=== PATIENT | female | born 1935 | race Caucasian/White ===

== ENCOUNTER 2019-02-04 20:21 | Inpatient (IN) | payer MEDICARE, BC ==
[~2019-02-04] VITALS: Ht 152.4 cm; Wt 63.5 kg
--- OUTSIDE RECORDS SUMMARY | ~2019-02-04 | XMS | Encounter Summary ---
Demographics + + + | Address | [address] | | | [place] [address] | + + + | Home Phone | | + + + | Preferred Language | Unknown | + + + | Marital Status | | + + + | Baptist Affiliation | 1013 | + + + | Race | Unknown | + + + | Ethnic Group | Unknown | + + + Author + + + | Author | [facility] | | | and [place] | + + + | Organization | [facility] | | | and [place] | + + + | Address | Unknown | + + + | Phone | Unavailable | + + + Support + + +---------+ + | Name | Relationship | Address | Phone | + + +---------+ + | Guillermina Ashley | ECON | Unknown | | + + +---------+ + | Anthony Ashley | ECON | Unknown | | + + +---------+ + Care Team Providers + +------+ + | Care Senior Graphic Designer Name | Role | Phone | + +------+ + | Darion Cohn DO | PCP | | + +------+ + Encounter Details +--------+---------+ + + + | Date | Type | Department | Care Team | Description | +--------+---------+ + + + | 12/06/ | Office | [facility] | Angel Alcantara MD | CKD (chronic kidney | | 2019 | Visit | [facility]PHROLOG[facility] [place] | [address] [place] | disease) stage 3, | | | | [address] [place] | [address] [place], [place] | GFR 30-59 ml/min | | | | [address] [place], [place] | [address] | (HCC) (Primary Dx); | | | | [address] | | Persistent | | | | [phone] | | proteinuria; | | | | | | Hypomagnesemia; | | | | | | Electrolyte | | | | | | imbalance risk; | | | | | | Secondary | | | | | | hyperparathyroidism | | | | | | (HCC) | +--------+---------+ + + + Social History + + + +--------+ + | Tobacco Use | Types | Packs/Day | Years | Date | | | | | Used | | + + + +--------+ + | Former Smoker | Cigarettes | 0 | 25 | Quit: 02/17/2002 | + + + +--------+ + + +---+---+---+ | Smokeless Tobacco: | | | | | Never Used | | | | + +---+---+---+ + + | Comments: quit in 2000 | + + + + +---------+ + | Alcohol Use | Drinks/We | oz/Week | Comments | | | ek | | | + + +---------+ + | No | | | | + + +---------+ + + + + | Sex Assigned at | Date Recorded | | | | + + + | Not on file | | + + + + + + + | Job Start Date | Occupation | Industry | + + + + | Not on file | Not on file | Not on file | + + + + + + + + | Travel History | Travel Start | Travel End | + + + + + + | No recent travel history available. | + + documented as of this encounter Last Filed Vital Signs + + + + | Vital Sign | Reading | Time Taken | + + + + | Blood Pressure | 111/60 | 12/06/20181208 PDT | + + + + | Pulse | 61 | 12/06/20181208 PDT | + + + + | Temperature | - | - | + + + + | Respiratory Rate | - | - | + + + + | Oxygen Saturation | 93% | 12/06/20181208 PDT | + + + + | Inhaled Oxygen | - | - | | Concentration | | | + + + + | Weight | 64.8 kg (142 lb 14.4 | 12/06/2018 1209 PDT | | | oz) | | + + + + | Height | 152.4 cm (5') | 12/06/2018 1209 PDT | + + + + | Body Mass Index | 27.91 | 12/06/2018 1209 PDT | + + + + documented in this encounter Patient Instructions Patient Instructions Angel Alcantara MD - 12/06/2018 11:50 PDTDiscussions/Recommendations: I discussed today with Ms. Ashley the meaning of her CKD and the interaction of that w ith her hemodynamics. I stressed the importance of keeping her BP controlled and avoiding getting dehydrated if we are to have a chance at helping preserve her renal function. she showed good understa nding. I gave her instructions on how to chart her blood pressure in the appropriate manner at home, she showed good understanding. she is to call us if they fall outside of the optimal provided range. she will bring her sphygmomanometer for validation once a year. she will abide by a low salt diet. She will avoid all kinds of NSAIDs for analgesia. Also: I downtitrated slowly her Torsemide to 10 mg alternating with 5 mg every other day; if h er dyspnea or leg edema come back, she is to go right back to the Torsemide at 10 mg daily. BP Charting: she will bring me back her home weights & BP charts in 8 weeks. At that quan e, I will decide whether any changes to her vasoactive regimen are warranted. She will F/U closely with the Cardiology team. She will F/U with your office regularly. She will have RFP, Magnesium, CBC, Urine total oqqdqbc-ur-nfdvgawsic ratio done before s he comes back in 4 months. documented in this encounter Progress Notes Angel Alcantara MD - 12/06/2018 1150 PDT Patient Active Problem List Diagnosis Date Noted POA Persistent atrial fibrillation 11/22/2018 Unknown Orthostatic hypotension 11/22/2018 Unknown Hypoxia 11/22/2018 Unknown Falls frequently 09/13/2018 Unknown Pacemaker 07/12/2018 Unknown Generalized weakness 03/08/2018 Unknown Typical atrial flutter 10/05/2017 Unknown Bilateral carotid artery stenosis 08/01/2017 Unknown Tricuspid regurgitation 08/01/2017 Unknown Fusion of spine of cervical region 10/30/2015 Unknown Chronic combined systolic and diastolic congestive heart failure 12/23/2014 Unknown Pulmonary hypertension 12/23/2014 Unknown Sinus node dysfunction 12/22/2014 Unknown Persistent atrial fibrillation 12/22/2014 Unknown Lumbar facet arthropathy 10/17/2014 Unknown Lumbar stenosis 09/13/2014 Unknown RIGOBERTO (obstructive sleep apnea) Unknown Hearing loss Unknown Broken heart syndrome Unknown Seizures Unknown Depression Unknown Periodic limb movement disorder (PLMD) Unknown Stress-induced cardiomyopathy 11/11/2012 Unknown Hypokalemia 11/09/2012 Unknown NSTEMI (non-ST elevated myocardial infarction) 11/02/2012 Unknown Essential hypertension with goal blood pressure less than 130/80 01/14/2011 Unknown Hypomagnesemia 01/14/2011 Unknown Persistent proteinuria 01/14/2011 Unknown Stage 4 chronic kidney disease 01/14/2011 Unknown Subdural hematoma, post-traumatic 10/03/[address] Cohn: I saw your patient Ms. Ashley in F/U today. As you are familiar with her case, I will no t state her past history in detail. Briefly, she is a 82 y.o. female patient with past hist ory as delineated above; she is here to follow up on her CKD & its associated complications . 07/2018: stage 1 CASEY (acute kidney injury) that is hemodynamic in the setting of ADHF. ER visit April 2017 for shortness of breath. She had increasing sore shortness of breath after not taking her furosemide for 2 days. ER lab work showed creatinine of 0.99, GFR 54 an d potassium 3.9. BNP 965. She says that she feels 'good ' today, shortness of breath improved after resuming Torsemid e. she has chronic SOTO - wears O2 only at night. she denies any blurred vision, tinnitus, headache, fever, chills, or cough. No nausea, v omiting, abdominal pain, diarrhea, melena, or hematochezia. No chest pain, palpitation, diz ziness, loss of consciousness, orthopnea, paroxysmal nocturnal dyspnea, or leg edema. She us es O2 at night. No dysuria, hematuria, incontinence, or symptoms of UTI; she has 2 nightly nocturia. No history of passing kidney stones. The following portions of the patient's history were reviewed and updated as appropriate: a llergies, current medications, past medical history, past social history, past surgical hist ory, family history and problem list. *I also reviewed with her the records from her most recent hospitalization, including the d ischarge summary. She lives in [place], [place] with her in their own home, 60+ years, daughter lives in [place], [place]. She was a school of nursing director. As in History of Present Illness & in Assessment. All the pertinent systems were reviewed a nd were otherwise negative. Current Outpatient Prescriptions Medication Sig Dispense Refill acetaminophen (TYLENOL) 325 MG tablet Take 650 mg by mouth as needed. allopurinol (ZYLOPRIM) 100 MG tablet Take 100 mg by mouth daily. amiodarone (PACERONE) 200 MG tablet Take 1 tablet by mouth daily. 30 tablet 11 apixaban (ELIQUIS) 2.5 MG tablet Take 1 tablet by mouth 2 (two) times daily. 60 tablet 11 aspirin 81 MG tablet Take 1 tablet by mouth daily. 30 tablet 11 atorvastatin (LIPITOR) 80 MG tablet Take 80 mg by mouth daily. Cholecalciferol (VITAMIN D3) 1000 UNITS capsule Take 5,000 Units by mouth nightly. cyanocobalamin (VITAMIN B-12) 500 MCG tablet Take 500 mcg by mouth daily. digoxin (LANOXIN) 0.125 MG tablet Take 1 tablet by mouth every 3 (three) days. 10 table t 11 docusate sodium (COLACE) 100 MG capsule Take 100 mg by mouth 2 (two) times daily. ferrous sulfate, 65 FE, 324 (65 FE) MG EC tablet Take 65 mg of iron by mouth 3 (three) times daily with meals. folic acid (FOLVITE) 1 MG tablet Take 1 mg by mouth daily. gabapentin (NEURONTIN) 300 MG capsule Take 300 mg by mouth 2 (two) times daily. HYDROcodone-acetaminophen (NORCO) 10-325 MG per tablet Take 1 tablet by mouth every 4 ( four) hours as needed for Pain. 180 tablet 0 levothyroxine (SYNTHROID) 100 MCG tablet Take 112 mcg by mouth every morning before rosario akfast. MAGNESIUM PO Take 64 mg by mouth 3 (three) times daily. metoprolol (TOPROL-XL) 25 MG 24 hr tablet Take 1 tablet by mouth 2 (two) times daily. ( Patient taking differently: Take 12.5 mg by mouth nightly.) 60 tablet 11 potassium chloride SA (K-DUR) 10 MEQ tablet Take 1 tablet by mouth daily. 30 tablet 11 pramipexole (MIRAPEX) 0.5 MG tablet Take 0.5 mg by mouth nightly. Take two tablets nigh tly. sertraline (ZOLOFT) 100 MG tablet Take 100 mg by mouth daily. torsemide (DEMADEX) 20 MG tablet Take 0.5 tablets by mouth daily. 30 tablet 11 ranitidine (ZANTAC) 150 MG tablet Take 150 mg by mouth daily. No current facility-administered medications for this visit. Facility-Administered Medications Ordered in Other Visits Medication Dose Route Frequency Provider Last Rate Last Dose regadenoson (LEXISCAN) injection 0.4 mg 0.4 mg Intravenous Img Once PRN Juve Lopez MD Physical Exam: BP 111/60 | Pulse 61 | Ht 1.524 m (5') | Wt 64.8 kg (142 lb 14.4 oz) | SpO2 93% | BMI 27.91 kg/m General appearance: Pleasant, elderly female, not in acute distress. Uses 2ww. Neck: Supple without tracheal deviation or jugular venous distension. Head and ENT: Head is atraumatic. The oropharynx is without erythema or thrush. Eyes: Anicteric. The extraocular muscle movements are normal. Lungs: Clear to auscultation bilaterally. There are no wheezes. Heart: Regular rate and rhythm without any rub, gallop. No murmur. Abdominal exam: Obese. Soft and nontender with normal bowel sounds. Musculoskeletal: No costovertebral angle tenderness bilaterally. Extremities: Warm to touch with trace leg edema, support hose on. There is no cyanosis. Skin: There are no rashes, petechiae, or ecchymosis. Neurological: Awake, alert, and oriented to time, place, and person. Normal gross motor po wer. There is no asterixis. Lab Results Component Value Date BUN 35 (H) 08/24/2018 CREATININE 1.9 (H) 08/24/2018 EGFR 25 (L) 08/24/2018 NA 141 08/24/2018 K 4.0 08/24/2018 CL 110 (H) 08/24/2018 CO2 21 (L) 08/24/2018 CA 8.8 08/24/2018 PHOS 3.4 08/24/2018 MG 2.0 08/24/2018 ALB 3.7 08/24/2018 HGB 12.3 08/24/2018 URICACID 4.7 03/24/2017 WBC 6.94 08/24/2018 HCT 36.9 08/24/2018 FERRITIN 520 (H) 11/14/2012 LABIRON 40 04/09/2016 LABPROT 0.172 08/24/2018 [id number] 53 05/11/2017 Assessment: Ms. Ashley is a 82 y.o. female patient with stage IV CKD on a background of longstanding hypertension & recurrent CASEY's. 07/2018: stage 1 CASEY (acute kidney injury) that is hemodynamic in the setting of ADHF. She had a severe CASEY in the summer of 2012 (SDH; seizure; cardiomyopathy with EF 25%; PAD); needed HD x2 sessions, before her GFR improved. RENAL FUNCTION: Fairly stable BLOOD PRESSURE: Low at home, mostly in the 100's systolic. BLOOD SUGAR: Reportedly normal ELECTROLYTES: Normal ANEMIA: None now VITAMIN D: Deficiency is corrected with treatment PARATHYROID HORMONE: Mildly up URIC ACID: Improved now PROTEINURIA: Mild historically URINALYSIS: No UTI symptoms today, no hematuria, possible colonizer VOLUME STATUS: Euvolumic. Discussions/Recommendations: I discussed today with Ms. Ashley the meaning of her CKD and the interaction of that w ith her hemodynamics. I stressed the importance of keeping her BP controlled and avoiding getting dehydrated if we are to have a chance at helping preserve her renal function. she showed good understa nding. I gave her instructions on how to chart her blood pressure in the appropriate manner at home, she showed good understanding. she is to call us if they fall outside of the optimal provided range. she will bring her sphygmomanometer for validation once a year (ok in spring 2018). she will abide by a low salt diet. She will avoid all kinds of NSAIDs for analgesia. Also: I downtitrated slowly her Torsemide to 10 mg alternating with 5 mg every other day; if h er dyspnea or leg edema come back, she is to go right back to the Torsemide at 10 mg daily. BP Charting: she will bring me back her home weights & BP charts in 8 weeks. At that quan e, I will decide whether any changes to her vasoactive regimen are warranted. She will F/U closely with the Cardiology team. She will F/U with your office regularly. She will have RFP, Magnesium, CBC, Urine total wfrkhen-kw-ignvqmtosp ratio done before s he comes back in 4 months. I spent 15 minutes of this 25-minute visit in education, counseling and answering all of he r questions to her satisfaction. Thank you Dr. Cohn for the opportunity to see this patient in follow up on an urgent basis today. Please do not hesitate to call me at any time with questions or concerns. Truly yours, Angel Alcantara MD documented in this encount er Plan of Treatment +--------+ + + + + | Date | Type | Specialty | Care Team | Description | +--------+ + + + + | 02/21/ | Procedure | Cardiology | | | | 2018 | visit | | | | +--------+ + + + + | 02/23/ | Office | Cardiology | Myron Hernandez, | | | 2018 | Visit | | MD [address] | | | | | | [place] | | | | | | [address] | | | | | | | | +--------+ + + + + | 02/23/ | Procedure | Cardiology | | | | 2018 | visit | | | | +--------+ + + + + | 05/23/ | Procedure | Cardiology | | | | 2019 | visit | | | | +--------+ + + + + documented as of this encounter Visit Diagnoses + + | Diagnosis | + + | CKD (chronic kidney disease) stage 3, GFR 30-59 ml/min ([facility]) - Primary Chronic kidney | | disease, Stage III (moderate) | + + | Persistent proteinuria Proteinuria | + + | Hypomagnesemia Disorders of magnesium metabolism | + + | Electrolyte imbalance risk Other specified conditions influencing health status | + + | Secondary hyperparathyroidism (HCC) Secondary hyperparathyroidism (of renal origin) | + + documented in this encounter"
--- OUTSIDE RECORDS SUMMARY | ~2019-02-04 | XMS | Encounter Summary ---
Demographics + + + | Address | [address] | | | [place] [address] | + + + | Home Phone | | + + + | Preferred Language | Unknown | + + + | Marital Status | | + + + | Cheondoism Affiliation | 1013 | + + + | Race | Unknown | + + + | Ethnic Group | Unknown | + + + Author + + + | Author | [facility] | | | and [place] | + + + | Organization | [facility] | | | [...] Team Providers + +------+ + | Care Assembler Piano Name | Role | Phone | + +------+ + | Darion Cohn DO | PCP | | + +------+ + Reason for Visit + + + | Reason | Comments | + + + | Device Check | Routine | | (In-office) | | + + + Encounter Details +--------+ + + + + | Date | Type | Department | Care Team | Description | +--------+ + + + + | 11/22/ | Procedure | [facility] | | Persistent atrial | | 2019 | visit | CARDIOLOGY [place] | | fibrillation (HCC) | | | | [address] | | (Primary Dx); | | | | [place], [place] | | Typical atrial | | | | [address] | | flutter (HCC); | | | | [phone] | | Pacemaker | +--------+ + + + + Social History + + [...] + + documented as of this encounter Plan of Treatment +--------+ + + + [...] | | | | | [place] | | | | | | [address] | | | | | | | | +--------+ + + + + | 02/23/ | Procedure | Cardiology | | | | 2018 | visit | | | | +--------+ + + + + | 05/23/ | Procedure | Cardiology | | | | 2019 | visit | | | | +--------+ + + + + + +--------+ + + | Name | Priori | Associated Diagnoses | Order Schedule | | | ty | | | + +--------+ + + | Device Interrogation | Routin | Persistent atrial | Ordered: 11/22/2018 | | | e | fibrillation (HCC) | | | | | Typical atrial | | | | | flutter (HCC) | | | | | Pacemaker | | + +--------+ + + documented as of this encounter Visit Diagnoses + + | Diagnosis | + + | Persistent atrial fibrillation - Primary Atrial fibrillation | + + | Typical atrial flutter (HCC) Atrial flutter | + + | Pacemaker Cardiac pacemaker in situ | + + documented in this encounter"
--- OUTSIDE RECORDS SUMMARY | ~2019-02-04 | XMS | Encounter Summary ---
Demographics + + + | Address | [address] | | | [place] [address] | + + + | Home Phone | | + + + | Preferred Language | Unknown | + + + | Marital Status | | + + + | Jainism Affiliation | 1013 | + + + | Race | Unknown | + + + | Ethnic Group | Unknown | + + + Author + + + | Author | [facility] | | | and [place] | + + + | Organization | [facility] | | | and [...] Team Providers + +------+ + | Care Guidance Secretary Name | Role | Phone | + [...] + + | 11/22/ | Procedure | [facility] | | Persistent atrial | | 2019 | visit | CARDIOLOGY [place] | | fibrillation (HCC) | | | | [address] | | (Primary Dx); | | | | [place], [place] | | Typical atrial | | | | [address] | | flutter (HCC); | | | | [phone] | | Pacemaker | +--------+ + + [...] | | | | | [place] | | | | | | [address] | | | | | | | [...]
--- OUTSIDE RECORDS SUMMARY | ~2019-02-04 | XMS | Encounter Summary ---
Demographics + + + | Address | [address] | | | [place] [address] | + + + | Home Phone | | + + + | Preferred Language | Unknown | + + + | Marital Status | | + + + | Samaritan Affiliation | 1013 | + + + | Race | Unknown | + + + | Ethnic Group | Unknown | + + + Author + + + | Author | [email or web address] [employer] (Historical as of | | | 11-19-18) | + + + | Organization | [facility] [employer] (Historical as of | | | 11-19-18) | + + + | Address | [...] Team Providers + +------+ + | Care Wash Crew Person Name | Role | Phone | + +------+ + | Darion Cohn MD | PCP | | + +------+ + Reason for Visit + + + | Reason | Comments | + + + | Labs Only | 10/25/18 | + + + Encounter Details +--------+ + + + + | Date | Type | Department | Care Team | Description | +--------+ + + + + | 11/04/ | Documentati | [facility] | Richard | Labs Only (10/25/18) | | 2019 | on Only | [address] | | | | | [address] | | | | | | [place] [address] | | | | | | [phone] | | | +--------+ + + + + Social History + +-------+ +--------+ + | Tobacco Use | Types | Packs/Day | Years | Date | | | | | Used | | + +-------+ +--------+ + | Former Smoker | | 0 | 25 | Quit: 2001 | + +-------+ +--------+ + + +---+---+---+ | Smokeless Tobacco: [...] on file | | + + + as of this encounter Plan of Treatment +--------+ + + + + | Date | Type | Specialty | Care Team | Description | +--------+ + + + + | 02/21/ | Documentati | Cardiology | | | | 2019 | on Only | | | | +--------+ + + + + | 05/23/ | Documentati | Cardiology | | | | 2019 | on Only | | | | +--------+ + + + + as of this encounter Procedures + +--------+ + + + | Procedure Name | Priori | Date/Time | Associated Diagnosis | Comments | | | ty | | | | + +--------+ + + + | DIGOXIN LEVEL | Routin | 10/25/2018 | | Results for this | | | e | 12:15 PM | | procedure are in the | | | | PDT | | results section. | + +--------+ + + + | BASIC METABOLIC | Routin | 10/25/2018 | | Results for this | | PANEL | e | 12:15 PM | | procedure are in the | | | | PDT | | results section. | + +--------+ + + + in this encounter Results Basic metabolic panel (10/25/2018 12:15 PM) + + + + + | Component | Value | Ref Range | Performed At | + + + + + | GLUCOSE | 139 (A) | 70 - 100 mg/dL | | + + + + + | BUN | 20 | 6 - 23 mg/dL | | + + + + + | CREATININE | 1.18 (A) | 0.70 - 1.11 mg/dL | | + + + + + | BUN/CREAT | 16.9 | 6.0 - 28.6 | | + + + + + | CALCIUM | 9.1 | 8.5 - 10.3 mg/dL | | + + + + + | SODIUM | 143 | 132 - 143 mmol/L | | + + + + + | POTASSIUM | 3.4 (A) | 3.6 - 5.1 mmol/L | | + + + + + | CHLORIDE | 106 | 95 - 112 mmol/L | | + + + + + | CO2 | 27 | 19 - 31 mmol/L | | + + + + + | ANION GAP AGAP | 13.4 | 7 - 21 mmol/L | | + + + + + | EGFR | 44 (A) | 60 - 140 mg/dL | | + + + + + + + | Specimen | + + | Blood | + + Digoxin (10/25/2018 12:15 PM) + + + + + | Component | Value | Ref Range | Performed At | + + + + + | DIGOXIN LEVEL | 0.62 (A) | 0.8 - 2.0 | | + + + + + + + | Specimen | + + | Blood | + + in this encounter Visit Diagnoses Not on filein this encounter"
--- OUTSIDE RECORDS SUMMARY | ~2019-02-04 | XMS | Encounter Summary ---
Demographics + + + | Address | [address] | | | [place] [address] | + + + | Home Phone | | + + + | Preferred Language | Unknown | + + + | Marital Status | | + + + | Mormonism Affiliation | [id number] | + + + | Race | Unknown | + + + | Ethnic Group | Unknown | + + + Author + + + | Author | [facility] | | | and [place] | + + + | Organization | [facility] | | | [...] Team Providers + +------+ + | Care Waxed Bag Machine Operator Name | Role | Phone | + +------+ + | Darion Cohn DO | PCP | | + +------+ + Encounter Details +--------+---------+ + + + | Date | Type | Department | Care Team | Description | +--------+---------+ + + + | 11/22/ | Office | [facility] | Myron Hernandez, | Persistent atrial | | 2018 | Visit | [facility] | [address] | fibrillation (HCC); | | | | [address] | [place], [place] | Orthostatic | | | | [place], [place] | [address] | hypotension; | | | | [address] | | Hypoxia; Essential | | | | [phone] | | hypertension with | | | | | | goal blood pressure | | | | | | less than 130/80; | | | | | | Sinus node | | | | | | dysfunction (HCC); | | | | | | Typical atrial | | | | | | flutter (HCC) | +--------+---------+ + + + Social [...] + + + | Blood Pressure | 134/64 | 11/22/2018 1015 PDT | + + + + | Pulse | 84 | 11/22/20185 PDT | + + + + | Temperature | - | - | + + + + | Respiratory Rate | - | - | + + + + | Oxygen Saturation | 98% | 11/22/20185 PDT | + + + + | Inhaled Oxygen | - | - | | Concentration | | | + + + + | Weight | 71.2 kg (157 lb) | 11/22/20185 PDT | + + + + | Height | 152.4 cm (5') | 11/22/2018 1015 PDT | + + + + | Body Mass Index | 30.66 | 11/22/2018 1015 PDT | + + + + documented in this encounter Patient Instructions Patient Instructions Myron Hernandez MD - 11/22/2018 10:00 PDTStart midodrine 5 mg at 6 A M, 10 AM, and 2 PM daily. If you get lightheaded may take another 5 mg immediately. If con sistently lightheaded, increase it to every 3 hours during the day starting at 6 AM 9 AM noo n and 3 PM Stop fludrocortisone (Florinef) Add metoprolol succinate starting with 6.25 mg daily for a week or 2 followed by 12.5 mg da duyen for a week or 2, and keep increasing it by 6.25 mg every week or 2 until you are at leas t 50 mg/day Start apixaban 5 mg twice per day Increase digoxin to 0.125 mg 3 days/week Stop amiodarone Decrease torsemide to 10 mg daily documented in this encounter Progress Notes Myron Hernandez MD - 11/22/2018 1000 PDTFormatting of this note might be different from t yenni original. ELECTROPHYSIOLOGY OUTPATIENT FOLLOW UP PATIENT NAME: Gene Ashley : 1935: AGE: 83 y.o. (home) [phone] (work): PRIMARY CARE: Darion Cohn DO Requesting Physician: Dr. Cohn Plan Problem Persistent Atrial Fibrillation (Hcc) Will now do a rate control strategy. Stop amiodarone. Resume metoprolol starting with 6. 25 mg/day and gradually increasing that to at least 25 or 50 mg/day. Resume apixaban 5 mg t wice daily since she is no longer falling. Increase digoxin to 0.125 mg 3 days/week Orthostatic Hypotension She has severe orthostatic hypotension that has improved with the addition of midodrine an d Florinef. Unfortunately, with her LV systolic dysfunction, the Florinef is leading to flu id retention and volume overload. She is now on torsemide twice per day because of edema an d shortness of breath. I recommended stopping Florinef and decreasing torsemide to 10 mg da duyen. Increase midodrine to 5 mg at 6 AM, 9 AM, noon, and 3 PM daily. She can take an extra 5 mg as needed for dizziness. Hypoxia Her saturations have dropped into the 80s sometimes with exertion. Oxygen has been recomm ended on my wholeheartedly agree with that. She uses CPAP when sleeping or if she becomes s hort of breath. Falls Frequently 3 falls today-evidence of orthostatic hypotension Pacemaker 07/12/2018 Appropriate pacer function was seen today. Atrial pacing 47%, RV pacing 28%, DDDR 60-110 b pm. Right ventricular threshold 0.75 V at 0.6 ms with an impedance of 440 ohms. Underlying atrial flutter with irregular ventricular response approximately 40 bpm. Mode switch 51% o f the time was 545 AMS episodes. AT/AF burden is 50% with the most recent episode starting on May 15, 2018 with a peak V rate of 173 bpm consistent with atrial flutter with rapid ventricular response. She has had 3 high ventricular rate episodes all consistent with atr ial flutter with rapid ventricular response 08/18/18: She was in complete heart block today, so the device was programmed back into a DDDR pacing mode. The base rate was left at 65 bpm and rest rate 60 bpm. The pacing threshold was 0.75 V at 0.6 ms in the atrium and 0.5 V at 0.6 ms and the right ventricle. R waves were 10.6 mV. RV pacing has occurred 48% of the time. Appropriate device function was seen. Generalized Weakness Typical Atrial Flutter (Hcc) This lady has had atrial flutter on 2 different occasions and she's had 2 cardioversions r ecently. Unfortunately she reverted back to atrial flutter. An atrial flutter ablation wa s performed in October 2017. She has had no recurrence of flutter since then. She has had parox ysmal atrial fibrillation in the past. Continue amiodarone. 07/12/2018 Clinical recurrence of persistent atrial flutter is noted on her device since May 15, 2018. Her rate has overall been reasonably well-controlled. She has noted increased fatigu e. She is also falling more frequently. She continues on amiodarone 300 mg daily and has b een compliant with her medications. Despite nebs protocol in the atrium, she could not be p aced out of atrial flutter today. The goals risks and benefits of an electrical cardioversi on were discussed with the patient and her daughter at length today. They desire to proceed . We will arrange a cardioversion for tomorrow. She has been therapeutic on her INR for e past month and in fact has been supratherapeutic at times. At no time in the last month h as her INR been less than 2.0. INR performed today in the office was 2.7. Bilateral Carotid Artery Stenosis Bilateral carotid stenosis of 50-69% noted on ultrasound July 2017. On aspirin. Asymptoma tic. Tricuspid Regurgitation Moderate mitral regurgitation and moderate to severe TR were seen on an echocardiogram. In crease hydralazine to 25 mg twice a day for afterload reduction Formatting of this note may be different from the original. Moderate to severe tricuspid regurgitation seen on an echocardiogram. An echo in May 2017 revealed the followin. Overall left ventricular systolic function is normal with, an EF of 40 %. 2. Restrictive LV diastolic filling pattern, consistent with elevated LA pressure and sever e dysfunction (grade III). 3. There is mild aortic stenosis present. 4. Moderate mitral regurgitation is present. 5. Moderate to severe tricuspid regurgitation present. 6. There is equivocal severe pulmonary hypertension. will add low-dose afterload reduction with hydralazine. Not an CARMEN or ARB candidate becau se of renal failure. Add intravenous diuresis. 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 Moderately severe TR. Moderate pulm onary hypertension and ejection fraction 40% Paroxysmal atrial fibrillation and flutter by h istory. In A. Fib with occasional rapid rates. An atrial flutter ablation was performed on 2017. 08/18/18 She returns today in a VVI mode, in complete heart block with sinus rhythm. Rate 60 bpm. T he return to sinus rhythm was unexpected. She was programmed back into a DDD pacing mode, an d will hopefully feel better with AV synchrony restored. The isosorbide dinitrate will be d iscontinued. Try to increase metoprolol back to 25 mg twice per day. Continue low-dose digox in. Resume amiodarone 200 mg per day. Continue torsemide 10 mg per day. Decrease potassium t o 10 mEq per day. Pulmonary Hypertension (Hcc) Formatting of this note may be different from the original. The last echo from March 2018 revealed an ejection fraction of 40%, mild to moderate pul monary hypertension, moderate to severe tricuspid regurgitation, mild to moderate mitral reg urgitation, severe left atrial enlargement and moderate right atrial enlargement. Sinus Node Dysfunction (Hcc) She has a permanent [employer] permanent pacemaker that was placed on August 02, 2017 because of sinus node dysfunction. 07/12/2018 Appropriate pacer function was seen today. Atrial pacing 47%, RV pacing 28%, DDDR 60-110 b pm. Right ventricular threshold 0.75 V at 0.6 ms with an impedance of 440 ohms. Underlying atrial flutter with irregular ventricular response approximately 40 bpm. Mode switch 51% o f the time was 545 AMS episodes. AT/AF burden is 50% with the most recent episode starting on May 15, 2018 with a peak V rate of 173 bpm consistent with atrial flutter with rapid ventricular response. She has had 3 high ventricular rate episodes all consistent with atr ial flutter with rapid ventricular response. 11/22/2018: The underlying rhythm is atrial fibrillation. Pacing has occurred in the ventricle 68% of the time and in the right atrium less than 1% of the time. The pacemaker was programmed int o a VVI pacing mode today, with a lower rate of 60 and hysteresis of 50 bpm to minimize vent ricular pacing. She has been pacing more in the ventricle than necessary, so that may be co ntributing to her LV systolic function deterioration. A rate control strategy will be follo wed for atrial fibrillation and flutter in the future. Amiodarone will be stopped. Persistent Atrial Fibrillation (Hcc) Atrial fibrillation was first diagnosed 2-1/2 years ago. Amiodarone was added on February 23, 2017 (200 mg per day). She is anticoagulated with warfarin . Target INR 2-3. Her chads 2 vascular score is 7.She takes CPAP and 2 L of oxygen nocturnally because of sleep apnea. She had a flutter ablation in October of this year. Continue amiodarone to prevent the A. Fib . 07/12/2018 No EGMS consistent with AFIB noted on her device interrogation. Consider changing to Eliqui s given frequent supratherapeutic INR results recently. 07/20/18: She reverted to atrial flutter/fibrillation the day after her recent cardioversion. A rate control strategy will therefore be followed. She has severe left atrial enlargement, moder ate pulmonary hypertension, moderately severe TR, moderate MR and at least moderate LV systo lic dysfunction, so the chance of restoring and maintaining sinus rhythm is very low. Amiod arone will be stopped. Digoxin will be added, taking care to dose very carefully, since she has amiodarone on board and has renal failure and is elderly. After 1 mg digoxin load, she will be given 0.125 mg 2 days per week. Increase metoprolol to 25 mg twice a day if she to lerates that, for rate control. Switch from warfarin to apixaban 2.5 mg twice a day once th e INR is less than 2.0. The INR was 6, four days ago, and the warfarin has been held. 08/18/18: Decrease apixaban to 2.5 mg twice a day. Resume amiodarone since she is in sinus rhythm tod ay. 200 mg per day. 11/22/2018: She is in atrial fibrillation with a controlled ventricular response today. Very unlikely to maintain sinus rhythm chronically so the amiodarone will be stopped and a rate control st rategy will be employed. Increase digoxin to 0.125 mill grams 3 days/week and try and get h er back on metoprolol very slowly. She did not tolerate Coreg from a blood pressure perspec tive and has not tolerated higher doses of metoprolol in the past. Is now on midodrine for blood pressure and feeling better. Lumbar Facet Arthropathy Last Assessment & Plan: Please see discussion under lumbar stenosis Lumbar Stenosis Last Assessment & Plan: This patient symptoms are consistent with neurogenic claudication. Her lumbar MRI that show ed severe lumbar stenosis at L4-5 and moderate-severe L2-3, moderate L3-4. She saw Dr. roca for her current complaints of low back pain with bilateral lower extremity weakness. She do es have symptoms consistent with neurogenic claudication. Dr. roca felt that she was at hig h risk for surgery due to her medical history. Encouraged her to try interventional treatmen t. We will plan on right and left L5 transforaminal epidural steroid injections under fluoro scopic guidance. Plan, alternatives, risks and potential benefits of the procedure were explained to the pat ient in great detail. The patient understands that there is no guarantee they will get pain relief with this procedure. They also understand that if they do get pain relief that ther e is no way to know how long it will last. They also understand there is a risk to the proc edure itself which includes but are not limited to infection, abscess, hematoma, nerve damag e, paraplegia or quadriplegia, increased pain, spinal headache, stroke, and side effects fro m the medications themselves. The patient wishes to proceed. Stress-Induced Cardiomyopathy takatsubo cardiomyopathy was diagnosed 5 years ago. Subsequent cardiac catheterization i n February 2015 revealed a 40% ostial LAD lesion but no other significant coronary disease. A nuclear stress test in 2018 was negative for ischemia. The ejection fraction in March 2018 was 40% in the context of moderately severe TR and moderate MR. Severe LAE. Hypokalemia . Potassium is 3.2 and was replaced earlier today. Magnesium was also supplemented. Nstemi (Non-St Elevated Myocardial Infarction) (Hcc) Essential Hypertension With Goal Blood Pressure Less Than 130/80 Her blood pressure has been low recently and she has been unable to function. She is now off of the beta-blockers and afterload reduction and is on Florinef and midodrine and feels much better. Hypomagnesemia Persistent Proteinuria Stage 4 Chronic Kidney Disease (Hcc) Subdural Hematoma, Post-Traumatic (Hcc) She had frequent falls and smacked her head. Acute Renal Failure (Hcc) (Resolved) Resolved SUMMARY OF EP RECOMMENDATIONS: See below, under patient instructions HISTORY OF PRESENT ILLNESS This patient presents 11/22/2018, feeling better. She has had multiple admissions since I s een her, because of falls including one with a subdural hematoma after hitting her head. Sh loc is now off of anticoagulation and carvedilol and is on Midodrine and Florinef because of h ypotension (orthostatic in nature). She has had more edema lately and is now on torsemide t wice per day if needed for edema and shortness of breath with exertion. On current therapy, she feels the best she has in quite some time. Has not had any recent significant dizzy sp ells. There have been no falls for several weeks. No symptoms of angina or PND reported. She is able to go outside and work in the yard a little bit. She has been taking midodrine 5 mg at 7 AM, noon, and towards bedtime. Allergies Allergen Reactions Metoclopramide Other (See Comments) Restless leg Aspirin Diarrhea Pt states she can tolerate the Low dose of Asprin, diarrhea if dose increases Pt states she can tolerate the Low dose of Asprin, diarrhea if dose increases. Current Medications Current Outpatient Medications: acetaminophen (TYLENOL) 500 mg tablet, Take 500 mg by mouth every 6 hours as needed., Disp: , Rfl: allopurinol (ZYLOPRIM) 100 mg tablet, Take 100 mg by mouth Daily., Disp: , Rfl: apixaban (ELIQUIS) 5 mg tablet, Take 1 tablet by mouth 2 times daily., Disp: 60 tablet , Rfl: 11 aspirin 81 mg EC tablet, Take 81 mg by mouth Daily., Disp: , Rfl: atorvaSTATin (LIPITOR) 80 MG tablet, Take 80 mg by mouth Daily., Disp: , Rfl: Cholecalciferol (VITAMIN D3) 5000 UNITS CAPS, Take by mouth., Disp: , Rfl: Cyanocobalamin (VITAMIN B 12 PO), Take 500 mcg by mouth Daily., Disp: , Rfl: digoxin (LANOXIN) 125 mcg tablet, Take 1 tablet by mouth Three times a week., Disp: 30 tablet, Rfl: 11 docusate sodium (COLACE) 100 mg capsule, Take 100 mg by mouth 2 times daily., Disp: , Rfl: ferrous sulfate 325 mg tablet, Take 325 mg by mouth daily (with breakfast)., Disp: , R fl: folic acid 1 mg tablet, Take 1 mg by mouth Daily., Disp: , Rfl: gabapentin (NEURONTIN) 300 mg capsule, Take 600 mg by mouth Daily., Disp: , Rfl: HYDROcodone-acetaminophen (NORCO) 10-325 mg per tablet, Take 1 tablet by mouth every 4 hours as needed for Pain., Disp: , Rfl: levothyroxine (SYNTHROID) 112 mcg tablet, Take 112 mcg by mouth every morning (before breakfast)., Disp: , Rfl: magnesium chloride (MAG64) 64 mg TBCR, Take 64 mg by mouth 4 times daily., Disp: , Rfl : metoprolol succinate (TOPROL-XL) 25 mg 24 hr tablet, Take 1 tablet by mouth Daily., Di sp: 30 tablet, Rfl: 11 midodrine (PROAMATINE) 5 mg tablet, Take 1 tablet by mouth 4 times daily. 1 tablet at 6 AM, 9 AM, noon, and 3 PM daily, Disp: 120 tablet, Rfl: 11 potassium chloride (K-DUR) 20 mEq tablet, Take 20 mEq by mouth 2 times daily., Disp: , Rfl: pramipexole (MIRAPEX) 0.5 MG tablet, Take 0.5 mg by mouth Daily., Disp: , Rfl: raNITIdine (ZANTAC) 150 mg tablet, Take 150 mg by mouth 2 times daily., Disp: , Rfl: sertraline (ZOLOFT) 100 mg tablet, Take 100 mg by mouth Daily., Disp: , Rfl: torsemide (DEMADEX) 10 mg tablet, Take 10 mg by mouth Daily., Disp: , Rfl: The past history, social history, family history and problem list were reviewed and update d with changes of any significance. DATA Laboratory values which I reviewed 11/22/2018 are as follows: Lab Results Component Value Date WBC 6.94 08/24/2018 RBC 3.54 (L) 08/24/2018 HGB 12.3 08/24/2018 Lab Results Component Value Date NA 143 10/25/2018 K 3.4 (A) 10/25/2018 CL 106 10/25/2018 CO2 27 10/25/2018 ANIONGAP 13.4 10/25/2018 GLUF 139 (A) 10/25/2018 BUN 20 10/25/2018 BCR 16.9 10/25/2018 EGFR 44 (A) 10/25/2018 Lab Results Component Value Date CHOL 100 06/11/2016 TRIG 118 06/11/2016 GLUF 139 (A) 10/25/2018 Lab Results Component Value Date BNP 965 (A) 04/29/2017 ROS I have personally reviewed and agree with ROS listed by MA attached. All other systems are reviewed and negative. PHYSICAL EXAM BP 134/64 | Pulse 84 | Ht 1.524 m (5') | Wt 71.2 kg (157 lb) | SpO2 98% | BMI 30.66 kg /m Physical Exam Constitutional: She is oriented to person, place, and time. She appears well-developed and well-nourished. No distress. Pleasant, elderly lady in no distress. She walks with a walker. HENT: Head: Normocephalic and atraumatic. Eyes: Pupils are equal, round, and reactive to light. Neck: No JVD present. No thyromegaly present. Cardiovascular: Normal rate, normal heart sounds and intact distal pulses. Exam reveals no gallop and no friction rub. No murmur heard. Irregular heart rhythm, with controlled heart rate. Pulmonary/Chest: Effort normal and breath sounds normal. No respiratory distress. She has n o wheezes. She has no rales. Abdominal: Soft. Bowel sounds are normal. There is no tenderness. There is no guarding. Musculoskeletal: She exhibits no edema or tenderness. Neurological: She is alert and oriented to person, place, and time. Skin: Skin is warm and dry. She is not diaphoretic. Psychiatric: She has a normal mood and affect. Her behavior is normal. Judgment and thought content normal. Vitals reviewed. Myron Hernandez MD 11/22/2018 11:20 *This report has been prepared using a voice recognition system. The report was reviewed f or accuracy, however, sound-alike word errors, addition and/or deletions may occur. If there is any question about this report please contact me. Patient Instructions Start midodrine 5 mg at 6 AM, 10 AM, and 2 PM daily. If you get lightheaded may take anoth er 5 mg immediately. If consistently lightheaded, increase it to every 3 hours during the d ay starting at 6 AM 9 AM noon and 3 PM Stop fludrocortisone (Florinef) Add metoprolol succinate starting with 6.25 mg daily for a week or 2 followed by 12.5 mg da duyen for a week or 2, and keep increasing it by 6.25 mg every week or 2 until you are at leas t 50 mg/day Start apixaban 5 mg twice per day Increase digoxin to 0.125 mg 3 days/week Stop amiodarone Decrease torsemide to 10 mg daily Jacklyn Goins Medic al Collar Tailor - 11/22/2018 1000 PDTAncillary MA Note- Electrophysiology Patient ID: Gene Ashley is a 83 y.o. female. Review of Systems Constitutional: Positive for weight loss. Negative for chills, fever and malaise/fatigue. HENT: Positive for congestion. Negative for sore throat. Respiratory: Positive for cough and shortness of breath. Cardiovascular: Positive for palpitations and leg swelling. Negative for chest pain. Gastrointestinal: Negative for abdominal pain and blood in stool. Genitourinary: Negative for hematuria. Musculoskeletal: Negative for myalgias. Neurological: Negative for dizziness, sensory change and loss of consciousness. Have you ever had a sleep study? YES Do you use oxygen? NO Do you use CPAP? YES Do you snore? YES Do you fall asleep for no reason during the day? YES Do you stop breathing at night? YES Do you feel excessively tired during the day? NO document ed in this encounter Plan of Treatment +--------+ + [...] | | 2018 | Visit | | [address] | | | | | | [place] | | | | | | [id number] | | | | | | | [...] | + + | Persistent atrial fibrillation Atrial fibrillation | + + | Orthostatic hypotension | + + | Hypoxia Hypoxemia | + + | Essential hypertension with goal blood pressure less than 130/80 | + + | Sinus node dysfunction (HCC) Sinoatrial node dysfunction | + + | Typical atrial flutter (HCC) Atrial flutter | + + documented in this encounter"
--- OUTSIDE RECORDS SUMMARY | ~2019-02-04 | XMS | Encounter Summary ---
Demographics + + + | Address | [address] | | | [place] [address] | + + + | Home Phone | | + + + | Preferred Language | Unknown | + + + | Marital Status | | + + + | Baptist Affiliation | 1013 | + + + | Race | Unknown | + + + | Ethnic Group | Unknown | + + + Author + + + | Author | [facility] | | | and [place] | + + + | Organization | [facility] | | | and [...] Team Providers + +------+ + | Care Library Circulation Clerk Name | Role | Phone | + +------+ + | Darion Cohn DO | PCP | | + +------+ + Encounter Details +--------+ + + + + | Date | Type | Department | Care Team | Description | +--------+ + + + + | 12/06/ | Orders Only | [facility] | Angel Alcantara MD | Essential | | 2019 | | NEPHROLOGY [place] | [address] [place] | hypertension with | | | | [address] [place] | [address] [place], [place] | goal blood pressure | | | | [address] [place], [place] | [address] | less than 130/80 | | | | [address] | | (Primary Dx); CKD | | | | [phone] | | (chronic kidney | | | | | | disease) stage 3, | | | | | | GFR 30-59 ml/min | | | | | | ([facility]); Persistent | | | | | | proteinuria | +--------+ + + + + Social [...] | | | | | | [facility] | | | | | | [phone] | | | | | | | [...] | | + +--------+ + + | Renal Function Panel | Routin | Essential | Expected: | | | e | hypertension with | 04/07/2019, Expires: | | | | goal blood pressure | 12/07/2019 | | | | less than 130/80 | | | | | CKD (chronic kidney | | | | | disease) stage 3, | | | | | GFR 30-59 ml/min | | | | | ([facility]) Persistent | | | | | proteinuria | | + +--------+ + + | Magnesium | Routin | Essential | Expected: | | | e | hypertension with | 04/07/2019, Expires: | | | | goal blood pressure | 12/07/2019 | | | | less than 130/80 | | | | | CKD (chronic kidney | | | | | disease) stage 3, | | | | | GFR 30-59 ml/min | | | | | ([facility]) Persistent | | | | | proteinuria | | + +--------+ + + | CBC with Differential | Routin | Essential | Expected: | | | e | hypertension with | 04/07/2019, Expires: | | | | goal blood pressure | 12/07/2019 | | | | less than 130/80 | | | | | CKD (chronic kidney | | | | | disease) stage 3, | | | | | GFR 30-59 ml/min | | | | | ([facility]) Persistent | | | | | proteinuria | | + +--------+ + + | Protein/Creatinine Ratio, Urine | Routin | Essential | Expected: | | | e | hypertension with | 04/07/2019, Expires: | | | | goal blood pressure | 12/07/2019 | | | | less than 130/80 | | | | | CKD (chronic kidney | | | | | disease) stage 3, | | | | | GFR 30-59 ml/min | | | | | ([facility]) Persistent | | | | | proteinuria | | + +--------+ + + documented as of this encounter Visit Diagnoses + + | Diagnosis | + + | Essential hypertension with goal blood pressure less than 130/80 - Primary | + + | CKD (chronic kidney disease) stage 3, GFR 30-59 ml/min (HCC) Chronic kidney disease, | | Stage III (moderate) | + + | Persistent proteinuria Proteinuria | + + documented in this encounter"
--- OUTSIDE RECORDS SUMMARY | ~2019-02-04 | XMS | Encounter Summary ---
Demographics + + + | Address | [address] | | | [place] [address] | + + + | Home Phone | | + + + | Preferred Language | Unknown | + + + | Marital Status | | + + + | Evangelical Affiliation | 1013 | + + + | Race | Unknown | + + + | Ethnic Group | Unknown | + + + Author + + + | Author | [facility] | | | and [place] | + + + | Organization | [facility] | | | [...] Team Providers + +------+ + | Care Mill Supervisor Name | Role | Phone | + +------+ + | Darion Cohn DO | PCP | | + +------+ + Encounter Details +--------+ + + + + | Date | Type | Department | Care Team | Description | +--------+ + + + + | 11/30/ | Orders Only | [facility] | Osmin Poole, | Persistent | | 2019 | | [address] | [employer] | proteinuria; Chronic | | | | [place] | | kidney disease, | | | | [address] | | stage IV (severe) | | | | [phone] | | (HCC); Other | | | | | | specified personal | | | | | | risk factors, not | | | | | | elsewhere | | | | | | classified; | | | | | | Hypokalemia | +--------+ + + + + Social [...] | 02/23/ | Office | Cardiology | David Myron Cote, | | | 2018 | Visit | | MD [address] | | | | | | [place] | | | | | | [address] | | | | | | | | +--------+ + + + + | 02/23/ | Procedure | Cardiology | | | | 2018 | visit | | | | +--------+ + + + + | 05/23/ | Procedure | Cardiology | | | | 2019 | visit | | | | +--------+ + + + + documented as of this encounter Procedures + +--------+ + + + | Procedure Name | Priori | Date/Time | Associated Diagnosis | Comments | | | ty | | | | + +--------+ + + + | PROTEIN/CREATININE | Routin | 11/30/2018 | Persistent | Results for this | | RATIO, URINE | e | 15:28 PDT | proteinuria Chronic | procedure are in the | | | | | kidney disease, | results section. | | | | | stage IV (severe) | | | | | | (HCC) Other | | | | | | specified personal | | | | | | risk factors, not | | | | | | elsewhere classified | | + +--------+ + + + | CBC WITH | Routin | 11/30/2018 | Persistent | Results for this | | DIFFERENTIAL | e | 11:10 PDT | proteinuria Chronic | procedure are in the | | | | | kidney disease, | results section. | | | | | stage IV (severe) | | | | | | (HCC) Other | | | | | | specified personal | | | | | | risk factors, not | | | | | | elsewhere classified | | + +--------+ + + + | URIC ACID | Routin | 11/30/2018 | Persistent | Results for this | | | e | 11:10 PDT | proteinuria Chronic | procedure are in the | | | | | kidney disease, | results section. | | | | | stage IV (severe) | | | | | | (HCC) Other | | | | | | specified personal | | | | | | risk factors, not | | | | | | elsewhere classified | | + +--------+ + + + | PARATHYROID HORMONE, | Routin | 11/30/2018 | Persistent | Results for this | | INTACT | e | 11:10 PDT | proteinuria Chronic | procedure are in the | | | | | kidney disease, | results section. | | | | | stage IV (severe) | | | | | | (HCC) Other | | | | | | specified personal | | | | | | risk factors, not | | | | | | elsewhere classified | | + +--------+ + + + | MAGNESIUM | Routin | 11/30/2018 | Persistent | Results for this | | | e | 11:10 PDT | proteinuria Chronic | procedure are in the | | | | | kidney disease, | results section. | | | | | stage IV (severe) | | | | | | (HCC) Other | | | | | | specified personal | | | | | | risk factors, not | | | | | | elsewhere classified | | + +--------+ + + + | RENAL FUNCTION PANEL | Routin | 11/30/2018 | Persistent | Results for this | | | e | 11:10 PDT | proteinuria Chronic | procedure are in the | | | | | kidney disease, | results section. | | | | | stage IV (severe) | | | | | | (HCC) Other | | | | | | specified personal | | | | | | risk factors, not | | | | | | elsewhere classified | | + +--------+ + + + | PROTEIN, URINE, | Routin | 11/30/2018 | | Results for this | | RANDOM | e | 11:03 PDT | | procedure are in the | | | | | | results section. | + +--------+ + + + | CREATININE, URINE, | Routin | 11/30/2018 | | Results for this | | RANDOM | e | 11:03 PDT | | procedure are in the | | | | | | results section. | + +--------+ + + + documented in this encounter Results Protein/Creatinine Ratio, Urine (11/30/2018 15:28 PDT) + + + + + + | Component | Value | Ref Range | Performed | Pathologist | | | | | At | Signature | + + + + + + | PRO/CREA | 0.588Comment: Testing | | REFERENCE | | | RATIO,URINE | performed at [facility];[address] | | LAB | | | | [place] | | [facility] | | | | [address];[place] [address] | | LABORATORY | | + + + + + + + + | Specimen | + + | Urine | + + + + + + + | Performing | Address | City/State/Zipcode | Phone Number | | Organization | | | | + + + + + | REFERENCE LAB | [address] [place] [address] | [place] [address] | [phone] | | [facility] | Bl[address] | | | | LABORATORY | | | | + + + + + | REFERENCE LAB | [address] [place] [address] | [place] [address] | | | [facility] | Blvd[address] | | | | LABORATORY | | | | + + + + + Renal Function Panel (11/30/2018 11:10 PDT) + + + + + + | Component | Value | Ref Range | Performed | Pathologist | | | | | At | Signature | + + + + + + | Na | 142 | 135 - 145 | REFERENCE | | | | | mmol/L | LAB | | | | | | [facility] | | | | | | LABORATORY | | + + + + + + | K | 3.9 | 3.5 - 4.9 | REFERENCE | | | | | mmol/L | LAB | | | | | | [facility] | | | | | | LABORATORY | | + + + + + + | Cl | 105 | 99 - 109 mmol/L | REFERENCE | | | | | | LAB | | | | | | [facility] | | | | | | LABORATORY | | + + + + + + | CO2 | 31 | 23 - 32 mmol/L | REFERENCE | | | | | | LAB | | | | | | [facility] | | | | | | LABORATORY | | + + + + + + | Anion Gap | 10 | 5 - 20 mmol/L | REFERENCE | | | | | | LAB | | | | | | [facility] | | | | | | LABORATORY | | + + + + + + | Glucose | 86 | 65 - 99 mg/dL | REFERENCE | | | | | | LAB | | | | | | [facility] | | | | | | LABORATORY | | + + + + + + | BUN | 22 | 8 - 25 mg/dL | REFERENCE | | | | | | LAB | | | | | | [facility] | | | | | | LABORATORY | | + + + + + + | Creatinine | 1.4 (H) | 0.50 - 1.00 | REFERENCE | | | | | mg/dL | LAB | | | | | | [facility] | | | | | | LABORATORY | | + + + + + + | Calcium | 8.8 | 8.5 - 10.5 | REFERENCE | | | | | mg/dL | LAB | | | | | | [facility] | | | | | | LABORATORY | | + + + + + + | Albumin | 3.5 | 3.3 - 4.8 g/dL | REFERENCE | | | | | | LAB | | | | | | [facility] | | | | | | LABORATORY | | + + + + + + | Phosphorus | 3.5 | 2.3 - 4.8 mg/dL | REFERENCE | | | | | | LAB | | | | | | [facility] | | | | | | LABORATORY | | + + + + + + | Estimated | 36 (L)Comment: GFR <60: | >60 | REFERENCE | | | GFR | CHRONIC KIDNEY DISEASE, | mL/min/1.73m2 | LAB | | | | IF FOUND OVER A 3 MONTH | | [facility] | | | | PERIOD.GFR <15: KIDNEY | | LABORATORY | | | | FAILURE.FOR | | | | | | AMERICANS, MULTIPLY THE | | | | | | CALCULATED GFR BY | | | | | | 1.210.This eGFR is | | | | | | calculated using the | | | | | | MDRD IDMS traceable | | | | | | equation.Testing | | | | | | performed at [facility];[address] | | | | | | [facility] | | | | | | [facility];[place] [address] | | | | | | | | | | + + + + + + + + | Specimen | + + | Blood | + + + + + + + | Performing | Address | City/State/Zipcode | Phone Number | | Organization | | | | + + + + + | REFERENCE LAB | [address] | [place] [address] | [phone] | | [facility] | Blvd[address] | | | | LABORATORY | | | | + + + + + | REFERENCE LAB | [address] | [place] [address] | | | [facility] | Blvd[address] | | | | LABORATORY | | | | + + + + + Magnesium (11/30/2018 11:10 PDT) + + + + + + | Component | Value | Ref Range | Performed | Pathologist | | | | | At | Signature | + + + + + + | Magnesium | 1.9Comment: Testing | 1.7 - 2.4 mg/dL | REFERENCE | | | | performed at [facility];[address] | | LAB | | | | [place] | | [facility] | | | | [address];[place] [address] | | LABORATORY | | + + + + + + + + | Specimen | + + | Blood | + + + + + + + | Performing | Address | City/State/Zipcode | Phone Number | | Organization | | | | + + + + + | REFERENCE LAB | [address] | [place] [address] | [phone] | | [facility] | Blvd[address] | | | | LABORATORY | | | | + + + + + | REFERENCE LAB | [address] | [place] [address] | | | [facility] | Blvd[address] | | | | LABORATORY | | | | + + + + + CBC with Differential (11/30/2018 11:10 PDT) + + + + + + | Component | Value | Ref Range | Performed | Pathologist | | | | | At | Signature | + + + + + + | WBC | 5.86 | 3.80 - 11.00 | REFERENCE | | | | | K/uL | LAB | | | | | | [facility] | | | | | | LABORATORY | | + + + + + + | RBC | 3.59 (L) | 3.70 - 5.10 | REFERENCE | | | | | M/uL | LAB | | | | | | [facility] | | | | | | LABORATORY | | + + + + + + | Hemoglobin | 12.9 | 11.3 - 15.5 | REFERENCE | | | | | g/dL | LAB | | | | | | [facility] | | | | | | LABORATORY | | + + + + + + | Hematocrit | 38.6 | 34.0 - 46.0 % | REFERENCE | | | | | | LAB | | | | | | [facility] | | | | | | LABORATORY | | + + + + + + | MCV | 107.3 (H) | 80.0 - 100.0 fl | REFERENCE | | | | | | LAB | | | | | | [facility] | | | | | | LABORATORY | | + + + + + + | MCH | 35.8 (H) | 27.0 - 34.0 pg | REFERENCE | | | | | | LAB | | | | | | [facility] | | | | | | LABORATORY | | + + + + + + | MCHC | 33.4 | 32.0 - 35.5 | REFERENCE | | | | | g/dL | LAB | | | | | | [facility] | | | | | | LABORATORY | | + + + + + + | RDW-SD | 61.3 (H) | 37 - 53 fl | REFERENCE | | | | | | LAB | | | | | | [facility] | | | | | | LABORATORY | | + + + + + + | Platelet | 135 (L) | 150 - 400 K/uL | REFERENCE | | | Count | | | LAB | | | | | | [facility] | | | | | | LABORATORY | | + + + + + + | MPV | 10.0 | fl | REFERENCE | | | | | | LAB | | | | | | [facility] | | | | | | LABORATORY | | + + + + + + | Diff Type | AUTOMATED | | REFERENCE | | | | | | LAB | | | | | | [facility] | | | | | | LABORATORY | | + + + + + + | % | 68.30 | % | REFERENCE | | | Neutrophils | | | LAB | | | | | | [facility] | | | | | | LABORATORY | | + + + + + + | % | 23.82 | % | REFERENCE | | | Lymphocytes | | | LAB | | | | | | [facility] | | | | | | LABORATORY | | + + + + + + | Monocyte % | 6.43 | % | REFERENCE | | | | | | LAB | | | | | | [facility] | | | | | | LABORATORY | | + + + + + + | Eosinophils | 0.73 | % | REFERENCE | | | % | | | LAB | | | | | | [facility] | | | | | | LABORATORY | | + + + + + + | Basophils % | 0.72 | % | REFERENCE | | | | | | LAB | | | | | | [facility] | | | | | | LABORATORY | | + + + + + + | Neutrophils | 4.00 | 1.90 - 7.40 | REFERENCE | | | , Absolute | | K/uL | LAB | | | | | | [facility] | | | | | | LABORATORY | | + + + + + + | Absolute | 1.40 | 1.00 - 3.90 | REFERENCE | | | Lymphocytes | | K/uL | LAB | | | | | | [facility] | | | | | | LABORATORY | | + + + + + + | Absolute | 0.38 | 0.00 - 0.80 | REFERENCE | | | Monocytes | | K/uL | LAB | | | | | | [facility] | | | | | | LABORATORY | | + + + + + + | Eosinophils | 0.04 | 0.00 - 0.50 | REFERENCE | | | , Absolute | | K/uL | LAB | | | | | | [facility] | | | | | | LABORATORY | | + + + + + + | Basophils, | 0.04 | 0.00 - 0.10 | REFERENCE | | | Absolute | | K/uL | LAB | | | | | | [facility] | | | | | | LABORATORY | | + + + + + + | RBC | 2+Comment: MACROTesting | | REFERENCE | | | Morphology | performed at [facility];[address] | | LAB | | | | [place] | | [facility] | | | | [address];[place] [address] | | LABORATORY | | | | | | | | + + + + + + + + | Specimen | + + | Blood | + + + + + + + | Performing | Address | City/State/Zipcode | Phone Number | | Organization | | | | + + + + + | REFERENCE LAB | [address] | [place] [address] | [phone] | | [facility] | Blvd[address] | | | | LABORATORY | | | | + + + + + | REFERENCE LAB | [address] | [place] [address] | | | [facility] | Blvd[address] | | | | LABORATORY | | | | + + + + + Parathyroid Hormone, Intact (11/30/2018 11:10 PDT) + + + + + + | Component | Value | Ref Range | Performed | Pathologist | | | | | At | Signature | + + + + + + | PTH Intact | 92.2 (H)Comment: Testing | 12 - 88 pg/mL | REFERENCE | | | | performed at [facility];[address] | | LAB | | | | [facility] | | [facility] | | | | [address];[place] [address] | | LABORATORY | | + + + + + + + + | Specimen | + + | Blood | + + + + + + + | Performing | Address | City/State/Zipcode | Phone Number | | Organization | | | | + + + + + | REFERENCE LAB | [address] [place] [address] | [place] [address] | [phone] | | [facility] | Blvd[address] | | | | LABORATORY | | | | + + + + + | REFERENCE LAB | [address] [place] [address] | [place] [address] | | | [facility] | Blvd[address] | | | | LABORATORY | | | | + + + + + Uric Acid (11/30/2018 11:10 PDT) + + + + + + | Component | Value | Ref Range | Performed | Pathologist | | | | | At | Signature | + + + + + + | Uric Acid | 6.7Comment: Testing | 2.2 - 7.1 mg/dL | REFERENCE | | | | performed at [facility];[address] | | LAB | | | | [place] | | [facility] | | | | Bl[address];[place] [address] | | LABORATORY | | + + + + + + + + | Specimen | + + | Blood | + + + + + + + | Performing | Address | City/State/Zipcode | Phone Number | | Organization | | | | + + + + + | REFERENCE LAB | [address] [place] [address] | [place] [address] | [phone] | | [facility] | Blvd[address] | | | | LABORATORY | | | | + + + + + | REFERENCE LAB | [address] [place] [address] | [place] [address] | | | [facility] | Blvd[address] | | | | LABORATORY | | | | + + + + + Protein, Urine, Random (11/30/2018 11:03 PDT) + + + + + + | Component | Value | Ref Range | Performed | Pathologist | | | | | At | Signature | + + + + + + | Protein, | 10Comment: NO NORMAL | mg/dL | REFERENCE | | | Urine | RANGE ESTABLISHEDTesting | | LAB | | | | performed at [facility];[address] | | [facility] | | | | [place] | | LABORATORY | | | | [address];[place] [address] | | | | | | | | | | + + + + + + + + | Specimen | + + | | + + + + + + + | Performing | Address | City/State/Zipcode | Phone Number | | Organization | | | | + + + + + | REFERENCE LAB | [address] | [place] [address] | [phone] | | [facility] | Blvd. | | | | LABORATORY | | | | + + + + + | REFERENCE LAB | [address] [place] [address] | [place] [address] | | | [facility] | Blvd. | | | | LABORATORY | | | | + + + + + Creatinine, Urine, Random (11/30/2018 11:03 PDT) + + + + + + | Component | Value | Ref Range | Performed | Pathologist | | | | | At | Signature | + + + + + + | Creatinine, | 17.0Comment: NO NORMAL | mg/dL | REFERENCE | | | random | RANGE ESTABLISHEDTesting | | LAB | | | urine | performed at [facility];[address] | | [facility] | | | | [place] | | LABORATORY | | | | Blvd;[place] [address] | | | | | | | | | | + + + + + + + + | Specimen | + + | | + + + + + + + | Performing | Address | City/State/Zipcode | Phone Number | | Organization | | | | + + + + + | REFERENCE LAB | [address] | [place] [address] | [phone] | | [facility] | Blvd[address] | | | | LABORATORY | | | | + + + + + | REFERENCE LAB | [address] | [place] [address] | | | [facility] | Blvd[address] | | | | LABORATORY | | | | + + + + + documented in this encounter Visit Diagnoses + + | Diagnosis | + + | Persistent proteinuria Proteinuria | + + | Chronic kidney disease, stage IV (severe) (HCC) Chronic kidney disease, Stage IV | | (severe) | + + | Other specified personal risk factors, not elsewhere classified | + + | Hypokalemia Hypopotassemia | + + documented in this encounter"
--- OUTSIDE RECORDS SUMMARY | ~2019-02-04 | XMS | Encounter Summary ---
Demographics + + + | Address | [address] | | | [place] [address] | + + + | Home Phone | | + + + | Preferred Language | Unknown | + + + | Marital Status | | + + + | Tenriism Affiliation | 1013 | + + + | Race | Unknown | + + + | Ethnic Group | Unknown | + + + Author + + + | Author | [email or web address] [employer] (Historical as of | | | 11-19-18) | + + + | Organization | [facility] [employer] (Historical as of | | | 11-19-18) [...] Team Providers + +------+ + | Care Diesel Engine Mechanic Name | Role | Phone | + +------+ + | Darion Cohn MD | PCP | | + +------+ + Reason for Visit +--------+ + | Reason | Comments | +--------+ + | Other | ED report and patient note 10/19/18 | +--------+ + Encounter Details +--------+ + + + + | Date | Type | Department | Care Team | Description | +--------+ + + + + | 11/15/ | Documentati | [facility] | Richard, | Vimal (ED report and | | 2019 | on Only | [address] | [address] | patient note | | | | [address] | | 10/19/18) | | | | [place] [address] | | | | | | [phone] | | | +--------+ + + + [...] Documentati | Cardiology | | | | 2020 | on Only | | | | +--------+ + + + + as of this encounter Procedures + +--------+ + + + | Procedure Name | Priori | Date/Time | Associated Diagnosis | Comments | | | ty | | | | + +--------+ + + + | BRAIN NATRIURETIC | Routin | 10/19/2018 | | Results for this | | PEPTIDE | e | 12:28 PM | | procedure are in the | | | | PDT | | results section. | + +--------+ + + + | COMPREHENSIVE | Routin | 10/19/2018 | | Results for this | | METABOLIC PANEL | e | 12:28 PM | | procedure are in the | | | | PDT | | results section. | + +--------+ + + + | CBC W/AUTO DIFF | Routin | 09/16/2018 | | Results for this | | (REFLEX TO MANUAL) | e | 9:39 AM | | procedure are in the | | | | PDT | | results section. | + +--------+ + + + | BRAIN NATRIURETIC | Routin | 09/16/2018 | | Results for this | | PEPTIDE | e | 9:39 AM | | procedure are in the | | | | PDT | | results section. | + +--------+ + + + | RENAL FUNCTION PANEL | Routin | 09/16/2018 | | Results for this | | | e | 9:39 AM | | procedure are in the | | | | PDT | | results section. | + +--------+ + + + | COMPREHENSIVE | Routin | 09/16/2018 | | Results for this | | METABOLIC PANEL | e | 9:39 AM | | procedure are in the | | | | PDT | | results section. | + +--------+ + + + | TROPONIN I | Routin | 09/15/2018 | | Results for this | | | e | 6:15 AM | | procedure are in the | | | | PDT | | results section. | + +--------+ + + + | CBC W/AUTO DIFF | Routin | 09/15/2018 | | Results for this | | (REFLEX TO MANUAL) | e | 6:15 AM | | procedure are in the | | | | PDT | | results section. | + +--------+ + + + | URINE CULTURE | Routin | 09/15/2018 | | Results for this | | | e | 6:15 AM | | procedure are in the | | | | PDT | | results section. | + +--------+ + + + in this encounter Results Comprehensive metabolic panel (10/19/2018 12:28 PM) + + + + + | Component | Value | Ref Range | Performed At | + + + + + | GLUCOSE | 132 (A) | 84 - 110 mg/dL | | + + + + + | BUN | 29 (A) | 9.8 - 20.1 mg/dL | | + + + + + | CREATININE | 1.40 (A) | 0.44 - 1.03 mg/dL | | + + + + + | BUN/CREAT | | | | + + + + + | CALCIUM | 9.3 | 8.4 - 10.8 mg/dL | | + + + + + | TOTAL PROTEIN | 66.9 (A) | 6.0 - 8.0 g/dL | | + + + + + | Albumin | 3.6 | 3.4 - 4.8 | | + + + + + | GLOBULIN | 3.3 | 2.3 - 3.5 | | + + + + + | A/G | 1.1 | 1.10 - 1.80 | | + + + + + | TBIL | 0.6 | 0.3 - 1.2 mg/dL | | + + + + + | ALK PHOS | 114 | 40 - 150 | | + + + + + | ALT | 55 | 0 - 55 U/L | | + + + + + | AST | 66 (A) | 5 - 34 U/L | | + + + + + | SODIUM | 142 | 136 - 145 mmol/L | | + + + + + | POTASSIUM | 2.9 (A) | 3.5 - 4.5 mmol/L | | + + + + + | CHLORIDE | 108 (A) | 98 - 107 mmol/L | | + + + + + | CO2 | 23 | 22 - 32 mmol/L | | + + + + + | ANION GAP AGAP | 11.0 | 5 - 12 mmol/L | | + + + + + | EGFR | 36 (A) | 60 - 140 mg/dL | | + + + + + + + | Specimen | + + | Blood | + + Brain natriuretic peptide (10/19/2018 12:28 PM) + +---------+ + + | Component | Value | Ref Range | Performed At | + +---------+ + + | BRAIN NATRIURETIC | 995 (A) | 0 - 100 pg/mL | | | PEPTIDE | | | | + +---------+ + + + + | Specimen | + + | Blood | + + Brain natriuretic peptide (09/16/2018 9:39 AM) + + + + + | Component | Value | Ref Range | Performed At | + + + + + | BRAIN NATRIURETIC | 1,372 (A) | 0 - 100 pg/mL | | | PEPTIDE | | | | + + + + + + + | Specimen | + + | Blood | + + Renal function panel (09/16/2018 9:39 AM) + +---------+ + + | Component | Value | Ref Range | Performed At | + +---------+ + + | GLUCOSE | 122 (A) | 84 - 110 mg/dL | | + +---------+ + + | BUN | 19 | 9.8 - 20.1 mg/dL | | + +---------+ + + | CREATININE | 0.98 | 0.44 - 1.03 mg/dL | | + +---------+ + + | PHOSPHORUS | 2.9 | 2.3 - 4.7 mg/dL | | + +---------+ + + | Albumin | 3.2 (A) | 3.4 - 4.8 | | + +---------+ + + | SODIUM | 142 | 136 - 145 mmol/L | | + +---------+ + + | POTASSIUM | 3.8 | 3.5 - 4.5 mmol/L | | + +---------+ + + | CHLORIDE | 109 (A) | 98 - 107 mmol/L | | + +---------+ + + | CO2 | 23 | 22 - 32 mmol/L | | + +---------+ + + | ANION GAP AGAP | 10.0 | 5 - 12 mmol/L | | + +---------+ + + | GFR MDRD Non Af Amer | | | | + +---------+ + + | Phosphorus,Inorganic | | | | + +---------+ + + | BUN/CREAT | | | | + +---------+ + + | CALCIUM | 8.9 | 8.4 - 10.8 mg/dL | | + +---------+ + + | EGFR | 54 (A) | 60 - 140 mg/dL | | + +---------+ + + + + | Specimen | + + | Blood | + + Comprehensive metabolic panel (09/16/2018 9:39 AM) + + + + + | Component | Value | Ref Range | Performed At | + + + + + | GLUCOSE | 110 | 84 - 110 mg/dL | | + + + + + | BUN | 24 (A) | 9.8 - 20.1 mg/dL | | + + + + + | CREATININE | 1.08 (A) | 0.44 - 1.03 mg/dL | | + + + + + | BUN/CREAT | | | | + + + + + | CALCIUM | 8.3 (A) | 8.4 - 10.8 mg/dL | | + + + + + | TOTAL PROTEIN | 5.4 (A) | 6.0 - 8.0 g/dL | | + + + + + | Albumin | 2.8 (A) | 3.4 - 4.8 | | + + + + + | GLOBULIN | 2.6 | 2.3 - 3.5 | | + + + + + | A/G | 1.1 | 1.10 - 1.80 | | + + + + + | TBIL | 0.7 | 0.3 - 1.2 mg/dL | | + + + + + | ALK PHOS | 89 | 40 - 150 | | + + + + + | ALT | 56 (A) | 0 - 55 U/L | | + + + + + | AST | 64 (A) | 5 - 34 U/L | | + + + + + | SODIUM | 143 | 136 - 145 mmol/L | | + + + + + | POTASSIUM | 3.9 | 3.5 - 4.5 mmol/L | | + + + + + | CHLORIDE | 110 (A) | 98 - 107 mmol/L | | + + + + + | CO2 | 26 | 22 - 32 mmol/L | | + + + + + | ANION GAP AGAP | 7.0 | 5 - 12 mmol/L | | + + + + + | EGFR | 48 (A) | 60 - 140 mg/dL | | + + + + + + + | Specimen | + + | Blood | + + CBC W/Auto Diff (Reflex to Manual) (09/16/2018 9:39 AM) + + + + + | Component | Value | Ref Range | Performed At | + + + + + | WBC | 6.8 | 4.5 - 11.0 10^3/mL | | + + + + + | RBC | 3.3 (A) | 4.2 - 5.4 10^6/ L | | + + + + + | HGB | 11.6 | 11.5 - 15.5 g/dL | | + + + + + | HCT | 34.1 (A) | 36.0 - 46.0 % | | + + + + + | MCV | 102.9 (A) | 80 - 100 fL | | + + + + + | MCH | 35.2 (A) | 25.0 - 34.0 pg | | + + + + + | MCHC | 34.2 | 32.0 - 36.0 g/dL | | + + + + + | PLT | 123 (A) | 150 - 450 K/ L | | + + + + + | RDW SD | 16.9 (A) | 11.5 - 15.5 % | | + + + + + | MPV | | fL | | + + + + + | DIFF TYPE | | | | + + + + + | NEUTROPHILS | 78.1 (A) | 40 - 70 % | | + + + + + | LYMPHOCYTES | 14.1 (A) | 25 - 45 % | | + + + + + | MONOCYTES | 6.2 | 0 - 10 % | | + + + + + | EOSINOPHILS | 1.1 | 0 - 3 % | | + + + + + | BASOPHILS | 0.5 | 0 - 3 % | | + + + + + | NEUTROPHILS ABS | 5.3 | 1.8 - 7.7 / L | | + + + + + | LYMPHOCYTES ABS | 1.0 | 1.0 - 4.8 / L | | + + + + + | MONOCYTES ABS | 0.4 | 0.0 - 0.8 / L | | + + + + + | EOSINOPHILS ABS | 0.1 | 0.0 - 0.45 / L | | + + + + + | BASOPHILS ABS | 0.0 | 0.0 - 0.20 / L | | + + + + + + + | Specimen | + + | Blood | + + CBC W/Auto Diff (Reflex to Manual) (09/15/2018 6:15 AM) + + + + + | Component | Value | Ref Range | Performed At | + + + + + | WBC | 5.5 | 4.5 - 11.0 10^3/mL | | + + + + + | RBC | 2.2 (A) | 4.2 - 5.4 10^6/ L | | + + + + + | HGB | 7.8 (A) | 11.5 - 15.5 g/dL | | + + + + + | HCT | 23.5 (A) | 36.0 - 46.0 % | | + + + + + | MCV | 105.9 (A) | 80 - 100 fL | | + + + + + | MCH | 35.3 (A) | 25.0 - 34.0 pg | | + + + + + | MCHC | 33.4 | 32.0 - 36.0 g/dL | | + + + + + | PLT | 112 (A) | 150 - 450 K/ L | | + + + + + | RDW SD | 16.3 (A) | 11.5 - 15.5 % | | + + + + + | MPV | | fL | | + + + + + | DIFF TYPE | | | | + + + + + | NEUTROPHILS | 71.5 (A) | 40 - 70 % | | + + + + + | LYMPHOCYTES | 19.7 (A) | 25 - 45 % | | + + + + + | MONOCYTES | 19.7 (A) | 0 - 10 % | | + + + + + | EOSINOPHILS | 1.5 | 0 - 3 % | | + + + + + | BASOPHILS | 1.2 | 0 - 3 % | | + + + + + | NEUTROPHILS ABS | 3.9 | 1.8 - 7.7 / L | | + + + + + | LYMPHOCYTES ABS | 3.9 | 1.0 - 4.8 / L | | + + + + + | MONOCYTES ABS | 0.3 | 0.0 - 0.8 / L | | + + + + + | EOSINOPHILS ABS | 0.1 | 0.0 - 0.45 / L | | + + + + + | BASOPHILS ABS | 0.1 | 0.0 - 0.20 / L | | + + + + + + + | Specimen | + + | Blood | + + Troponin I (09/15/2018 6:15 AM) + + + + + | Component | Value | Ref Range | Performed At | + + + + + | TROPONIN I | 0.04 (A) | 0.0 - 0.03 ng/mL | | + + + + + + + | Specimen | + + | Blood | + + Urine culture (09/15/2018 6:15 AM) + + + + + | Component | Value | Ref Range | Performed At | + + + + + | Specimen Description | Urine | | | + + + + + | CULTURE | Positive | | | + + + + + | REPORT STATUS | Final | | | + + + + + + + | Specimen | + + | Urine | + + + + +--------+ + | Organism | Antibiotic | Method | Susceptibility | + + +--------+ + | Enterobacter cloacae | Trimethoprim + | | Susceptible | | | Sulfamethoxazole | | | + + +--------+ + | Enterobacter cloacae | Amoxicillin + | | Resistant | | | Clavulanate | | | + + +--------+ + | Enterobacter cloacae | Cefazolin | | Resistant | + + +--------+ + | Enterobacter cloacae | Ceftriaxone | | Susceptible | + + +--------+ + | Enterobacter cloacae | Cefepime | | Susceptible | + + +--------+ + | Enterobacter cloacae | Ciprofloxacin | | Susceptible | + + +--------+ + | Enterobacter cloacae | Gentamicin | | Susceptible | + + +--------+ + | Enterobacter cloacae | Imipenem/Cilastatin | | Susceptible | + + +--------+ + | Enterobacter cloacae | Nitrofurantoin | | Susceptible | + + +--------+ + | Enterobacter cloacae | Levofloxacin | | Susceptible | + + +--------+ + in this encounter Visit Diagnoses Not on filein this encounter"
--- OUTSIDE RECORDS SUMMARY | ~2019-02-04 | XMS | Encounter Summary ---
Demographics + + + | Address | [address] | | | [place] [address] | + + + | Home Phone | | + + + | Preferred Language | Unknown | + + + | Marital Status | | + + + | Roman Catholic Affiliation | 1013 | + + + | Race | Unknown | + + + | Ethnic Group | Unknown | + + + Author + + + | Author | [facility] | | | and [place] | + + + | Organization | [facility] | | | [...] Team Providers + +------+ + | Care Straight Knife Machine Cutter Name | Role | Phone | + +------+ + | Darion Cohn DO | PCP | | + +------+ + Encounter Details +--------+---------+ + + + | Date | Type | Department | Care Team | Description | +--------+---------+ + + + | 11/22/ | Office | [facility] | Myron Hernandez, | Persistent atrial | | 2018 | Visit | CARDIOLOGY [place] | [address] | fibrillation (HCC); | | | | [address] | [place], [place] | Orthostatic | | | | [place], [place] | [address] | hypotension; | | | | [address] | | Hypoxia; Essential | | | | [phone] | | hypertension with | | | [...] in this encounter Patient Instructions Patient Instructions Mryon Hernandez MD - 11/22/2018 10:00 PDTStart midodrine [...] Ashley : 1935: AGE: 83 y.o. (home) [phone] (work): PRIMARY CARE: Darion Cohn DO Requesting [...] 10 mg daily Jacklyn Goins Medic al Tax Compliance Representative - 11/22/2018 1000 PDTAncillary MA Note- Electrophysiology [...] [place] | | | | | | [address] | | | | | | | [...]
--- OUTSIDE RECORDS SUMMARY | ~2019-02-04 | XMS | Encounter Summary ---
Demographics + + + | Address | [address] | | | [place] [address] | + + + | Home Phone | | + + + | Preferred Language | Unknown | + + + | Marital Status | Single | + + + | Mormonism Affiliation | Unknown | + + + | Race | Unknown | + + + | Ethnic Group | Other Race | + + + Author + + + | Author | [facility] | + + + | Organization | [facility] | + + + | Address | Unknown | + + + | Phone | Unavailable | + + + Support + + +---------+ + | Name | Relationship | Address | Phone | + + +---------+ + | None None | ECON | Unknown | Unavailable | + + +---------+ + Care Team Providers + +------+ + | Care Chief Scientist Name | Role | Phone | + +------+ + PCP | Unavailable | + +------+ + Encounter Details +--------+ + + + + | Date | Type | Department | Care Team | Description | +--------+ + + + + | 12/21/ | Ancillary | Registration [id number] | | | | 2006 | Registratio | [facility] | | | | | n | [address] Mailcode: [address] | | | | | | [place], [place] | | | | | | [address] | | | | | | [phone] | | | +--------+ + + + + Social History + +-------+ +--------+------+ | Tobacco Use | Types | Packs/Day | Years | Date | | | | | Used | | + +-------+ +--------+------+ | Never Assessed | | | | | + +-------+ +--------+------+ + + + | Sex Assigned at [...] as of this encounter Plan of Treatment Not on filedocumented as of this encounter Visit Diagnoses Not on filedocumented in this encounter"
--- OUTSIDE RECORDS SUMMARY | ~2019-02-04 | XMS | Encounter Summary ---
Demographics + + + | Address | [address] | | | [place] [address] | + + + | Home Phone | | + + + | Preferred Language | Unknown | + + + | Marital Status | Single | + + + | Yarsanism Affiliation | Unknown | + + + | Race | Unknown | + + + | Ethnic Group | Other Race | + + + Author + + + | Author | [facility] | + + + | Organization | [facility] | + + + | Address | Unknown | + + + | Phone | Unavailable | + + + Support + + +---------+ + | Name | Relationship | Address | Phone | + + +---------+ + | None None | ECON | Unknown | Unavailable | + + +---------+ + Care Team Providers + +------+ + | Care Industrial Automation Specialist Name | Role | Phone | + +------+ + PCP | Unavailable | + +------+ + Encounter Details +--------+ + + + + | Date | Type | Department | Care Team | Description | +--------+ + + + + | 12/20/ | Results | Registration [id number] | Other, Faculty | | | 2006 | Only | [address] | [phone] | | | | | Rd Mailcode: [address] | | | | | | [place], [place] | | | | | | [address] | | | | | | [phone] | | | +--------+ + + + [...] as of this encounter Plan of Treatment + +------+--------+ + + | Name | Type | Priori | Associated Diagnoses | Date/Time | | | | ty | | | + +------+--------+ + + | TRANSTHORACIC | ECG | Routin | | 12/20/2006 8:00 AM | | ECHOCARDIOGRAM, | | e | | PDT | | ADULT | | | | | + +------+--------+ + + documented as of this encounter Visit Diagnoses Not on filedocumented in this encounter"
--- OUTSIDE RECORDS SUMMARY | ~2019-02-04 | XMS | Encounter Summary ---
Demographics + + + | Address | [address] | | | [place] [address] | + + + | Home Phone | | + + + | Preferred Language | Unknown | + + + | Marital Status | | + + + | Methodist Affiliation | 1013 | + + + | Race | Unknown | + + + | Ethnic Group | Unknown | + + + Author + + + | Author | [facility] [employer] (Historical as of | | | 11-19-18) | + + + | Organization | [facility] (Historical as of | | | 11-19-18) [...] Team Providers + +------+ + | Care Oil Rigger Name | Role | Phone | + [...] 10/19/18) | | | | [place] [address] | | | | | | [phone] | | | +--------+ + + + [...]
--- OUTSIDE RECORDS SUMMARY | ~2019-02-04 | XMS | Encounter Summary ---
Demographics + + + | Address | [address] | | | [place] [address] | + + + | Home Phone | | + + + | Preferred Language | Unknown | + + + | Marital Status | | + + + | Rastafari Affiliation | 1013 | + + + | Race | Unknown | + + + | Ethnic Group | Unknown | + + + Author + + + | Author | [facility] | | | and [place] | + + + | Organization | [facility] | | | and [...] Team Providers + +------+ + | Care Wood Stainer Name | Role | Phone | + +------+ + | Darion Cohn DO | PCP | | + +------+ + Encounter Details +--------+---------+ + + + | Date | Type | Department | Care Team | Description | +--------+---------+ + + + | 12/06/ | Office | [facility] | Angel Alcantara MD | CKD (chronic kidney | | 2019 | Visit | NEPHROLOGY [place] | [address] [place] | disease) stage 3, | | | | [address] [place] | [address] [place], [place] | GFR 30-59 ml/min | | | | [address] [place], [place] | [address] | (HCC) (Primary Dx); | | | | [address] | | Persistent | | | | [phone] | | proteinuria; | | | | [...] will have RFP, Magnesium, CBC, Urine total uuzenwu-ib-ucdalwkayk ratio done before s he comes back [...] the d ischarge summary. She lives in [place], [place] with her in their own home, 60+ years, daughter lives in [place], [place]. 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 Ashlye is a 82 y.o. female patient with [...] will have RFP, Magnesium, CBC, Urine total rucnnup-dd-yrrtndirgf ratio done before s he comes back in 4 months. I spent 15 minutes of this 25-minute visit in education, counseling and answering all of he r questions to her satisfaction. Thank you Dr. Chon for the opportunity to see this patient [...] | | | | | [place] | | | | | | [address] | | | | | | | [...] kidney disease) stage 3, GFR 30-59 ml/min ([facility]) - Primary Chronic kidney | | disease, [...]
--- OUTSIDE RECORDS SUMMARY | ~2019-02-04 | XMS | Encounter Summary ---
Demographics + + + | Address | [address] | | | [place] [address] | + + + | Home Phone | | + + + | Preferred Language | Unknown | + + + | Marital Status | | + + + | Christianity Affiliation | 1013 | + + + | Race | Unknown | + + + | Ethnic Group | Unknown | + + + Author + + + | Author | [facility] (Historical as of | | | 11-19-18) | + + + | Organization | [facility] (Historical as of | | | 11-19-18) [...] Team Providers + +------+ + | Care Traffic I Manager Name | Role | Phone | + [...] | | | | | [place] [address] | | | | | | [phone] | | | +--------+ + + + [...]
--- OUTSIDE RECORDS SUMMARY | ~2019-02-04 | XMS | Encounter Summary ---
Demographics + + + | Address | [address] | | | [place] [address] | + + + | Home Phone | | + + + | Preferred Language | Unknown | + + + | Marital Status | | + + + | Holiness Affiliation | 1013 | + + + | Race | Unknown | + + + | Ethnic Group | Unknown | + + + Author + + + | Author | [facility] | | | and [place] | + + + | Organization | [facility] | | | and [...] Team Providers + +------+ + | Care Pain Management Nurse Name | Role | Phone | + [...] 2019 | | [address] | Director [employer] | proteinuria; Chronic | | | | [place] | | kidney disease, | | | | [address] | | stage IV (severe) | | | | [phone] | | (HCC); Other | | | [...] [place] | | | | | | [address] | | | | | | | [...] | | | RATIO,URINE | performed at [facility];[address] | | LAB | | | | [place] | | [facility] | | | | [address];[place] [address] | | LABORATORY | | + + + + + + + + | Specimen | + + | Urine | + + + + + + + | Performing | Address | City/State/Zipcode | Phone Number | | Organization | | | | + + + + + | REFERENCE LAB | [address] [place] [address] | [place] [address] | [phone] | | [facility] | Bl[address] | | | | LABORATORY | | | | + + + + + | REFERENCE LAB | [address] [place] [address] | [place] [address] | | | [facility] | [address] | [...] | | | | | performed at [facility];[address] | | | | | | [facility] | | | | | | [facility];[place] [address] | | | | | | | | | | + + + + + + + + | Specimen | + + | Blood | + + + + + + + | Performing | Address | City/State/Zipcode | Phone Number | | Organization | | | | + + + + + | REFERENCE LAB | [address] | [place] [address] | [phone] | | [facility] | Bl[address] | | | | LABORATORY | | | | + + + + + | REFERENCE LAB | [address] | [place] [address] | | | [facility] | [address] | [...] | | LAB | | | | [place] | | [facility] | | | | Bl[address];[place] [address] | | LABORATORY | | + + + + + + + + | Specimen | + + | Blood | + + + + + + + | Performing | Address | City/State/Zipcode | Phone Number | | Organization | | | | + + + + + | REFERENCE LAB | [address] | [place] [address] | [phone] | | [facility] | Bl[address] | | | | LABORATORY | | | | + + + + + | REFERENCE LAB | [address] | [place] [address] | | | [facility] | [address] | [...] | | | Morphology | performed at [facility];[address] | | LAB | | | | [place] | | [facility] | | | | [address];[place] [address] | | LABORATORY | | | | | | | | + + + + + + + + | Specimen | + + | Blood | + + + + + + + | Performing | Address | City/State/Zipcode | Phone Number | | Organization | | | | + + + + + | REFERENCE LAB | [address] | [place] [address] | [phone] | | [facility] | Bl[address] | | | | LABORATORY | | | | + + + + + | REFERENCE LAB | [address] | [place] [address] | | | [facility] | [address] | [...] REFERENCE | | | | performed at [facility];[address] | | LAB | | | | [facility] | | [facility] | | | | [address];[place] [address] | | LABORATORY | | + + + + + + + + | Specimen | + + | Blood | + + + + + + + | Performing | Address | City/State/Zipcode | Phone Number | | Organization | | | | + + + + + | REFERENCE LAB | [address] [place] [address] | [place] [address] | [phone] | | [facility] | Bl[address] | | | | LABORATORY | | | | + + + + + | REFERENCE LAB | [address] [place] [address] | [place] [address] | | | [facility] | Bl[address] | [...] REFERENCE | | | | performed at [facility];[address] | | LAB | | | | [place] | | [facility] | | | | Blvd;[place] [address] | | LABORATORY | | + + + + + + + + | Specimen | + + | Blood | + + + + + + + | Performing | Address | City/State/Zipcode | Phone Number | | Organization | | | | + + + + + | [facility] | [address] [place] [address] | [place] [address] | [phone] | | [facility] | Blvd. | | | | LABORATORY | | | | + + + + + | [facility] | [address] [place] [address] | [place] [address] | | | [facility] | Blvd. | [...] LAB | | | | performed at [facility];[address] | | [facility] | | | | [address] | | LABORATORY | | | | Blvd;[place] [address] | | | | | | | | | | + + + + + + + + | Specimen | + + | | + + + + + + + | Performing | Address | City/State/Zipcode | Phone Number | | Organization | | | | + + + + + | [facility] | [address] [facility] | [place] [address] | [phone] | | [facility] | Blvd. | | | | LABORATORY | | | | + + + + + | [facility] | [address] [place] [address] | [place] [address] | | | [facility] | Blvd. | | | | LABORATORY [...] | | | urine | performed at [facility];[address] | | [facility] | | | | [place] | | LABORATORY | | | | [place]vd;[place] [address] | | | | | | | | | | + + + + + + + + | Specimen | + + | | + + + + + + + | Performing | Address | City/State/Zipcode | Phone Number | | Organization | | | | + + + + + | [facility] | [address] [facility] | [place] [address] | [phone] | | [facility] | Blvd. | | | | LABORATORY | | | | + + + + + | [facility] | [address] | [place] [address] | | | [facility] | Blvd. | [...]
--- OUTSIDE RECORDS SUMMARY | ~2019-02-04 | XMS | Encounter Summary ---
Demographics + + + | Address | [address] | | | [place] [address] | + + + | Home Phone | | + + + | Preferred Language | Unknown | + + + | Marital Status | | + + + | Christian Affiliation | 1013 | + + + | Race | Unknown | + + + | Ethnic Group | Unknown | + + + Author + + + | Author | [facility] | | | and [place] | + + + | Organization | [facility] | | [...] Team Providers + +------+ + | Care Tax Senior Associate Name | Role | Phone | + +------+ + | Darion Cohn DO | PCP | | + +------+ + Encounter Details +--------+ + + + + | Date | Type | Department | Care Team | Description | +--------+ + + + + | 12/06/ | Orders Only | [facility] | Angel Alcantara MD | Essential | | 2019 | | NEPHROLOGY [place] | [address] [place] | hypertension with | | | | [address] [place] | [address] [place], [place] | goal blood pressure | | | | [address] [place], [place] | [address] | less than 130/80 | | | | [address] | | (Primary Dx); CKD | | | | [phone] | | (chronic kidney | | | | | | disease) stage 3, | | | | | | GFR 30-59 ml/min | | | | | | ([facility]); Persistent | | | | | | [...] | | | | | | [facility] | | | | | | [id number] | | | | | | | [...] 30-59 ml/min | | | | | ([facility]) Persistent | | | | | proteinuria [...] 30-59 ml/min | | | | | ([facility]) Persistent | | | | | proteinuria [...] 30-59 ml/min | | | | | ([facility]) Persistent | | | | | proteinuria [...] 30-59 ml/min | | | | | ([facility]) Persistent | | | | | proteinuria [...]
--- OUTSIDE RECORDS SUMMARY | ~2019-02-04 | XMS | Clinical Summary ---
Demographics + + + | Address | [address] | | | [place] [address] | + + + | Home Phone | | + + + | Preferred Language | Unknown | + + + | Marital Status | Single | + + + | Mandaen Affiliation | Unknown | + + + | Race | Unknown | + + + | Ethnic Group | Other Race | + + + Author + + + | Author | NON REVENUE LOCATIONS | + + + | Organization | NON REVENUE LOCATIONS | + + + | Address | Unknown | + + + | Phone | Unavailable | + + + Support + + +---------+ + | Name | Relationship | Address | Phone | + + +---------+ + | None None | ECON | Unknown | Unavailable | + + +---------+ + Care Team Providers + +------+ + | Care Department Store Door Greeter Name | Role | Phone | + +------+ + PCP | Unavailable | + +------+ + Source Comments DERRICK is fully live on both [facility] and [facility] Allergies Not on File Medications Not on file Active Problems Not on file Social History + +-------+ +--------+------+ | Tobacco [...] recent travel history available. | + + Last Filed Vital Signs Not on file Plan of Treatment + + + + + | Health Maintenance | Due Date | Last Done | Comments | + + + + + | Pneumococcal | | | | | vaccination (1 of 2 | 9 | | | | - PCV13) | | | | + + + + + | Influenza (Flu) | | | | | vaccination (#1) | 9 | | | + + + + + Results Not on filefrom Last 3 Months Insurance + +--------+ +--------+ + +--------+ | Payer | Benefi | Subscriber | Effect | Phone | Address | Type | | | t Plan | ID | valerio | | | | | | / | | Dates | | | | | | Group | | | | | | + +--------+ +--------+ + +--------+ | MEDICARE | MEDICA | xxxxxxxxxx | 09/03/18 | [id number] | [address] | Medica | | | RE A & | | 99-Pre | 1 | [id number] | re | | | B | | sent | | [place] | | | | | | | | [address] | | + +--------+ +--------+ + +--------+ | [place] | BLUE | xxxxxxxxx | 04/07/18 | [phone] | [address] | PPO | | | CROSS | | 85-Pre | 8 | [id number] | | | | [place] | | sent | | [place], | | | | [place] | | | | [place] [address] | | + +--------+ +--------+ + +--------+ + +--------+ +--------+ + + | Guarantor Name | Accoun | Relation to | Date | Phone | Billing Address | | | t Type | Patient | of | | | | | | | | | | + +--------+ +--------+ + + | Gene Ashley | Person | Self [birth year] | [address] | | | al/Fam | | 1936 | [phone] | [address] | | | [place] | | | [address] (Home) | [place] [address] | + +--------+ +--------+ + +"
--- OUTSIDE RECORDS SUMMARY | ~2019-02-04 | XMS | Encounter Summary ---
Demographics + + + | Address | [address] | | | [place] [address] | + + + | Home Phone | | + + + | Preferred Language | Unknown | + + + | Marital Status | | + + + | Jewish Affiliation | 1013 | + + + | Race | Unknown | + + + | Ethnic Group | Unknown | + + + Author + + + | Author | [facility] | | | and [place] | + + + | Organization | [facility] | | | and [...] Team Providers + +------+ + | Care Timber Packer Name | Role | Phone | + [...] 2019 | | [address] | Breakfast Bar Attendant | proteinuria; Chronic | | | | [place] | | kidney disease, | | | | [address] | | stage IV (severe) | | | | [phone] | | (HCC); Other | | | [...] [place] | | | | | | [address] | | | | | | | [...] | | | RATIO,URINE | performed at [facility];[address] | | LAB | | | | [place] | | [facility] | | | | [address];[place] [address] | | LABORATORY | | + + + + + + + + | Specimen | + + | Urine | + + + + + + + | Performing | Address | City/State/Zipcode | Phone Number | | Organization | | | | + + + + + | REFERENCE LAB | [address] [place] [address] | [place] [address] | [phone] | | [facility] | Blvd[address] | | | | LABORATORY | | | | + + + + + | REFERENCE LAB | [address] [place] [address] | [place] [address] | | | [facility] | Bl[address] | [...] | | | | | performed at [facility];[address] | | | | | | [facility] | | | | | | [facility];[place] [address] | | | | | | | | | | + + + + + + + + | Specimen | + + | Blood | + + + + + + + | Performing | Address | City/State/Zipcode | Phone Number | | Organization | | | | + + + + + | REFERENCE LAB | [address] | [place] [address] | [phone] | | [facility] | Bl[address] | | | | LABORATORY | | | | + + + + + | REFERENCE LAB | [address] | [place] [address] | | | [facility] | Bl[address] | [...] | | LAB | | | | [place] | | [facility] | | | | Blvd;[place] [address] | | LABORATORY | | + + + + + + + + | Specimen | + + | Blood | + + + + + + + | Performing | Address | City/State/Zipcode | Phone Number | | Organization | | | | + + + + + | REFERENCE LAB | [address] | [place] [address] | [phone] | | [facility] | Bl[address] | | | | LABORATORY | | | | + + + + + | REFERENCE LAB | [address] | [place] [address] | | | [facility] | Bl[address] | [...] | | | Morphology | performed at [facility];[address] | | LAB | | | | [place] | | [facility] | | | | Bl[address];[place] [address] | | LABORATORY | | | | | | | | + + + + + + + + | Specimen | + + | Blood | + + + + + + + | Performing | Address | City/State/Zipcode | Phone Number | | Organization | | | | + + + + + | REFERENCE LAB | [address] | [place] [address] | [phone] | | [facility] | Blvd[address] | | | | LABORATORY | | | | + + + + + | REFERENCE LAB | [address] | [place] [address] | | | [facility] | Bl[address] | [...] REFERENCE | | | | performed at [facility];[address] | | LAB | | | | [facility] | | [facility] | | | | [address];[place] [address] | | LABORATORY | | + + + + + + + + | Specimen | + + | Blood | + + + + + + + | Performing | Address | City/State/Zipcode | Phone Number | | Organization | | | | + + + + + | REFERENCE LAB | [address] [place] [address] | [place] [address] | [phone] | | [facility] | Blvd[address] | | | | LABORATORY | | | | + + + + + | REFERENCE LAB | [address] [place] [address] | [place] [address] | | | [facility] | Bl[address] | [...] REFERENCE | | | | performed at [facility];[address] | | LAB | | | | [place] | | [facility] | | | | Bl[address];[place] [address] | | LABORATORY | | + + + + + + + + | Specimen | + + | Blood | + + + + + + + | Performing | Address | City/State/Zipcode | Phone Number | | Organization | | | | + + + + + | REFERENCE LAB | [address] [place] [address] | [place] [address] | [phone] | | [facility] | Blvd[address] | | | | LABORATORY | | | | + + + + + | REFERENCE LAB | [address] [place] [address] | [place] [address] | | | [facility] | Bl[address] | [...] LAB | | | | performed at [facility];[address] | | [facility] | | | | [place] | | LABORATORY | | | | [place]vd;[place] [address] | | | | | | | | | | + + + + + + + + | Specimen | + + | | + + + + + + + | Performing | Address | City/State/Zipcode | Phone Number | | Organization | | | | + + + + + | REFERENCE LAB | [address] | [place] [address] | [phone] | | [facility] | Blvd. | | | | LABORATORY | | | | + + + + + | REFERENCE LAB | [address] [place] [address] | [place] [address] | | | [facility] | Blvd. | | | [...] | | | urine | performed at [facility];[address] | | [facility] | | | | [place] | | LABORATORY | | | | [place] [address] | | | | | | | | | | + + + + + + + + | Specimen | + + | | + + + + + + + | Performing | Address | City/State/Zipcode | Phone Number | | Organization | | | | + + + + + | REFERENCE LAB | [address] | [place] [address] | [phone] | | [facility] | Blvd[address] | | | | LABORATORY | | | | + + + + + | REFERENCE LAB | [address] | [place] [address] | | | [facility] | Blvd[address] | [...]
--- OUTSIDE RECORDS SUMMARY | ~2019-02-04 | XMS | Clinical Summary ---
Demographics + + + | Address | [address] | | | [place] [address] | + + + | Home Phone | | + + + | Preferred Language | Unknown | + + + | Marital Status | | + + + | Pentecostal Affiliation | 1013 | + + + | Race | Unknown | + + + | Ethnic Group | Unknown | + + + Author + + + | Author | [facility] | | | and [place] | + + + | Organization | [facility] | | [...] Team Providers + +------+ + | Care Sound Effects Manager Name | Role | Phone | + +------+ + | Darion Cohn DO | PCP | | + +------+ + Allergies + + + + + + | Active Allergy | Reactions | Severity | Noted | Comments | | | | | Date | | + + + + + + | Aspirin | Diarrhea | Low | 01/15/20 | Pt states she can | | | | | 11 | tolerate the Low | | | | | | dose of Asprin, | | | | | | diarrhea if dose | | | | | | increases Pt states | | | | | | she can tolerate | | | | | | the Low dose of | | | | | | Asprin, diarrhea if | | | | | | dose increases. | | | | | | | + + + + + + | Metoclopramide | Other (See Comments) | Medium | 12/01/19 | Restless leg | | | | | 13 | | + + + + + + Medications + + + +---------+------+------+-------+ | Medication | Sig | Dispensed | Refills | Star | End | Statu | | | | | | t | Date | s | | | | | | Date | | | + + + +---------+------+------+-------+ | gabapentin | Take 600 mg by mouth | | 0 | | | Activ | | (NEURONTIN) 300 mg | Daily. | | | | | e | | capsule | | | | | | | + + + +---------+------+------+-------+ | potassium chloride | Take 20 mEq by mouth | | 0 | | | Activ | | (K-DUR) 20 mEq | 2 times daily. | | | | | e | | tablet | | | | | | | + + + +---------+------+------+-------+ | sertraline | Take 100 mg by mouth | | 0 | | | Activ | | (ZOLOFT) 100 mg | Daily. | | | | | e | | tablet | | | | | | | + + + +---------+------+------+-------+ | Cholecalciferol | Take by mouth. | | 0 | | | Activ | | (VITAMIN D3) 5000 | | | | | | e | | UNITS CAPS | | | | | | | + + + +---------+------+------+-------+ | aspirin 81 mg EC | Take 81 mg by mouth | | 0 | | | Activ | | tablet | Daily. | | | | | e | + + + +---------+------+------+-------+ | magnesium chloride | Take 64 mg by mouth | | 0 | | | Activ | | (MAG64) 64 mg TBCR | 2 times daily. | | | | | e | + + + +---------+------+------+-------+ | pramipexole | Take 0.5 mg by mouth | | 0 | | | Activ | | (MIRAPEX) 0.5 MG | Daily. | | | | | e | | tablet | | | | | | | + + + +---------+------+------+-------+ | acetaminophen | Take 500 mg by mouth | | 0 | | | Activ | | (TYLENOL) 500 mg | every 6 hours as | | | | | e | | tablet | needed. | | | | | | + + + +---------+------+------+-------+ | allopurinol | Take 100 mg by mouth | | 0 | | | Activ | | (ZYLOPRIM) 100 mg | Daily. | | | | | e | | tablet | | | | | | | + + + +---------+------+------+-------+ | atorvaSTATin | Take 80 mg by mouth | | 0 | | | Activ | | (LIPITOR) 80 MG | Daily. | | | | | e | | tablet | | | | | | | + + + +---------+------+------+-------+ | Cyanocobalamin | Take 500 mcg by | | 0 | | | Activ | | (VITAMIN B 12 PO) | mouth Daily. | | | | | e | + + + +---------+------+------+-------+ | docusate sodium | Take 100 mg by mouth | | 0 | | | Activ | | (COLACE) 100 mg | 2 times daily. | | | | | e | | capsule | | | | | | | + + + +---------+------+------+-------+ | ferrous sulfate | Take 325 mg by mouth | | 0 | | | Activ | | 325 mg tablet | daily (with | | | | | e | | | breakfast). | | | | | | + + + +---------+------+------+-------+ | folic acid 1 mg | Take 1 mg by mouth | | 0 | | | Activ | | tablet | Daily. | | | | | e | + + + +---------+------+------+-------+ | | Take 1 tablet by | | 0 | | | Activ | | HYDROcodone-acetamin | mouth every 4 hours | | | | | e | | ophen (NORCO) 10-325 | as needed for Pain. | | | | | | | mg per tablet | | | | | | | + + + +---------+------+------+-------+ | levothyroxine | Take 112 mcg by | | 0 | | | Activ | | (SYNTHROID) 112 mcg | mouth every morning | | | | | e | | tablet | (before breakfast). | | | | | | + + + +---------+------+------+-------+ | raNITIdine | Take 150 mg by mouth | | 0 | | | Activ | | (ZANTAC) 150 mg | 2 times daily. | | | | | e | | tablet | | | | | | | + + + +---------+------+------+-------+ | metoprolol | Take 1 tablet by | 30 | 11 | 08/2 | | Activ | | succinate | mouth Daily. | tablet | | 0/20 | | e | | (TOPROL-XL) 25 mg 24 | | | | 19 | | | | hr tablet | | | | | | | + + + +---------+------+------+-------+ | midodrine | Take 1 tablet by | 120 | 11 | 08/2 | | Activ | | (PROAMATINE) 5 mg | mouth 4 times daily. | tablet | | 0/20 | | e | | tablet | 1 tablet at 6 AM, 9 | | | 19 | | | | | AM, noon, and 3 PM | | | | | | | | daily | | | | | | + + + +---------+------+------+-------+ | apixaban (ELIQUIS) | Take 1 tablet by | 60 | 11 | 08/2 | | Activ | | 5 mg tablet | mouth 2 times daily. | tablet | | 0/20 | | e | | | | | | 19 | | | + + + +---------+------+------+-------+ | digoxin (LANOXIN) | Take 1 tablet by | 30 | 11 | 08/2 | | Activ | | 125 mcg tablet | mouth Three times a | tablet | | 0/20 | | e | | | week. | | | 19 | | | + + + +---------+------+------+-------+ | torsemide | Take 1 tablet by | 30 | 11 | | | Activ | | (DEMADEX) 10 mg | mouth Daily. | tablet | | 06/22 | | e | | tablet | | | | 19 | | | + + + +---------+------+------+-------+ Active Problems + + + | Problem | Noted Date | + + + | Electrolyte imbalance risk | 12/06/2018 | + + + | Secondary hyperparathyroidism | 12/06/2018 | + + + | Persistent atrial fibrillation | 11/22/2018 | + + + + + | Overview: Will now do a rate control strategy. Stop | | amiodarone. Resume metoprolol starting with 6.25 mg/day and | | gradually increasing that to at least 25 or 50 mg/day. Resume | | apixaban 5 mg twice daily since she is no longer falling. | | Increase digoxin to 0.125 mg 3 days/week | + + + + + | Orthostatic hypotension | 11/22/2018 | + + + + + | Overview: She has severe orthostatic hypotension that has | | improved with the addition of midodrine and Florinef. | | Unfortunately, with her LV systolic dysfunction, the Florinef is | | leading to fluid retention and volume overload. She is now on | | torsemide twice per day because of edema and shortness of breath. | | I recommended stopping Florinef and decreasing torsemide to 10 | | mg daily. Increase midodrine to 5 mg at 6 AM, 9 AM, noon, and 3 | | PM daily. She can take an extra 5 mg as needed for dizziness. | + + +---------+ + | Hypoxia | 11/22/2018 | +---------+ + + + | Overview: Her saturations have dropped into the 80s sometimes | | with exertion. Oxygen has been recommended on my wholeheartedly | | agree with that. She uses CPAP when sleeping or if she becomes | | short of breath. | + + + + + | Falls frequently | 09/13/2018 | + + + + + | Overview: 3 falls today-evidence of orthostatic hypotension | + + + + + | Pacemaker | 07/12/2018 | + + + + + | Overview: 07/12/2018Appropriate pacer function was seen today. | | Atrial pacing 47%, RV pacing 28%, DDDR 60-110 bpm. Right | | ventricular threshold 0.75 V at 0.6 ms with an impedance of 440 | | ohms. Underlying atrial flutter with irregular ventricular | | response approximately 40 bpm. Mode switch 51% of the time was | | 545 AMS episodes. AT/AF burden is 50% with the most recent | | episode starting on May 15, 2018 with a peak V rate of 173 | | bpm consistent with atrial flutter with rapid ventricular | | response. She has had 3 high ventricular rate episodes all | | consistent with atrial flutter with rapid ventricular response | | 08/18/18:She was in complete heart block today, so the device was | | programmed back into a DDDR pacing mode. The base rate was left | | at 65 bpm and rest rate 60 bpm. The pacing threshold was 0.75 V | | at 0.6 ms in the atrium and 0.5 V at 0.6 ms and the right | | ventricle. R waves were 10.6 mV. RV pacing has occurred 48% of | | the time. Appropriate device function was seen. | + + + + + | Generalized weakness | 03/08/2018 | + + + | Typical atrial flutter | 10/05/2017 | + + + + + | Overview: This lady has had atrial flutter on 2 different | | occasions and she's had 2 cardioversions recently. Unfortunately | | she reverted back to atrial flutter. An atrial flutter | | ablation was performed in October 2017. She has had no recurrence of | | flutter since then. She has had paroxysmal atrial fibrillation | | in the past. Continue amiodarone.07/12/2018Clinical recurrence of | | persistent atrial flutter is noted on her device since May | | 2018. Her rate has overall been reasonably well-controlled. | | She has noted increased fatigue. She is also falling more | | frequently. She continues on amiodarone 300 mg daily and has | | been compliant with her medications. Despite nebs protocol in | | the atrium, she could not be paced out of atrial flutter today. | | The goals risks and benefits of an electrical cardioversion were | | discussed with the patient and her daughter at length today. | | They desire to proceed. We will arrange a cardioversion for | | tomorrow. She has been therapeutic on her INR for the past month | | and in fact has been supratherapeutic at times. At no time in | | the last month has her INR been less than 2.0. INR performed | | today in the office was 2.7. | + + + + + | Bilateral carotid artery stenosis | 08/01/2017 | + + + + + | Overview: Bilateral carotid stenosis of 50-69% noted on | | ultrasound July 2017. On aspirin. Asymptomatic. | + + + + + | Tricuspid regurgitation | 08/01/2017 | + + + + + | Overview: Moderate mitral regurgitation and moderate to | | severe TR were seen on an echocardiogram. Increase hydralazine to | | 25 mg twice a day for afterload reductionFormatting of this note | | may be different from the original. Moderate to severe tricuspid | | regurgitation seen on an echocardiogram. An echo in May revealed the followin. Overall left ventricular systolic | | function is normal with, an EF of 40 %. 2. Restrictive LV | | diastolic filling pattern, consistent with elevated LA pressure | | and severe dysfunction (grade III). 3. There is mild aortic | | stenosis present. 4. Moderate mitral regurgitation is present. 5. | | Moderate to severe tricuspid regurgitation present. 6. There is | | equivocal severe pulmonary hypertension. will add low-dose | | afterload reduction with hydralazine. Not an CARMEN or ARB | | candidate because of renal failure. Add intravenous diuresis. | + + + + + | Fusion of spine of cervical region | 10/30/2015 | + + + | Chronic combined systolic and diastolic congestive heart failure | 12/23/2014 | + + + + + | Overview: Ejection fraction 40% on last echo, with moderate | | MR. Moderately severe TR. Moderate pulmonary hypertension and | | ejection fraction 40% Paroxysmal atrial fibrillation and flutter | | by history. In A. Fib with occasional rapid rates. An atrial | | flutter ablation was performed on October 13, 2017.08/18/18 She | | returns today in a VVI mode, in complete heart block with sinus | | rhythm. Rate 60 bpm. The return to sinus rhythm was unexpected. | | She was programmed back into a DDD pacing mode, and will | | hopefully feel better with AV synchrony restored. The isosorbide | | dinitrate will be discontinued. Try to increase metoprolol back | | to 25 mg twice per day. Continue low-dose digoxin. Resume | | amiodarone 200 mg per day. Continue torsemide 10 mg per day. | | Decrease potassium to 10 mEq per day. | + + + + + | Pulmonary hypertension | 12/23/2014 | + + + + + | Overview: Formatting of this note may be different from the | | original.The last echo from March 2018 revealed an ejection | | fraction of 40%, mild to moderate pulmonary hypertension, | | moderate to severe tricuspid regurgitation, mild to moderate | | mitral regurgitation, severe left atrial enlargement and moderate | | right atrial enlargement. | + + + + + | Sinus node dysfunction | 12/22/2014 | + + + + + | Overview: She has a permanent [employer] permanent pacemaker | | that was placed on August 02, 2017 because of sinus node | | dysfunction. 07/12/2018Appropriate pacer function was seen today. | | Atrial pacing 47%, RV pacing 28%, DDDR 60-110 bpm. Right | | ventricular threshold 0.75 V at 0.6 ms with an impedance of 440 | | ohms. Underlying atrial flutter with irregular ventricular | | response approximately 40 bpm. Mode switch 51% of the time was | | 545 AMS episodes. AT/AF burden is 50% with the most recent | | episode starting on May 15, 2018 with a peak V rate of 173 | | bpm consistent with atrial flutter with rapid ventricular | | response. She has had 3 high ventricular rate episodes all | | consistent with atrial flutter with rapid ventricular | | response.11/22/2018:The underlying rhythm is atrial fibrillation. | | Pacing has occurred in the ventricle 68% of the time and in the | | right atrium less than 1% of the time. The pacemaker was | | programmed into a VVI pacing mode today, with a lower rate of 60 | | and hysteresis of 50 bpm to minimize ventricular pacing. She has | | been pacing more in the ventricle than necessary, so that may be | | contributing to her LV systolic function deterioration. A rate | | control strategy will be followed for atrial fibrillation and | | flutter in the future. Amiodarone will be stopped. | + + + + + | Persistent atrial fibrillation | 12/22/2014 | + + + + + | Overview: Atrial fibrillation was first diagnosed 2-1/2 years | | ago. Amiodarone was added on February 23, 2017 (200 mg per day). | | She is anticoagulated with warfarin . Target INR 2-3. Her | | chads 2 vascular score is 7.She takes CPAP and 2 L of oxygen | | nocturnally because of sleep apnea. She had a flutter ablation | | in October of this year. Continue amiodarone to prevent the A. | | Fib.07/12/2018No EGMS consistent with AFIB noted on her device | | interrogation. Consider changing to Eliquis given frequent | | supratherapeutic INR results recently. 07/20/18:She reverted to | | atrial flutter/fibrillation the day after her recent | | cardioversion. A rate control strategy will therefore be | | followed. She has severe left atrial enlargement, moderate | | pulmonary hypertension, moderately severe TR, moderate MR and at | | least moderate LV systolic dysfunction, so the chance of | | restoring and maintaining sinus rhythm is very low. Amiodarone | | will be stopped. Digoxin will be added, taking care to dose very | | carefully, since she has amiodarone on board and has renal | | failure and is elderly. After 1 mg digoxin load, she will be | | given 0.125 mg 2 days per week. Increase metoprolol to 25 mg | | twice a day if she tolerates that, for rate control. Switch from | | warfarin to apixaban 2.5 mg twice a day once the INR is less | | than 2.0. The INR was 6, four days ago, and the warfarin has | | been held. 08/18/18:Decrease apixaban to 2.5 mg twice a day. | | Resume amiodarone since she is in sinus rhythm today. 200 mg per | | day.11/22/2018:She is in atrial fibrillation with a controlled | | ventricular response today. Very unlikely to maintain sinus | | rhythm chronically so the amiodarone will be stopped and a rate | | control strategy will be employed. Increase digoxin to 0.125 | | mill grams 3 days/week and try and get her back on metoprolol | | very slowly. She did not tolerate Coreg from a blood pressure | | perspective and has not tolerated higher doses of metoprolol in | | the past. Is now on midodrine for blood pressure and feeling | | better. | + + + + + | Lumbar facet arthropathy | 10/17/2014 | + + + + + | Overview: Last Assessment & Plan: | | Please see discussion under lumbar stenosis | + + + + + | Lumbar stenosis | 09/13/2014 | + + + + + | Overview: Last Assessment & Plan: This patient symptoms are | | consistent with neurogenic claudication. Her lumbar MRI that | | showed severe lumbar stenosis at L4-5 and moderate-severe L2-3, | | moderate L3-4. She saw Dr. roca for her current complaints of | | low back pain with bilateral lower extremity weakness. She does | | have symptoms consistent with neurogenic claudication. Dr. roca | | felt that she was at high risk for surgery due to her medical | | history. Encouraged her to try interventional treatment. We will | | plan on right and left L5 transforaminal epidural steroid | | injections under fluoroscopic guidance.Plan, alternatives, risks | | and potential benefits of the procedure were explained to the | | patient in great detail. The patient understands that there is | | no guarantee they will get pain relief with this procedure. They | | also understand that if they do get pain relief that there is no | | way to know how long it will last. They also understand there | | is a risk to the procedure itself which includes but are not | | limited to infection, abscess, hematoma, nerve damage, paraplegia | | or quadriplegia, increased pain, spinal headache, stroke, and | | side effects from the medications themselves. The patient wishes | | to proceed. | + + + + + | Stress-induced cardiomyopathy | 11/11/2012 | + + + + + | Overview: takatsubo cardiomyopathy was diagnosed 5 years | | ago. Subsequent cardiac catheterization in February 2015 | | revealed a 40% ostial LAD lesion but no other significant | | coronary disease. A nuclear stress test in 2017 was negative for | | ischemia. The ejection fraction in March 2018 was 40% in the | | context of moderately severe TR and moderate MR. Severe LAE. | + + + + + | Hypokalemia | 11/09/2012 | + + + + + | Overview: . Potassium is 3.2 and was replaced earlier today. | | Magnesium was also supplemented. | + + + + + | NSTEMI (non-ST elevated myocardial infarction) | 11/02/2012 | + + + | Essential hypertension with goal blood pressure less than 130/80 | 01/14/2011 | + + + + + | Overview: Her blood pressure has been low recently and she | | has been unable to function. She is now off of the beta-blockers | | and afterload reduction and is on Florinef and midodrine and | | feels much better. | + + + + + | Hypomagnesemia | 01/14/2011 | + + + | Persistent proteinuria | 01/14/2011 | + + + | CKD (chronic kidney disease) stage 3, GFR 30-59 ml/min | 01/14/2011 | + + + | Subdural hematoma, post-traumatic | 10/03/2006 | + + + + + | Overview: She had frequent falls and smacked her head. | + + + +---+ | RIGOBERTO (obstructive sleep apnea) | | + +---+ | Hearing loss | | + +---+ | Broken heart syndrome | | + +---+ | Seizures | | + +---+ + + | Overview: from subdural | + + + +---+ | Depression | | + +---+ | Periodic limb movement disorder (PLMD) | | + +---+ Resolved Problems + + + + | Problem | Noted | Resolved | | | Date | Date | + + + + | Acute renal failure | 10/04/19 | | | | 07 | 9 | + + + + + + | Overview: Resolved | + + Encounters +--------+ + + + + | Date | Type | Specialty | Care Team | Description | +--------+ + + + + | 09/03/ | Office | Nephrology | Angel Alcantara MD | CKD (chronic kidney | | 2019 | Visit | | | disease) stage 3, | | | | | | GFR 30-59 ml/min | | | | | | ([facility]) (Primary Dx); | | | | | | Persistent | | | | | | proteinuria; | | | | | | Hypomagnesemia; | | | | | | Electrolyte | | | | | | imbalance risk; | | | | | | Secondary | | | | | | hyperparathyroidism | | | | | | ([facility]) | +--------+ + + + + | 12/06/ | Orders Only | Nephrology | Angel Alcantara MD | Essential | | 2019 | | | | hypertension with | | | | | | goal blood pressure | | | | | | less than 130/80 | | | | | | (Primary Dx); CKD | | | | | | (chronic kidney | | | | | | disease) stage 3, | | | | | | GFR 30-59 ml/min | | | | | | ([facility]); Persistent | | | | | | proteinuria | +--------+ + + + + | 11/30/ | Orders Only | | Osmin Poole, | Persistent | | 2018 | | | [employer] | proteinuria; Chronic | | | | | | kidney disease, | | | | | | stage IV (severe) | | | | | | ([facility]); Other | | | | | | specified personal | | | | | | risk factors, not | | | | | | elsewhere | | | | | | classified; | | | | | | Hypokalemia | +--------+ + + + + | 11/22/ | Office | Cardiology | Myron Hernandez, | Persistent atrial | | 2019 | Visit | | MD | fibrillation ([facility]); | | | | | | Orthostatic | | | | | | hypotension; | | | | | | Hypoxia; Essential | | | | | | hypertension with | | | | | | goal blood pressure | | | | | | less than 130/80; | | | | | | Sinus node | | | | | | dysfunction ([facility]); | | | | | | Typical atrial | | | | | | flutter (HCC) | +--------+ + + + + | 11/22/ | Procedure | Cardiology | | Persistent atrial | | 2018 | visit | | | fibrillation (HCC) | | | | | | (Primary Dx); | | | | | | Typical atrial | | | | | | flutter (HCC); | | | | | | Pacemaker | +--------+ + + + + from Last 3 Months Family History + + +------+ + | Medical History | Relation | Name | Comments | + + +------+ + | Diabetes | Daughter | | | + + +------+ + | Cancer | Maternal | | | | | Grandfath | | | | | er | | | + + +------+ + | Stroke | Maternal | | | | | Grandmoth | | | | | er | | | + + +------+ + | Diabetes | Mother | | | + + +------+ + | High blood pressure | Mother | | | + + +------+ + | Stroke | Mother | | | + + +------+ + | Stroke | Paternal | | | | | Grandfath | | | | | er | | | + + +------+ + | Heart disease | Paternal | | | | | Grandmoth | | | | | er | | | + + +------+ + + +------+ + + | Relation | Name | Status | Comments | + +------+ + + | Daughter | | Alive | | + +------+ + + | Father | | | COPD | | | | (Age | | | | | 79) | | + +------+ + + | Maternal Grandfather | | | CANCER | + +------+ + + | Maternal Grandfather | | | | + +------+ + + | Maternal Grandmother | | | | + +------+ + + | Maternal Grandmother | | | | + +------+ + + | Mother | | | | | | | (Age | | | | | 86) | | + +------+ + + | Mother | | | | + +------+ + + | Paternal Grandfather | | | | + +------+ + + | Paternal Grandfather | | | | + +------+ + + | Paternal Grandmother | | | HEART | + +------+ + + | Paternal Grandmother | | | | + +------+ + + | Sister | | Alive | POLYCYSTIC OVARY SYNDROME | + +------+ + + Social History + + + [...] | + + Last Filed Vital Signs + + + + | Vital Sign | Reading | Time Taken | + + + + | Blood Pressure | 111/60 | 12/06/20181208 PDT | + + + + | Pulse | 61 | 12/06/20181208 PDT | + + + + | Temperature | 36.6 C (97.8 F) | 07/23/20181131 PDT | + + + + | Respiratory Rate | 16 | 07/23/20181131 PDT | + + + + | Oxygen Saturation | 93% | 12/06/20181208 PDT | + + + + | Inhaled Oxygen | - | - | | Concentration | | | + + + + | Weight | 64.8 kg (142 lb 14.4 | 12/06/20181208 PDT | | | oz) | | + + + + | Height | 152.4 cm (5') | 12/06/20181208 PDT | + + + + | Body Mass Index | 27.91 | 12/06/20181208 PDT | + + + + Plan of Treatment +--------+ + + + [...] | | | | | [address] [place], [place] | | | | | | [address] | | | | | | | | +--------+ + + + + | 02/23/ | Procedure | Cardiology | | | | 2018 | visit | | | | +--------+ + + + + | 05/23/ | Procedure | Cardiology | | | | 2019 | visit | | | | +--------+ + + + + + + + + + | Health Maintenance | Due Date | Last Done | Comments | + + + + + | Vaccine: Zoster (2 | | 12/08/2006 | | | of 3) | 7 | | | + + + + + | Vaccine: | | 12/28/2014 | | | Pneumococcal 65+ | 6 | | | | Low/Medium Risk (2 | | | | | of 2 - PPSV23) | | | | + + + + + | Adult Annual | | | | | Wellness Visit | 9 | | | + + + + + | Vaccine: Influenza | | 02/15/2018, 01/22/2017, | | | (#1) | 9 | 02/06/2016, Additional history | | | | | exists | | + + + + + | Vaccine: | | 06/27/2018, 05/13/2017 | | | Dtap/Tdap/Td (3 - | 9 | | | | Td) | | | | + + + + + Procedures + +--------+ + + + | [...] section. | + +--------+ + + + from Last 3 Months Results Protein/Creatinine Ratio, Urine (11/30/2018 15:28 PDT) + + + + + + | Component | Value | Ref Range | Performed | Pathologist | | | | | At | Signature | + + + + + + | PRO/CREA | [id number]: Testing | | REFERENCE | | | RATIO,URINE | performed at T[facility];[address] | | LAB | | | | [facility] | | [address];[place] [address] | | LABORATORY | | + + + + + + + + | Specimen | + + | Urine | + + + + + + + | Performing | Address | City/State/Zipcode | Phone Number | | Organization | | | | + + + + + | REFERENCE LAB | [address] [facility] | [place] [address] | [phone] | | [facility] | [address] | | | | LABORATORY | | | | + + + + + | REFERENCE LAB | [address] [facility] | [place] [address] | | | [facility] | [address] | [...] | | | Morphology | performed at [facility];[address] | | LAB | | | | [place] | | [facility] | | | | [address];[place] [address] | | LABORATORY | | | | | | | | + + + + + + + + | Specimen | + + | Blood | + + + + + + + | Performing | Address | City/State/Zipcode | Phone Number | | Organization | | | | + + + + + | REFERENCE LAB | [address] [facility] | [place] [address] | [phone] | | [facility] | Bl[address] | | | | LABORATORY | | | | + + + + + | REFERENCE LAB | [address] [facility] | [place] [address] | | | [facility] | [address] | [...] REFERENCE | | | | performed at [facility];[address] | | LAB | | | | [place] | | [facility] | | | | Bl[address];[place] [address] | | LABORATORY | | + + + + + + + + | Specimen | + + | Blood | + + + + + + + | Performing | Address | City/State/Zipcode | Phone Number | | Organization | | | | + + + + + | REFERENCE LAB | [address] [place] [address] | [place] [address] | [phone] | | [facility] | Bl[address]. | | | | LABORATORY | | | | + + + + + | REFERENCE LAB | [address] [place] [address] | [place] [address] | | | [facility] | [address] | [...] REFERENCE | | | | performed at [facility];[address] | | LAB | | | | [place] | | [facility] | | | | Blvd;[place] [address] | | LABORATORY | | + + + + + + + + | Specimen | + + | Blood | + + + + + + + | Performing | Address | City/State/Zipcode | Phone Number | | Organization | | | | + + + + + | REFERENCE LAB | [address] [place] [address] | [place] [address] | [phone] | | [facility] | Bl[address] | | | | LABORATORY | | | | + + + + + | REFERENCE LAB | [address] [place] [address] | [place] [address] | | | [facility] | [address] | [...] REFERENCE | | | | performed at [facility];[address] | | LAB | | | | [facility] | | [facility] | | | | Bl[address];[place] [address] | | LABORATORY | | + + + + + + + + | Specimen | + + | Blood | + + + + + + + | Performing | Address | City/State/Zipcode | Phone Number | | Organization | | | | + + + + + | REFERENCE LAB | [address] [facility] | [place] [address] | [phone] | | [facility] | [address] | | | | LABORATORY | | | | + + + + + | REFERENCE LAB | [address] [place] [address] | [place] [address] | | | [facility] | [address]. | [...] | | | | | performed at [facility];[address] | | | | | | [facility] | | | | | | Blvd;[place] [address] | | | | | | | | | | + + + + + + + + | Specimen | + + | Blood | + + + + + + + | Performing | Address | City/State/Zipcode | Phone Number | | Organization | | | | + + + + + | REFERENCE LAB | [address] [facility] | [place] [address] | [phone] | | [facility] | Bl[address] | | | | LABORATORY | | | | + + + + + | REFERENCE LAB | [address] [facility] | [place] [address] | | | [facility] | Blvd. | | | | LABORATORY [...] LAB | | | | performed at [facility];[address] | | [facility] | | | | [place] | | LABORATORY | | | | Blvd;[place] [address] | | | | | | | | | | + + + + + + + + | Specimen | + + | | + + + + + + + | Performing | Address | City/State/Zipcode | Phone Number | | Organization | | | | + + + + + | REFERENCE LAB | [address] [place] [address] | [place] [address] | [phone] | | [facility] | Blvd[address] | | | | LABORATORY | | | | + + + + + | REFERENCE LAB | [address] [place] [address] | [place] [address] | | | [facility] | [address] | [...] | | | urine | performed at [facility];[address] | | [facility] | | | | [facility] | | LABORATORY | | | | Blvd;[place] [address] | | | | | | | | | | + + + + + + + + | Specimen | + + | | + + + + + + + | Performing | Address | City/State/Zipcode | Phone Number | | Organization | | | | + + + + + | REFERENCE LAB | [address] [place] [address] | [place] [address] | [phone] | | [facility] | Blvd[address] | | | | LABORATORY | | | | + + + + + | REFERENCE LAB | [address] [place] [address] | [place] [id number] | | | [facility] | Blvd. | | | | LABORATORY | | | | + + + + + from Last 3 Months Insurance + +--------+ +--------+ +---------+--------+ | Payer | Benefi | Subscriber | Effect | Phone | Address | Type | | | t Plan | ID | valerio | | | | | | / | | Dates | | | | | | Group | | | | | | + +--------+ +--------+ +---------+--------+ | MEDICARE | MEDICA | [id number] | 09/03/18 | [phone] | | Medica | | | RE | | 99-Pre | 5 | | re | | | PART A | | sent | | | | | | AND B | | | | | | + +--------+ +--------+ +---------+--------+ | MEDICARE | MEDICA | [id number] | 09/03/18 | [phone] | | Medica | | | RE | | 99-Pre | 5 | | re | | | PART A | | sent | | | | | | AND B | | | | | | + +--------+ +--------+ +---------+--------+ | BCBS | BCBS | [id number] | 04/13/18 | | | PPO | | | [place] | | 83-Pre | | | | | | L FEP | | sent | | | | + +--------+ +--------+ +---------+--------+ | BCBS | BCBS | [id number] | 04/13/18 | | | PPO | | | [place] | | 83-Pre | | | | | | L FEP | | sent | | | | + +--------+ +--------+ +---------+--------+ + +--------+ +--------+ + + | Guarantor Name | Accoun | Relation to | Date | Phone | Billing Address | | | t Type | Patient | of | | | | | | | | | | + +--------+ +--------+ + + | Gene Ashley | Person | Self [birth year] [address] | | [place]asha | al/Fam | | 1935 | [phone] | [address] | | | [place] | | | 2 (Home) | [place] | | | | | | [phone] | [address] | | | | | | 2 (Work) | | + +--------+ +--------+ + + | Gene Ashley | Person | Self | [birth year] | [address] | | Shasha | al/Fam | | [birth year] | [phone] | [address] | | | [place] | | | 2 (Home) | [place] | | | | | | | [address] | + +--------+ +--------+ + + Advance Directives Patient has advance care planning documents on file. For more information, please contact:[place] [address]"
--- OUTSIDE RECORDS SUMMARY | ~2019-02-04 | XMS | Encounter Summary ---
Demographics + + + | Address | [address] | | | [place] [address] | + + + | Home Phone | | + + + | Preferred Language | Unknown | + + + | Marital Status | Single | + + + | Congregational Affiliation | Unknown | + + + | Race | Unknown | + + + | Ethnic Group | Other Race | + + + Author + + + | Author | [facility] | + + + | Organization | [facility] | + + + | Address | Unknown | + + + | Phone | Unavailable | + + + Support + + +---------+ + | Name | Relationship | Address | Phone | + + +---------+ + | None None | ECON | Unknown | Unavailable | + + +---------+ + Care Team Providers + +------+ + | Care Inside Sales Advertising Executive Name | Role | Phone | + +------+ + PCP | Unavailable | + +------+ + Encounter Details +--------+ + + + + | Date | Type | Department | Care Team | Description | +--------+ + + + + | 12/21/ | Ancillary | Registration [id number] | | | | 2006 | Registratio | [facility] | | | | | n | [address] Mailcode: [id number] | | | | | | [place], [place] | | | | | | [address] | | | | | | [phone] | | | +--------+ + + + [...]
--- OUTSIDE RECORDS SUMMARY | ~2019-02-04 | XMS | Encounter Summary ---
Demographics + + + | Address | [address] | | | [place] [address] | + + + | Home Phone | | + + + | Preferred Language | Unknown | + + + | Marital Status | | + + + | Yarsanism Affiliation | 1013 | + + + | Race | Unknown | + + + | Ethnic Group | Unknown | + + + Author + + + | Author | [facility] | | | and [place] | + + + | Organization | [facility] | | | [...] Team Providers + +------+ + | Care Property Management Specialist Name | Role | Phone | + +------+ + | Darion Cohn DO | PCP | | + +------+ + Encounter Details +--------+ + + + + | Date | Type | Department | Care Team | Description | +--------+ + + + + | 12/06/ | Orders Only | [facility] | Angel Alcantara MD | Essential | | 2019 | | NEPHROLOGY [place] | [address] [place] | hypertension with | | | | [address] [place] | [address] [place], [place] | goal blood pressure | | | | [address] [place], [place] | [address] | less than 130/80 | | | | [address] | | (Primary Dx); CKD | | | | [phone] | | (chronic kidney | | | | | | disease) stage 3, | | | | | | GFR 30-59 ml/min | | | | | | ([facility]); Persistent | | | | | [...] | | | | | [facility] | | | | | | [address] | | | | | | | [...] 30-59 ml/min | | | | | ([facility]) Persistent | | | | | [...] 30-59 ml/min | | | | | ([facility]) Persistent | | | | | [...] 30-59 ml/min | | | | | ([facility]) Persistent | | | | | [...] 30-59 ml/min | | | | | ([facility]) Persistent | | | | | [...]
--- OUTSIDE RECORDS SUMMARY | ~2019-02-04 | XMS | Clinical Summary ---
Demographics + + + | Address | [address] | | | [place] [address] | + + + | Home Phone | | + + + | Preferred Language | Unknown | + + + | Marital Status | Single | + + + | Orthodoxy Affiliation | Unknown | + + + [...] Team Providers + +------+ + | Care Food Vendor Name | Role | Phone | + +------+ + PCP | Unavailable | + +------+ + Source Comments DERRICK is fully live on both [facility] and [facility] Allergies Not on File Medications Not on [...] | MEDICA | xxxxxxxxxx | 09/03/18 | [phone] | [address] | Medica | | | RE A & | | 99-Pre | 1 | [phone] | re | | | B | | sent | | [place] | | | | | | | | [phone] | | + +--------+ +--------+ + +--------+ | [place] | BLUE | xxxxxxxxx | 04/07/18 | [phone] | [address] | PPO | | | CROSS | | 85-Pre | 8 | [phone] | | | | [place] | | sent | | [place], | | | | [place] | | | | [place] [address] | | + +--------+ +--------+ + +--------+ [...] | | al/Fam | | 1936 | [phone] | [address] | | | [place] | | | [address] (Home) | [place] [address] | + +--------+ +--------+ + +"
--- OUTSIDE RECORDS SUMMARY | ~2019-02-04 | XMS | Clinical Summary ---
Demographics + + + | Address | [address] | | | [place] [address] | + + + | Home Phone | | + + + | Preferred Language | Unknown | + + + | Marital Status | | + + + | Protestant Affiliation | 1013 | + + + | Race | Unknown | + + + | Ethnic Group | Unknown | + + + Author + + + | Author | [facility] (Historical as of | | | 11-19-18) | + + + | Organization | [facility] (Historical as of | | | 11-19-18) | + + + | Address | Unknown | + + + | Phone | Unavailable | + + + Support + + +---------+ + | Name | Relationship | Address | Phone | + + +---------+ + | Guillermina Clark | ECON | Unknown | | + + +---------+ + | Anthony Clark | ECON | Unknown | | + + +---------+ + Care Team Providers + +------+ + | Care Marketing Performance Analyst Name | Role | Phone | + +------+ + | Darion Cohn MD | PP | | + +------+ + Allergies + [...] | | | | | | increases | + + + + + + | Metoclopramide | Other (See Comments) | Medium | 12/01/19 | Restless leg | | | | | 13 | | + + + + + + Current Medications + + +--------+---------+------+------+-------+ | Prescription | Sig. | Disp. | Refills | Star | End | Statu | | | | | | t | Date | s | | | | | | Date | | | + + +--------+---------+------+------+-------+ | MAGNESIUM PO | Take 64 mg by mouth | | | | | Activ | | | 3 (three) times | | | | | e | | | daily. | | | | | | + + +--------+---------+------+------+-------+ | Cholecalciferol | Take 5,000 Units by | | | | | Activ | | (VITAMIN D3) 1000 | mouth nightly. | | | | | e | | UNITS capsule | | | | | | | + + +--------+---------+------+------+-------+ | sertraline | Take 100 mg by mouth | | | | | Activ | | (ZOLOFT) 100 MG | daily. | | | | | e | | tablet | | | | | | | + + +--------+---------+------+------+-------+ | pramipexole | Take 0.5 mg by mouth | | | | | Activ | | (MIRAPEX) 0.5 MG | nightly. Take two | | | | | e | | tablet | tablets nightly. | | | | | | + + +--------+---------+------+------+-------+ | allopurinol | Take 100 mg by mouth | | | | | Activ | | (ZYLOPRIM) 100 MG | daily. | | | | | e | | tablet | | | | | | | + + +--------+---------+------+------+-------+ | atorvastatin | Take 80 mg by mouth | | | | | Activ | | (LIPITOR) 80 MG | daily. | | | | | e | | tablet | | | | | | | + + +--------+---------+------+------+-------+ | docusate sodium | Take 100 mg by mouth | | | | | Activ | | (COLACE) 100 MG | 2 (two) times | | | | | e | | capsule | daily. | | | | | | + + +--------+---------+------+------+-------+ | ferrous sulfate, | Take 65 mg of iron | | | | | Activ | | 65 FE, 324 (65 FE) | by mouth 3 (three) | | | | | e | | MG EC tablet | times daily with | | | | | | | | meals. | | | | | | + + +--------+---------+------+------+-------+ | | Take 1 tablet by | 180 | 0 | 11/2 | | Activ | | HYDROcodone-acetamin | mouth every 4 (four) | tablet | | / | | e | | ophen (NORCO) 10-325 | hours as needed for | | | 16 | | | | MG per | Pain. | | | | | | | tabletIndications: | | | | | | | | Lumbar facet | | | | | | | | arthropathy, DDD | | | | | | | | (degenerative disc | | | | | | | | disease), lumbar, | | | | | | | | Lumbar stenosis, | | | | | | | | Sacro-iliac pain, Hx | | | | | | | | of halfway use of | | | | | | | | blood thinners, CKD | | | | | | | | (chronic kidney | | | | | | | | disease), stage III | | | | | | | | (HCC), Cervicalgia, | | | | | | | | Fusion of spine of | | | | | | | | cervical region, | | | | | | | | Spondylosis of | | | | | | | | cervical region | | | | | | | | without myelopathy | | | | | | | | or radiculopathy, | | | | | | | | 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 | | | | | e | | MCG tablet | | | | | | | + + +--------+---------+------+------+-------+ | ranitidine | Take 150 mg by mouth | | | 07/0 | | Activ | | (ZANTAC) 150 MG | daily. | | | 6/20 | | e | | tablet | | | | 18 | | | + + +--------+---------+------+------+-------+ | folic acid | Take 1 mg by mouth | | | 12/0 | | Activ | | (FOLVITE) 1 MG | daily. | | | 820 | | e | | tablet | | | | 18 | | | + + +--------+---------+------+------+-------+ | acetaminophen | Take 650 mg by mouth | | | | | Activ | | (TYLENOL) 325 MG | as needed. | | | | | e | | tablet | | | | | | | + + +--------+---------+------+------+-------+ | gabapentin | Take 300 mg by mouth | | | 01/3 | | Activ | | (NEURONTIN) 300 MG | 2 (two) times | | | 0/20 | | e | | capsule | daily. | | | 19 | | | + + +--------+---------+------+------+-------+ | levothyroxine | Take 112 mcg by | | | | | Activ | | (SYNTHROID) 100 MCG | mouth every morning | | | | | e | | tablet | before breakfast. | | | | | | + + +--------+---------+------+------+-------+ | aspirin 81 MG | Take 1 tablet by | 30 | 11 | 07/05 | | Activ | | tablet | mouth daily. | tablet | | 0/20 | | e | | | | | | 19 | | | + + +--------+---------+------+------+-------+ | digoxin (LANOXIN) | Take 1 tablet by | 10 | 11 | 04/2 | 07/04 | Activ | | 0.125 MG tablet | mouth every 3 | tablet | | 0/20 | 12/23 | e | | | (three) days. | | | 19 | 20 | | + + +--------+---------+------+------+-------+ | metoprolol | Take 1 tablet by | 60 | 11 | 08/03 | 08/03 | Activ | | (TOPROL-XL) 25 MG 24 | mouth 2 (two) times | tablet | | 09/22 | 08/22 | e | | hr | daily. | | | 19 | 20 | | | tabletIndications: | | | | | | | | Essential | | | | | | | | hypertension with | | | | | | | | goal blood pressure | | | | | | | | less than 130/80 | | | | | | | + + +--------+---------+------+------+-------+ | amiodarone | Take 1 tablet by | 30 | 11 | 08/03 | 08/03 | Activ | | (PACERONE) 200 MG | mouth daily. | tablet | | 6/20 | 08/22 | e | | tablet | | | | 19 | 20 | | + + +--------+---------+------+------+-------+ | torsemide | Take 0.5 tablets by | 30 | 11 | 05/1 | | Activ | | (DEMADEX) 20 MG | mouth daily. | tablet | | 6/20 | | e | | tablet | | | | 19 | | | + + +--------+---------+------+------+-------+ | potassium chloride | Take 1 tablet by | 30 | 11 | 05/1 | 05/1 | Activ | | SA (K-DUR) 10 MEQ | mouth daily. | tablet | | 6/20 | 5/20 | e | | tabletIndications: | | | | 19 | 20 | | | Essential | | | | | | | | hypertension with | | | | | | | | goal blood pressure | | | | | | | | less than 130/80 | | | | | | | + + +--------+---------+------+------+-------+ | apixaban (ELIQUIS) | Take 1 tablet by | 60 | 11 | 05/1 | | Activ | | 2.5 MG tablet | mouth 2 (two) times | tablet | | 6/20 | | e | | | daily. | | | 19 | | | + + +--------+---------+------+------+-------+ Active Problems + + + | Problem | Noted Date | + + + | Acute kidney injury superimposed on chronic kidney disease (HCC) | 08/30/2018 | + + + | Bilateral leg edema | 08/30/2018 | + + + | Electrolyte imbalance risk | 08/30/2018 | + + + | Pacemaker | 07/12/2018 [...] | + + + + + | Typical atrial flutter (HCC) | 10/05/2017 | + + + + [...] | today in the office was 2.7. Informed consent was obtained and | | will arrange cardioversion procedure with Dr. Hernandez tomorrow | + + + + + | Mitral regurgitation | 08/01/2017 | + + + + + | Overview: Moderate mitral regurgitation and moderate to | | severe TR were seen on an echocardiogram. Increase hydralazine to | | 25 mg twice a day for afterload reduction | + + + + + | Tricuspid regurgitation | 08/01/2017 | + + + + + | Overview: Formatting of this note may be different from the | | original. Moderate to severe tricuspid regurgitation seen on an | | echocardiogram. An echo in May 2017 revealed the | | followin. Overall left ventricular systolic function is normal | | with, an EF of 40 %. 2. Restrictive LV diastolic filling | | pattern, consistent with elevated LA pressure and severe | | dysfunction (grade III). 3. There is mild aortic stenosis | | present. 4. Moderate mitral regurgitation is present. 5. Moderate | | to severe tricuspid regurgitation present. 6. There is equivocal | | severe pulmonary hypertension. will add low-dose afterload | | reduction with hydralazine. Not an CARMEN or ARB candidate because | | of renal failure. Add intravenous diuresis. | + + + + + | Acquired hypothyroidism | 08/01/2017 | + + + + + | Overview: A recent TSH was 7.2, despite Synthroid 0.025 g per | | day. The Synthroid will be increased to 0.05 mg per day. | + + + + + | Bilateral carotid artery stenosis | 08/01/2017 | + + + + + | Overview: Bilateral carotid stenosis of 50-69% noted on | | ultrasound July 2017. On aspirin. Asymptomatic. | + + + + + | Depression | 06/10/2016 | + + + | Fusion of spine of cervical region | 10/30/2015 | + + + | Cervicalgia | 10/23/2015 | + + + | Scoliosis | 10/23/2015 | + + + | Chronic combined systolic and diastolic congestive heart failure | 12/23/2014 | | (HCC) | | + + + + + [...] + + + + | Pulmonary hypertension (HCC) | 12/23/2014 | + + + + [...] moderate | | right atrial enlargement. | | | | | + + + + + | Sinus node dysfunction (HCC) | 12/22/2014 | + + + + [...] consistent with atrial flutter with rapid ventricular responseThe | | pacemaker was programmed into a VVI pacing mode today with a | | lower rate of 60 and hysteresis of 50 bpm to minimize ventricular | | pacing. She has been pacing more in the ventricle than | | necessary, so that may be contributing to her LV systolic | | function deterioration. A rate control strategy will be followed | | for atrial fibrillation and flutter in the future. Amiodarone | | will be stopped. | + + + + + | Paroxysmal atrial fibrillation (HCC) | 12/22/2014 | + + + + + | Overview: Atrial fibrillation was first diagnosed 2-/2 | | years ago. Amiodarone was added on February 23, 2017 (200 mg per | | day). She is anticoagulated with warfarin . [...] rhythm today. 200 mg per | | day. | + + + + + | Lumbar facet arthropathy | 10/17/2014 | + + + + + | Last Assessment & Plan: Please see discussion under lumbar | | stenosis | + + + + + | DDD (degenerative disc disease), lumbar | 10/17/2014 | + + + + + | Last Assessment & Plan: Please see discussion under lumbar | | stenosis | + + + + + | Lumbar stenosis | 09/13/2014 | + + + + + | Last Assessment & Plan: This patient symptoms are consistent | | with neurogenic claudication. Her lumbar MRI that showed severe | | lumbar stenosis at L4-5 and moderate-severe L2-3, moderate L3-4. | | She saw Dr. roca for her current complaints of low back pain | | with bilateral lower extremity weakness. She does have symptoms | | consistent with neurogenic claudication. Dr. roca felt that she | | was at high risk for surgery due to her medical history. | | Encouraged her to try interventional treatment. We will plan on | | right and left L5 transforaminal epidural steroid injections | | under fluoroscopic guidance.Plan, alternatives, risks and | | potential benefits of the procedure were explained to the patient | | in great detail. The patient understands that there is no | | guarantee they will get pain relief with this procedure. They | | also understand that if they do get pain relief that there is no | | way to know how long it will last. They also understand there is | | a risk to the procedure itself which includes but are not | | limited to infection, abscess, hematoma, nerve damage, paraplegia | | or quadriplegia, increased pain, spinal headache, stroke, and | | side effects from the medications themselves. The patient wishes | | to proceed. | + + + + + | RIOGBERTO (obstructive sleep apnea) | 09/06/2013 | + + + + + | Overview: Followed by Dr. Snow. Treated with CPAP and 2 L | | of oxygen nocturnally. A continuous nocturnal oxygen test was | | recently ordered by Dr. Snow. | + + + + + | Ischemia of foot | 03/01/2013 | + + + + + | Last Assessment & Plan: This patient had transmetatarsal | | amputations of all digits of her right foot for ischemic | | gangrene. This has healed well and she is doing well from that | | standpoint. The patient also has an ulcer of the distal end of | | her second toe of the left foot which is chronic and painful. She | | does not have large vessel insufficiency to her left leg but | | appears to have some small vessel ischemia in her left foot. To | | try and improve the circulation to decrease her pain and promote | | healing in her left foot, I performed a series of 3 lumbar | | sympathetic blocks at the request of her vascular surgeon. These | | have not produced a great deal of change in the patient's pain or | | the appearance of her left foot. She reports about 20% reduction | | in pain but she still is sloughing some skin offer for distal | | first 2 toes of her left foot. At this point I don't feel that | | further sympathetic blocks are likely to be effective in | | improving circulation in this patient's foot. I am therefore | | referring her back to Dr. Sesay for further evaluation | | and treatment. | + + + + + | Toe amputation status | 12/14/2012 | + + + | Gait disturbance | 11/16/2012 | + + + | Anemia | 11/16/2012 | + + + | Stress-induced cardiomyopathy | [...] | 11/02/2012 | + + + | Seizure (HCC) | 11/01/2012 | + + + | Cervical radicular pain | 07/28/2012 | + + + + + | Last Assessment & Plan: Please see discussion under cervical | | facet hypertrophy | + + + + + | DDD (degenerative disc disease), cervical | 07/28/2012 | + + + + + | Last Assessment & Plan: Please see discussion under cervical | | facet hypertrophy | + + + + + | HNP (herniated nucleus pulposus), cervical | 07/28/2012 | + + + + + | Last Assessment & Plan: Please see discussion under cervical | | facet hypertrophy | + + + + + | Arthropathy of cervical facet joint | 07/28/2012 | + + + + + | Last Assessment & Plan: In summary, this is a 76 year old | | female with 2 previous cervical surgeries resulting in an | | anterior fusion at C3-4. Recently she developed left sided neck | | pain that travels to her left shoulder and occasional pain to her | | left forearm. Her updated cervical MRI showed anterior fusion | | at C3-4 with large disk protrusion at C5-6 and C6-7 combined with | | degenerative changes causing severe central stenosis and | | moderate foraminal narrowing. Her symptoms are most likely due | | to the stenosis versus facet hypertrophy. She has tried some | | conservative measures. She underwent a C7-T1 cervical epidural | | steroid injection which did not improve her symptoms. We | | discussed other options, including physical therapy, surgical | | referral versus facet diagnostic median branch blocks and if | | efficacious radiofrequency neurotomies. Currently, she will go | | forward with physical therapy but she would also like to see one | | of the surgeons. Will make both referrals for her. If she fails | | to receive improvement and if surgery is not considered then we | | will consider diagnostic median branch blocks. Probably plan for | | left C4, C5, C6 diagnostic median branch blocks under | | fluoroscopic guidance.Plan, alternatives, risks, and potential | | benefits of the procedure were explained to the patient in great | | detail. They understand there is no guarantee they will get pain | | relief with these procedure. They also understand that if they | | get pain relief with the diagnostic blocks that it will likely | | last only a few hours. They understand that in order to get more | | prolonged pain relief but not permanent pain relief they would | | have to undergo radiofrequency neurotomies. They also understand | | that this procedure is not a long permanent cure for their pain | | and if it worked it would likely give them pain relief for | | approximately 6 to 12 months. They also understand that there are | | risks to the procedure itself which include but are not limited | | to infection, abscess, hematoma, nerve damage, increased pain, | | nerve damage and dysfunction to their legs or arms, and side | | effects or medications. They wish to proceed. | + + + + + | Sacro-iliac pain | 07/28/2012 | + + + + + | Last Assessment & Plan: This patient has tenderness along her | | sacroiliac joint upon palpation which is worsened with the | | maneuvers. This is consistent with sacroiliitis. She would be a | | candidate for a steroid injection in this region if her symptoms | | worsen. | + + + + + | Greater trochanteric bursitis | 07/28/2012 | + + + + + | Last Assessment & Plan: This patient also has tenderness | | along her greater trochanter her bursa region which is consistent | | with bursitis. This patient would be a candidate for a steroid | | injection in this region if her symptoms worsen. | + + + + + | CKD (chronic kidney disease) stage 4, GFR 15-29 ml/min ([facility]) | 01/14/2011 | + + + | Essential hypertension with goal blood pressure less than 130/80 | 01/14/2011 | + + + + + | Overview: Her blood pressure has been low. Continue off of | | hydralazine and isosorbide. Try and increase metoprolol back to | | 25 mg twice a day. | + + + + + | Vitamin D deficiency | 01/14/2011 | + + + | Hypomagnesemia | 01/14/2011 | + + + | Persistent proteinuria | 01/14/2011 | + + + | Incontinence of urine | 01/14/2011 | + + + + + | Overview: Stress Incontinence. Wears pad. Chronic. | + + Resolved Problems + + + + | Problem | Noted | Resolved | | | Date | Date | + + + + | Tachyarrhythmia | 09/12/19 | | | | 18 | 8 | + + + + | Mild aortic stenosis | 08/02/19 | | | | 18 | 8 | + + + + + + | Overview: Mild noted in May 2017. Normal LV systolic | | function. | + + + + + + | Chest pain, unspecified | 06/11/19 | | | | 17 | 8 | + + + + | Atrial fibrillation, unspecified | 02/20/20 | | | | 15 | 8 | + + + + | Chest pain | 01/31/20 | | | | 15 | 8 | + + + + | Ischemic ulcer of foot (HCC) | 03/01/20 | | | | 13 | 9 | + + + + + + | Last Assessment & Plan: This patient had transmetatarsal | | amputations of all digits of her right foot for ischemic | | gangrene. This has healed well and she is doing well from that | | standpoint. The patient also has an ulcer of the distal end of | | her second toe of the left foot which is chronic and painful. She | | does not have a large vessel insufficiency to her left leg but | | appears to have some small vessel ischemia in her left foot. To | | try and improve the circulation to decrease her pain and promote | | healing in her left foot, her vascular surgeon has requested that | | I perform left lumbar sympathetic blocks. As she has failed | | other conservative measures she is a candidate for a series of 3 | | lumbar sympathetic blocks on the left side.Plan, alternatives, | | risks and potential benefits of the procedure were explained to | | the patient in great detail. The patient understands that there | | is no guarantee they will get pain relief with this procedure. | | They also understand that if they do get pain relief that there | | is no way to know how long it will last. They also understand | | there is procedure itself which include but are not limited to | | infection, abscess, hematoma, nerve damage, paraplegia, increased | | pain, stroke, and side effects from the medications themselves. | | The patient wishes to proceed. | + + + + + + | Other primary cardiomyopathies | 02/09/20 | | | | 13 | 8 | + + + + | Bacterial pneumonia, unspecified | 11/17/19 | | | | 13 | 6 | + + + + | Urinary tract infection, site not specified | 11/17/19 | | | | 13 | 3 | + + + + | Hypernatremia | 11/14/19 | | | | 13 | 3 | + + + + | Cardiogenic shock (HCC) | 11/12/19 | | | | 13 | 3 | + + + + | Hyperkalemia | 11/05/19 | | | | 13 | 3 | + + + + | Patient requiring acute dialysis | 11/05/19 | | | | 13 | 3 | + + + + | CASEY (acute kidney injury) | 11/04/19 | | | | 13 | 3 | + + + + | Subdural hematoma, nontraumatic | 11/02/19 | | | | 13 | 6 | + + + + | Respiratory insufficiency | 11/02/19 | | | | 13 | 3 | + + + + Encounters +--------+ + + + + | Date | Type | Specialty | Care Team | Description | +--------+ + + + + | 11/15/ | Documentati | | Richard | Vimal (ED report and | | 2018 | on Only | | MARY Burton | patient note | | | | | | 10/19/18) | +--------+ + + + + | 11/04/ | Documentati | Yany Ramos | Na Only (10/25/18) | | 2019 | on Only | | MARY Burton | | +--------+ + + + + from Last 3 Months Immunizations + + + + | Name | Dates Previously Given | Next Due | + + + + | INFLUENZA | 01/31/2015 | | | QUADRIVALENT 36+ MO | | | | PRESERV FREE | | | + + + + Family History + + +------+ + | Medical History | Relation | Name | Comments | + + +------+ + | Cancer [...] Comments | + +------+ + + | Father [...] HEART | + +------+ + + | Sister | | Alive | POLYCYSTIC OVARY SYNDROME | + +------+ + + Social History + +-------+ +--------+ [...] | | + +---+---+---+ + + | Tobacco Cessation: Counseling Given: No | | Comments: quit in 2000 | + [...] on file | | + + + Last Filed Vital Signs + + + + | Vital Sign | Reading | Time Taken | + + + + | Blood Pressure | 106/62 | 08/30/2018 10:39 AM PDT | + + + + | Pulse | 80 | 08/30/2018 10:39 AM PDT | + + + + | Temperature | 36.6 C (97.8 F) | 07/23/2018 11:27 AM PDT | + + + + | Respiratory Rate | 16 | 07/23/2018 11:27 AM PDT | + + + + | Oxygen Saturation | 95% | 08/30/2018 10:39 AM PDT | + + + + | Inhaled Oxygen | - | - | | Concentration | | | + + + + | Weight | 71.5 kg (157 lb 9.6 | 08/30/2018 10:39 AM PDT | | | oz) | | + + + + | Height | 152.4 cm (5') | 08/30/2018 10:39 AM PDT | + + + + | Body Mass Index | 30.78 | 08/30/2018 10:39 AM PDT | + + + + Plan of Treatment +--------+ + + + + | Date | Type | Specialty | Care Team | Description | +--------+ + + + + | 02/21/ | Documentati | | | | | 2019 | on Only | | | | +--------+ + + + + | 05/23/ | Documentati | | | | | 2019 | on Only | | | | +--------+ + + + + + + + + + | Health Maintenance | Due Date | Last Done | Comments | + + + + + | Vaccine: | | | | | Dtap/Tdap/Td (1 - | 3 | | | | Tdap) | | | | + + + + + | Vaccine: Zoster (1 | | | | | of 2) | 4 | | | + + + + + | DEXA SCAN SCREENING | | | | | | 9 | | | + + + + + | Vaccine: | | | | | Pneumococcal 65+ | 9 | | | | Low/Medium Risk (1 | | | | | of 2 - PCV13) | | | | + + + + + | Vaccine: Influenza | | 01/31/2015 | | | (#1) | 9 | | | + + + + + Implants + +--------+------+ +--------+--------+--------+ | Implanted | Type | Area | Manufacture | Device | Expira | Model | | | | | r | | tion | / | | | | | | Identi | Date | Serial | | | | | | fier | | / Lot | + +--------+------+ +--------+--------+--------+ | Pacer-08/02/2017Implanted: | Cardia | | | | | [id number] | | Qty: 1 on 08/02/2017 by | c | | | | | | | Myron Hernandez MD | Rhythm | | | | | /[id number] | | | | | | | | 41 / | | | Manage | | | | | | | | ment | | | | | | + +--------+------+ +--------+--------+--------+ | Ra Lead-08/02/2017Implanted: | Cardia | | | | | [id number] | | Qty: 1 on 08/02/2017 by | c | | | | | -46 | | Myron Hernandez MD | Rhythm | | | | | /[id number] | | | | | | | | [id number] / | | | Manage | | | | | | | | ment | | | | | | + +--------+------+ +--------+--------+--------+ | Rv Lead-08/02/2017Implanted: | Cardia | | | | | [id number] | | Qty: 1 on 08/02/2017 by | c | | | | | -52 | | Myron Hernandez MD | Rhythm | | | | | /[id number] | | | | | | | | [id number] / | | | Manage | | | | | | | | ment | | | | | | + +--------+------+ +--------+--------+--------+ Results Not on filefrom Last 3 Months Insurance + +--------+ +------+-------+ + | Payer | Benefi | Subscriber | Type | Phone | Address | | | t Plan | ID | | | | | | / | | | | | | | Group | | | | | + +--------+ +------+-------+ + | MEDICARE | MEDICA | [id number] | | | [address] | | | RE | | | | [address] [address] | | | IP-OP | | | | | + +--------+ +------+-------+ + | PREMERA | PREMER | [id number] | | | [address] [address] | | | A BLUE | | | | [place] | | | [place] | | | | [phone] | | | FED | | | | | | | PPO | | | | | + +--------+ +------+-------+ + + +--------+ +--------+ + + | Guarantor Name | Accoun | Relation to | Date | Phone | Billing Address | | | t Type | Patient | of | | | | | | | | | | + +--------+ +--------+ + + | PAULA CLARK | Person | Self [birth year] | Work: | [employer] | | IVANNA | al/Fam | | [phone] | [phone] [address] | | | duyen | | | [phone]: | [place] | | | | | | | [address] | | | | | | [phone] | | | | | [phone] | | [phone] +--------+ +--------+ + +"
--- OUTSIDE RECORDS SUMMARY | ~2019-02-04 | XMS | Clinical Summary ---
Demographics + + + | Address | [address] | | | [place] [address] | + + + | Home Phone | | + + + | Preferred Language | Unknown | + + + | Marital Status | | + + + | Latter Day Affiliation | 1013 | + + + | Race | Unknown | + + + | Ethnic Group | Unknown | + + + Author + + + | Author | [facility] (Historical as of | | | 11-19-18) | + + + | Organization | [facility] (Historical as of | | | 11-19-18) [...] Team Providers + +------+ + | Care Lines Tender Name | Role | Phone | + [...] | | | | | | of mcc use of | | | | | [...] | + + + + + | RIGOBERTO (obstructive sleep apnea) | 09/06/2013 | + [...] kidney disease) stage 4, GFR 15-29 ml/min ([facility]) | 01/14/2011 | + + + | [...] | Cardia | | | | | [id number] | | Qty: 1 on 08/02/2017 by | c | | | | | | | Myron Hernandez MD | Rhythm | | | | | /[id number] | | | | | | | [...] +------+-------+ + | MEDICARE | MEDICA | [id number] | | | [address] | | | RE | | | | [address] [address] | | | IP-OP | | | | | + +--------+ +------+-------+ + | PREMERA | PREMER | [id number] | | | [address] [address] | | | A BLUE | | | | [place] | | | CROSS | | | | [address] | | | FED | | | [...] IVANNA | al/Fam | | 1936 | [phone] | [address] | | | [place] | | | [phone]: | [place] | | | | | | | [address] | | | | | | [phone] | | | | | | [phone] | | + +--------+ +--------+ + +"
--- OUTSIDE RECORDS SUMMARY | ~2019-02-04 | XMS | Encounter Summary ---
Demographics + + + | Address | [address] | | | [place] [address] | + + + | Home Phone | | + + + | Preferred Language | Unknown | + + + | Marital Status | Single | + + + | Jehovah'S Witness Affiliation | Unknown | + + + | Race | Unknown | + + + | Ethnic Group | Other Race | + + + Author + + + | Author | [facility] | + + + | Organization | [facility] | + + + | Address | Unknown | + + + | Phone | Unavailable | + + + Support + + +---------+ + | Name | Relationship | Address | Phone | + + +---------+ + | None None | ECON | Unknown | Unavailable | + + +---------+ + Care Team Providers + +------+ + | Care Enamel Burner Name | Role | Phone | + +------+ + PCP | Unavailable | + +------+ + Encounter Details +--------+ + + + + | Date | Type | Department | Care Team | Description | +--------+ + + + + | 12/20/ | Results | Registration [address]181 | Other, Faculty | | | 2006 | Only | KUSHAL Hoffman | [phone] | | | | | Rd Mailcode: RPB07 | | | | | | [place], [place] | | | | | | [address] | | | | | | [phone] | | | +--------+ + + + [...]
--- OUTSIDE RECORDS SUMMARY | ~2019-02-04 | XMS | Encounter Summary ---
Demographics + + + | Address | [address] | | | [place] [address] | + + + | Home Phone [...] Team Providers + +------+ + | Care Hr Advisor Name | Role | Phone | + +------+ + | Darion Cohn DO | PCP | | + +------+ + Encounter Details +--------+---------+ + + + | Date | Type | Department | Care Team | Description | +--------+---------+ + + + | 12/06/ | Office | [facility] | Angel Alcantara MD | CKD (chronic kidney | | 2019 | Visit | [facility] [place] | [address] [place] | disease) stage 3, | | | | [address] [place] | [address] [place], [place] | GFR 30-59 ml/min | | | | [address] [place], [place] | [address] | (HCC) (Primary Dx); | | | | [address] | | Persistent | | | | [phone] | | proteinuria; | | | | [...] will have RFP, Magnesium, CBC, Urine total yyqbgoh-gb-qnaxkxisge ratio done before s he comes back [...] the d ischarge summary. She lives in [place], [place] with her in their own home, 60+ years, daughter lives in [place], [place]. She was a industrial arts public school teacher. As in History of Present Illness & [...] 11/14/2012 LABIRON 40 04/09/2016 LABPROT 0.172 08/24/2018 [id number] 53 05/11/2017 Assessment: Ms. Ashley is a [...] will have RFP, Magnesium, CBC, Urine total qgovlzb-jb-qjyxgtsjnu ratio done before s he comes back [...] | | | | | [place] | | | | | | [address] | | | | | | | [...] kidney disease) stage 3, GFR 30-59 ml/min ([facility]) - Primary Chronic kidney | [...]
--- OUTSIDE RECORDS SUMMARY | ~2019-02-04 | XMS | Encounter Summary ---
Demographics + + + | Address | [address] | | | [place] [address] | + + + | Home Phone | | + + + | Preferred Language | Unknown | + + + | Marital Status | | + + + | Temple Affiliation | 1013 | + + + | Race | Unknown | + + + | Ethnic Group | Unknown | + + + Author + + + | Author | [facility] (Historical as of | | | 11-19-18) | + + + | Organization | [facility] (Historical as of | | | 11-19-18) [...] Team Providers + +------+ + | Care Frame Operator Name | Role | Phone | [...] 10/19/18) | | | | [place] [address] | | | | | | [phone] | | | +--------+ + + + [...]
--- OUTSIDE RECORDS SUMMARY | ~2019-02-04 | XMS | Clinical Summary ---
Demographics + + + | Address | [address] | | | [place] [address] | + + + | Home Phone | | + + + | Preferred Language | Unknown | + + + | Marital Status | | + + + | Pentecostal Affiliation | 1013 | + + + | Race | Unknown | + + + | Ethnic Group | Unknown | + + + Author + + + | Author | [facility] (Historical as of | | | 11-19-18) | + + + | Organization | [facility] (Historical as of | | | 11-19-18) [...] Team Providers + +------+ + | Care Duct Layer Supervisor Name | Role | Phone | [...] | | | | | | of jail use of | | | | | [...] kidney disease) stage 4, GFR 15-29 ml/min ([facility]) | 01/14/2011 | + + + [...] | Cardia | | | | | [id number] | | Qty: 1 on 08/02/2017 by | c | | | | | | | Myron Hernandez MD | Rhythm | | | | | /[id number] | | | | | | | [...] +------+-------+ + | MEDICARE | MEDICA | [id number] | | | [address] | | | RE | | | | [address] [address] | | | IP-OP | | | | | + +--------+ +------+-------+ + | PREMERA | PREMER | [id number] | | | [address] [address] | | | A BLUE | | | | [place] | | | CROSS | | | | [address] | | | FED | | | [...] IVANNA | al/Fam | | 1936 | [phone] | [address] | | | [place] | | | [phone]: | [place] | | | | | | | [address] | | | | | | [phone] | | | | | | [phone] | | + +--------+ +--------+ + +"
--- OUTSIDE RECORDS SUMMARY | ~2019-02-04 | XMS | Encounter Summary ---
Demographics + + + | Address | [address] | | | [place] [address] | + + + | Home Phone | | + + + | Preferred Language | Unknown | + + + | Marital Status | | + + + | Scientology Affiliation | 1013 | + + + | Race | Unknown | + + + | Ethnic Group | Unknown | + + + Author + + + | Author | [facility] (Historical as of | | | 11-19-18) | + + + | Organization | [facility] (Historical as of | | | 11-19-18) [...] Team Providers + +------+ + | Care Assistant To The Vice President Name | Role | Phone | + [...] | | | | | [place] [address] | | | | | | [phone] | | | +--------+ + + + [...]
--- OUTSIDE RECORDS SUMMARY | ~2019-02-04 | XMS | Clinical Summary ---
Demographics + + + | Address | [address] | | | [place] [address] | + + + | Home Phone | | + + + | Preferred Language | Unknown | + + + | Marital Status | | + + + | Mandaeism Affiliation | 1013 | + + + | Race | Unknown | + + + | Ethnic Group | Unknown | + + + Author + + + | Author | [facility] | | | and [place] | + + + | Organization | [facility] | | [...] Team Providers + +------+ + | Care Rural Health Consultant Name | Role | Phone | + [...] | | | | | ([facility]) (Primary Dx); | | | | | | Persistent | | | | | | proteinuria; | | | | | | Hypomagnesemia; | | | | | | Electrolyte | | | | | | imbalance risk; | | | | | | Secondary | | | | | | hyperparathyroidism | | | | | | ([facility]) | +--------+ + + + + [...] | | | | | ([facility]); Persistent | | | | | | proteinuria | +--------+ + + + + | 11/30/ | Orders Only | | Osmin Poole, | Persistent | | 2018 | | | Inker | proteinuria; Chronic | | | | | | kidney disease, | | | | | | stage IV (severe) | | | | | | ([facility]); Other | | | | | [...] | Visit | | MD | fibrillation ([facility]); | | | | | | [...] | | | | | | dysfunction ([facility]); | | | | | | [...] | | | | | [place], [place] | | | | | | [address] | | | | | | | [...] | | LAB | | | | [facility] | | [facility] | | | | [address];[place] [address] | | LABORATORY | | + + + + + + + + | Specimen | + + | Urine | + + + + + + + | Performing | Address | City/State/Zipcode | Phone Number | | Organization | | | | + + + + + | REFERENCE LAB | [address] | [place] [address] | [phone] | | [facility] | Bl[address] | | | | LABORATORY | | | | + + + + + | REFERENCE LAB | [address] | [place] [address] | | | [facility] | Bl[address] | [...] | | | Morphology | performed at [facility];[address] | | LAB | | | | [place] | | [facility] | | | | [address];[place] [address] | | LABORATORY | | | | | | | | + + + + + + + + | Specimen | + + | Blood | + + + + + + + | Performing | Address | City/State/Zipcode | Phone Number | | Organization | | | | + + + + + | REFERENCE LAB | [address] | [place] [address] | [phone] | | [facility] | Blvd[address] | | | | LABORATORY | | | | + + + + + | REFERENCE LAB | [address] | [place] [address] | | | [facility] | [address] | [...] REFERENCE | | | | performed at [facility];[address] | | LAB | | | | [place] | | [facility] | | | | Bl[address];[place] [address] | | LABORATORY | | + + + + + + + + | Specimen | + + | Blood | + + + + + + + | Performing | Address | City/State/Zipcode | Phone Number | | Organization | | | | + + + + + | REFERENCE LAB | [address] [place] [address] | [place] [address] | [phone] | | [facility] | Blvd[address] | | | | LABORATORY | | | | + + + + + | REFERENCE LAB | [address] [place] [address] | [place] [address] | | | [facility] | Blvd. | [...] REFERENCE | | | | performed at [facility];[address] | | LAB | | | | [place] | | [facility] | | | | Bl[address];[place] [address] | | LABORATORY | | + + + + + + + + | Specimen | + + | Blood | + + + + + + + | Performing | Address | City/State/Zipcode | Phone Number | | Organization | | | | + + + + + | REFERENCE LAB | [address] [place] [address] | [place] [address] | [phone] | | [facility] | Blvd[address] | | | | LABORATORY | | | | + + + + + | REFERENCE LAB | [address] [place] [address] | [place] [address] | | | [facility] | Blvd. | [...] REFERENCE | | | | performed at [facility];[address] | | LAB | | | | [facility] | | [facility] | | | | Bl[address];[place] [address] | | LABORATORY | | + + + + + + + + | Specimen | + + | Blood | + + + + + + + | Performing | Address | City/State/Zipcode | Phone Number | | Organization | | | | + + + + + | REFERENCE LAB | [address] | [place] [address] | [phone] | | [facility] | Blvd. | | | | LABORATORY | | | | + + + + + | REFERENCE LAB | [address] [place] [address] | [place] [address] | | | [facility] | Blvd. | [...] | | | | | performed at [facility];[address] | | | | | | [facility] | | | | | | Blvd;[place] [address] | | | | | | | | | | + + + + + + + + | Specimen | + + | Blood | + + + + + + + | Performing | Address | City/State/Zipcode | Phone Number | | Organization | | | | + + + + + | REFERENCE LAB | [address] | [place] [address] | [phone] | | [facility] | Blvd. | | | | LABORATORY | | | | + + + + + | REFERENCE LAB | [address] | [place] [address] | | | [facility] | Blvd. | | | [...] LAB | | | | performed at [facility];[address] | | [facility] | | | | [place] | | LABORATORY | | | | Blvd;[place] [address] | | | | | | | | | | + + + + + + + + | Specimen | + + | | + + + + + + + | Performing | Address | City/State/Zipcode | Phone Number | | Organization | | | | + + + + + | REFERENCE LAB | [address] [place] [address] | [place] [address] | [phone] | | [facility] | Blvd. | | | | LABORATORY | | | | + + + + + | REFERENCE LAB | [address] [place] [address] | [place] [address] | | | [facility] | Blvd. | [...] | | | urine | performed at [facility];[address] | | [facility] | | | | [facility] | | LABORATORY | | | | Blvd;[place] [address] | | | | | | | | | | + + + + + + + + | Specimen | + + | | + + + + + + + | Performing | Address | City/State/Zipcode | Phone Number | | Organization | | | | + + + + + | REFERENCE LAB | [address] [place] [address] | [place] [address] | [phone] | | [facility] | Blvd. | | | | LABORATORY | | | | + + + + + | REFERENCE LAB | [address] [place] [address] | [place] [id number] | | | [facility] | Blvd. | [...] +--------+ +---------+--------+ | MEDICARE | MEDICA | [id number] | 09/03/18 | [phone] | | Medica | | | RE | | 99-Pre | 5 | | re | | | PART A | | sent | | | | | | AND B | | | | | | + +--------+ +--------+ +---------+--------+ | MEDICARE | MEDICA | [id number] | 09/03/18 | [phone] | | Medica | | | RE | | 99-Pre | 5 | | re | | | PART A | | sent | | | | | | AND B | | | | | | + +--------+ +--------+ +---------+--------+ | BCBS | BCBS | [id number] | 04/13/18 | | | PPO | | | [place] | | 83-Pre | | | | | | L FEP | | sent | | | | + +--------+ +--------+ +---------+--------+ | BCBS | BCBS | [id number] | 04/13/18 | | | PPO | [...] Shasha | al/Fam | | 1935 | [phone] | [address] | | | [place] | | | 2 (Home) | [place] | | | | | | [phone] | [phone] | | | | | | 2 (Work) | | + +--------+ +--------+ + + | Gene Ashley | Person | Self | [birth year] | [address] | | Shasha | al/Fam | | [address] | [phone] | | | [place] | | | 2 (Home) | [place] | | | | | | | [address] | + +--------+ +--------+ + + Advance Directives Patient has advance care planning documents on file. For more information, please contact:[facility] [place] [address]"
--- OUTSIDE RECORDS SUMMARY | ~2019-02-04 | XMS | Encounter Summary ---
Demographics + + + | Address | [address] | | | [place] [address] | + + + | Home Phone | | + + + | Preferred Language | Unknown | + + + | Marital Status | Single | + + + | Advent Affiliation | Unknown | + + + | Race | Unknown | + + + | Ethnic Group | Other Race | + + + Author + + + | Author | [facility] | + + + | Organization | [facility] | + + + | Address | Unknown | + + + | Phone | Unavailable | + + + Support + + +---------+ + | Name | Relationship | Address | Phone | + + +---------+ + | None None | ECON | Unknown | Unavailable | + + +---------+ + Care Team Providers + +------+ + | Care Interrelated Special Education Teacher Name | Role | Phone | + +------+ + PCP | Unavailable | + +------+ + Encounter Details +--------+ + + + + | Date | Type | Department | Care Team | Description | +--------+ + + + + | 12/20/ | Results | Registration [address] | Other, Faculty | | | 2006 | Only | KUSHAL Hoffman | [phone] | | | | | Rd Mailcode: RPB[address] | | | | | | [place], [place] | | | | | | [address] | | | | | | [phone] | | | +--------+ + + + [...]
--- OUTSIDE RECORDS SUMMARY | ~2019-02-04 | XMS | Encounter Summary ---
Demographics + + + | Address | [address] | | | [place] [address] | + + + | Home Phone | | + + + | Preferred Language | Unknown | + + + | Marital Status | Single | + + + | Moravian Affiliation | Unknown | + + + | Race | Unknown | + + + | Ethnic Group | Other Race | + + + Author + + + | Author | [facility] | + + + | Organization | [facility] | + + + | Address | Unknown | + + + | Phone | Unavailable | + + + Support + + +---------+ + | Name | Relationship | Address | Phone | + + +---------+ + | None None | ECON | Unknown | Unavailable | + + +---------+ + Care Team Providers + +------+ + | Care Membership Solicitor Name | Role | Phone | + +------+ + PCP | Unavailable | + +------+ + Encounter Details +--------+ + + + + | Date | Type | Department | Care Team | Description | +--------+ + + + + | 12/21/ | Ancillary | Registration [address] | | | | 2006 | Registratio | [facility] | | | | | n | Rd Mailcode: RPB07 | | | | | | [place], [place] | | | | | | [address] | | | | | | [phone] | | | +--------+ + + + [...]
--- OUTSIDE RECORDS SUMMARY | ~2019-02-04 | XMS | Clinical Summary ---
Demographics + + + | Address | [address] | | | [place] [address] | + + + | Home Phone | | + + + | Preferred Language | Unknown | + + + | Marital Status | Single | + + + | Denominational Affiliation | Unknown | + + + [...] Team Providers + +------+ + | Care Calibration Specialist Name | Role | Phone | + +------+ + PCP | Unavailable | + +------+ + Source Comments DERRICK is fully live on both [facility] Ambulatory and [facility] InPatient.[facility] Allergies Not on File Medications Not on [...] | MEDICA | xxxxxxxxxx | 09/03/18 | [phone] | [address] | Medica | | | RE A & | | 99-Pre | 1 | [phone] | re | | | B | | sent | | [place] | | | | | | | | [address] | | + +--------+ +--------+ + +--------+ | [place] | BLUE | xxxxxxxxx | 04/07/18 | [phone] | [address] | PPO | | | CROSS | | 85-Pre | 8 | [address] | | | | [place] | | sent | | [place], | | | | L | | | | [place] [address] | | + +--------+ +--------+ + +--------+ [...] | | al/Fam | | 1936 | [phone] | [address] | | | [place] | | | 2 (Home) | [place] [address] | + +--------+ +--------+ + +"
--- OUTSIDE RECORDS SUMMARY | ~2019-02-04 | XMS | Encounter Summary ---
Demographics + + + | Address | [address] | | | [place] [address] | + + + | Home Phone | | + + + | Preferred Language | Unknown | + + + | Marital Status | | + + + | Scientologist Affiliation | 1013 | + + + | Race | Unknown | + + + | Ethnic Group | Unknown | + + + Author + + + | Author | [facility] | | | and [place] | + + + | Organization | 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 (home) [phone] (work): PRIMARY CARE: Darion Cohn DO Requesting [...] 10 mg daily Jacklyn Goins Medic al Pump Tender - 11/22/2018 1000 PDTAncillary MA Note- Electrophysiology [...] [place] | | | | | | [address] | | | | | | | [...]
--- OUTSIDE RECORDS SUMMARY | ~2019-02-04 | XMS | Clinical Summary ---
Demographics + + + | Address | [address] | | | [place] [address] | + + + | Home Phone | | + + + | Preferred Language | Unknown | + + + | Marital Status | | + + + | Presybeterian Affiliation | 1013 | + + + [...] Team Providers + +------+ + | Care Fisher Gill Net Name | Role | Phone | + [...] ml/min | | | | | | ([facility]) (Primary Dx); | | | | | | Persistent | | | | | | proteinuria; | | | | | | Hypomagnesemia; | | | | | | Electrolyte | | | | | | imbalance risk; | | | | | | Secondary | | | | | | hyperparathyroidism | | | | | | ([facility]) | +--------+ + + + + [...] ml/min | | | | | | ([facility]); Persistent | | | | | | proteinuria | +--------+ + + + + | 11/30/ | Orders Only | | Osmin Poole, | Persistent | | 2018 | | | Wire Galvanizer | proteinuria; Chronic | | | | | | kidney disease, | | | | | | stage IV (severe) | | | | | | ([facility]); Other | | | | | [...] | Visit | | MD | fibrillation ([facility]); | | | | | | [...] | | | | | | dysfunction ([facility]); | | | | | | [...] | | | | | Diego [place], [place] | | | | | | [address] | | | | | | | [...] | | LAB | | | | [facility] | | [facility] [address] | | [address];[place] [address] | | LABORATORY | | + + + + + + + + | Specimen | + + | Urine | + + + + + + + | Performing | Address | City/State/Zipcode | Phone Number | | Organization | | | | + + + + + | REFERENCE LAB | [address] | [place] [address] | [phone] | | [facility] [address] | | | | LABORATORY | | | | + + + + + | REFERENCE LAB | [address] | [place] [address] | | | [facility] | [address] | [...] | | | Morphology | performed at [facility];[address] | | LAB | | | | [place] | | [facility];[place] [address] | | LABORATORY | | | | | | | | + + + + + + + + | Specimen | + + | Blood | + + + + + + + | Performing | Address | City/State/Zipcode | Phone Number | | Organization | | | | + + + + + | REFERENCE LAB | [address] | [place] [address] | [phone] | | [facility] | [address] | | | | LABORATORY | | | | + + + + + | REFERENCE LAB | [address] | [place] [address] | | | [facility] | [address] | [...] REFERENCE | | | | performed at [facility];[address] | | LAB | | | | [place] | | [facility] | | | | [address];[place] [address] | | LABORATORY | | + + + + + + + + | Specimen | + + | Blood | + + + + + + + | Performing | Address | City/State/Zipcode | Phone Number | | Organization | | | | + + + + + | REFERENCE LAB | [address] [place] [address] | [place] [address] | [phone] | | [facility] | [address] | | | | LABORATORY | | | | + + + + + | REFERENCE LAB | [address] [place] [address] | [place] [address] | | | [facility] | [address] | [...] REFERENCE | | | | performed at [facility];[address] | | LAB | | | | [place] | | [facility] | | | | [address];[place] [address] | | LABORATORY | | + + + + + + + + | Specimen | + + | Blood | + + + + + + + | Performing | Address | City/State/Zipcode | Phone Number | | Organization | | | | + + + + + | REFERENCE LAB | [address] [place] [address] | [place] [address] | [phone] | | [facility] | [address] | | | | LABORATORY | | | | + + + + + | REFERENCE LAB | [address] [place] [address] | [place] [address] | | | [facility] | [address] | [...] REFERENCE | | | | performed at [facility];[address] | | LAB | | | | [facility] | | [facility] | | | | [address];[place] [address] | | LABORATORY | | + + + + + + + + | Specimen | + + | Blood | + + + + + + + | Performing | Address | City/State/Zipcode | Phone Number | | Organization | | | | + + + + + | REFERENCE LAB | [address] | [place] [address] | [phone] | | [facility] | [address] | | | | LABORATORY | | | | + + + + + | REFERENCE LAB | [address] [place] [address] | [place] [address] | | | [facility] | [address] | [...] | | | | | performed at [facility];[address] | | | | | | [facility] | | | | | | Blvd;[place] [address] | | | | | | | | | | + + + + + + + + | Specimen | + + | Blood | + + + + + + + | Performing | Address | City/State/Zipcode | Phone Number | | Organization | | | | + + + + + | REFERENCE LAB | [address] | [place] [address] | [phone] | | [facility] | [address] | | | | LABORATORY | | | | + + + + + | REFERENCE LAB | [address] | [place] [address] | | | [facility] | Blvd. | | | | LABORATORY [...] LAB | | | | performed at [facility];[address] | | [facility] | | | | [place] | | LABORATORY | | | | Blvd;[place] [address] | | | | | | | | | | + + + + + + + + | Specimen | + + | | + + + + + + + | Performing | Address | City/State/Zipcode | Phone Number | | Organization | | | | + + + + + | REFERENCE LAB | [address] [place] [address] | [place] [address] | [phone] | | [facility] | [address] | | | | LABORATORY | | | | + + + + + | REFERENCE LAB | [address] [place] [address] | [place] [address] | | | [facility] | [address] | [...] | | | urine | performed at [facility];[address] | | [facility] | | | | [facility] | | LABORATORY | | | | Blvd;[place] [address] | | | | | | | | | | + + + + + + + + | Specimen | + + | | + + + + + + + | Performing | Address | City/State/Zipcode | Phone Number | | Organization | | | | + + + + + | REFERENCE LAB | [address] [place] [address] | [place] [address] | [phone] | | [facility] | [address] | | | | LABORATORY | | | | + + + + + | REFERENCE LAB | [address] [place] [address] | [place] [id number] | | | [facility] | Bl[address] | [...] +--------+ +---------+--------+ | MEDICARE | MEDICA | [id number] | 09/03/18 | [phone] | | Medica | | | RE | | 99-Pre | 5 | | re | | | PART A | | sent | | | | | | AND B | | | | | | + +--------+ +--------+ +---------+--------+ | MEDICARE | MEDICA | [id number] | 09/03/18 | [phone] | | Medica | | | RE | | 99-Pre | 5 | | re | | | PART A | | sent | | | | | | AND B | | | | | | + +--------+ +--------+ +---------+--------+ | BCBS | BCBS | [id number] | 04/13/18 | | | PPO | | | FEDERA | | 83-Pre | | | | | | L FEP | | sent | | | | + +--------+ +--------+ +---------+--------+ | BCBS | BCBS | [id number] | 04/13/18 | | | PPO | [...] Shasha | al/Fam | | 1935 | [phone] | [address] | | | [place] | | | 2 (Home) | [place] | | | | | | [phone] | [phone] | | | | | | 2 (Work) | | + +--------+ +--------+ + + | Gene Ashley | Person | Self | [birth year] | [address] | | Shasha | al/Fam | | [birth year] | [phone] | [address] | | | [place] | | | 2 (Home) | [place] | | | | | | | [address] | + +--------+ +--------+ + + Advance Directives Patient has advance care planning documents on file. For more information, please contact:[facility] [place] [address]"
--- OUTSIDE RECORDS SUMMARY | ~2019-02-04 | XMS | Encounter Summary ---
Demographics + + + | Address | [address] | | | [place] [address] | + + + | Home Phone | | + + + | Preferred Language | Unknown | + + + | Marital Status | | + + + | Taoist Affiliation | 1013 | + + + | Race | Unknown | + + + | Ethnic Group | Unknown | + + + Author + + + | Author | [facility] | | | and [place] | + + + | Organization | [facility] | | | [...] Team Providers + +------+ + | Care Wheelchair Van Operator First Responder Name | Role | Phone | + [...] + + | 11/22/ | Procedure | [facility] | | Persistent atrial | | 2019 | visit | [facility] [place] | | fibrillation (HCC) | | | | [address] | | (Primary Dx); | | | | [place], [place] | | Typical atrial | | | | [address] | | flutter (HCC); | | | | [phone] | | Pacemaker | +--------+ + + [...] | | | | | [place] | | | | | | [address] | | | | | | | [...]
[~2019-02-04 20:21] MED LIST: ALLOPURINOL100 MG PO; ASPIRIN EC81 MG PO; CEPHALEXIN500 MG PO; COREG3.125 MG PO; GATIFLOXACIN2.5 ML OPTH; HYDROCODON-ACE1 EAC8 PO; IMDUR30 MG PO; ISOSORBIDE DINI40 MG PO; KEFLEX500 MG PO; KEPPRA500 MG/5 M IV; LIDODERM700 MG TD; LIPITOR80 MG PO; MACROBID 100 M100 MG PO; MAG6464 MG PO; MIRAPEX0.5 MG PO; NEURONTIN300 MG PO; NEURONTIN600 MG PO; OXYCODONE HCL5 MG PO; POTASSIUM CHLO10 ME1 PO; PRILOSEC20 MG PO; PROLENSA1.6 ML OPTH; SERTRALINE HCL100 MG PO; TORSEMIDE20 MG PO; VITAMIN D5000 UNIT PO; WARFARIN SODIU2.5 MG PO; WARFARIN SODIUM5 MG PO; ZOFRAN ODT4 MG PO
[2019-02-04] MEDS ORDERED: ELIQUIS5 M1 PO (20:39)
[2019-02-04] MEDS ORDERED: DIGOXIN125 MCG PO (20:40)
[2019-02-04] MEDS ORDERED: COLACE100 MG PO (20:40)
[2019-02-04] MEDS ORDERED: FEROSUL325 MG PO (20:41)
[2019-02-04] MEDS ORDERED: TIROSINT112 MCG PO (20:41)
[2019-02-04] MEDS ORDERED: FOLIC ACID1 MG PO (20:41)
[2019-02-04] MEDS ORDERED: MIDODRINE HCL5 MG PO (20:44)
--- NOTE | 2019-02-04 23:30 | NUR ---
PATIENT ARRIVED VIA STRETCHER. ABLE TO MOVE HERSELF FROM STRETCHER TO BED WITH MINIMAL ASSIST. VS STABLE. HR 60'S. PATIENT REPORTS SLIGHT SOB AFTER ACTIVITY OF MOVING OVER IN BED. O2 SAT 98% ON ROOM AIR. PATIENT'S DAUGHTER IN ROOM. ADMISSION COMPLETE. PATIENT PROVIDED WITH SANDWICH AND SOME WATER. IV SITE REQUIRED FOR BLOOD PRODUCT ADMINISTRATION. NEEDLE GRINDER PHILIP Rosario PLACED 20G IN LEFT AC.
--- NOTE | 2019-02-05 01:00 | NUR ---
BLOOD PRODUCTS DELAYED DUE TO POOR VASCULAR ACCESS. IV SITE PLACED BY CIGARETTE INSPECTOR NOT PATENT. SECOND IV SITE NOT APPOPRIATE GAUGE. THIS RN, CAROLE RN, ALICIA RN AND CIGARETTE INSPECTOR ATTEMPTED TO PLACE APPROPRIATE IV. PHILIP URIOSTEGUI ABLE TO PLACE 20G IN RIGHT FOOT. SMALL HEMATOMA NOTED AT INSERTION SITE, WATCHING CLOSELY. PATIENT REPORTS LEG "JERKING" AND PAIN IN HER NECK AND BACK. PRN OXY PROVIDED PER ORDER. VS STABLE.
--- NOTE | 2019-02-05 02:11 | NUR ---
BLOOD PRODUCTS INFUSING PER POLICY. NO SIGNS OF REACTION NOTED. LANCEMarlene APPEARS TO BE SLEEPING SOUNDLY.
--- NOTE | 2019-02-05 03:26 | NUR ---
PRBC FINISHED INFUSING. NO SIGNS OF REACTION. PATIENT UP TO BSC TO VOID. HAD SMALL AMOUNT OF DARK RED STOOL. PATIENT FEELS WEAK WITH ACTIVITY. ASSISTED BACK TO BED. WARM BLANKET PROVIDED.
--- NOTE | 2019-02-05 06:00 | NUR ---
PATIENT RESTING IN BED. OPENS EYES WHEN RN ENTERS ROOM. DENIES ANY NEEDS AT THIS TIME.
--- NOTE | 2019-02-05 08:15 | NUR ---
REPORT REC'D FROM HAM ROLLING MACHINE OPERATOR RNs AND PATIENT RESTING IN BED AT THIS TIME. ASSESSMENT COMPLETE. CLEAR LIQUID TRAY ORDERED FOR PATIENT. NEW IV ACCESS TO BE ATTEMPTED FOR PATIENT. PT TIRED MOSTLY. CONTINUE TO MONITOR.
--- NOTE | 2019-02-05 11:27 | NUR ---
DR. CAMILO IN TO SEE PATIENT AT THIS TIME. PT UP TO BSC TO VOID AND TOLERATED THIS WELL. PT GOING TO HAVE A SECOND UNIT OF BLOOD THIS AM. PENDING CROSSMATCH FROM LAB AT THIS TIME.
[2019-02-05] MEDS ORDERED: TORSEMIDE10 MG PO (11:46)
[2019-02-05] MEDS ORDERED: GABAPENTIN300 MG PO (11:47)
[2019-02-05] MEDS ORDERED: MIDODRINE HCL10 MG PO (11:48)
[2019-02-05] MEDS ORDERED: B-12 DOTS500 MCG PO (11:50)
[2019-02-05] MEDS ORDERED: METOPROLOL TART25 MG PO (12:12)
[2019-02-05] MEDS ORDERED: METOPROLOL SUCC25 MG PO (12:13)
--- NOTE | 2019-02-05 12:28 | NUR ---
PATIENT WILL BE BOWEL PREPPED AND SCOPED BOTH UPPER AND LOWER TOMORROW. 2ND UNIT OF BLOOD INFUSING AT THIS TIME. PT'S DAUGHTER RIDGE AT BEDSIDE AND AWARE OF PLAN. IV SITE IN RIGHT INNER FOREARM WORKING WEL.
--- NOTE | 2019-02-05 14:44 | NUR ---
2ND UNIT OF PRBCs FINISHES AT 1438. PT STATES SHE IS SLIGHTLY NAUEASOUS AND GIVEN A EMESIS BAG.
--- NOTE | 2019-02-05 15:01 | NUR ---
PATIENT UP TO BSC TO HAVE FIRST DARK STOOL AND VOIDS. STOOL IS BLACK IN COMMODE, BUT BURGUNDY IN TOILET WATER. PT HAD MEDIUM/LARGE BM. PT WORKING ON 2ND LITER OF MIRALAX/GATORADE BOWEL PREP. BACK IN BED NOW AND RESTING. CALL LIGHT WITHIN REACH.
--- NOTE | 2019-02-05 15:32 | EKG ---
[facility] [address] [place], [place] [address] Signed Atrial fibrillation Nonspecific ST and T wave abnormality Abnormal ECG No previous ECGs available Confirmed by ROSS RAMOS DO ([id number]) on 02/05/2019 3:32:15 PM Electronically Signed By: ROSS RAMOS DO 02/05/19 1532 PATIENT NAME: PAULA CLARK Electrocardiogram DATE OF : 31 PHYSICIAN: ROSS RAMOS DO REPORT #: [id number] REPORT IS CONFIDENTIAL AND NOT TO BE RELEASED WITHOUT AUTHORIZATION
--- NOTE | 2019-02-05 17:42 | NUR ---
PATIENT CONTINUES TO BE UP AND DOWN TO COMMODE WITH BOWEL PREP. PT TOLERATING WELL AT THIS TIME. PT'S FAMILY IN ROOM AND HELPFUL TO PATIENT. PT DENIES FURTHER NEEDS.
--- NOTE | 2019-02-05 19:30 | NUR ---
PT REPORT RECIEVED, CARE ASSUMED AT THIS TIME.
--- NOTE | 2019-02-05 19:54 | NUR ---
IN ROOM FOR ASSESSMENT. ASSISTED PT TO BSC. ONE PERSON ASSIST REQUIRED. PT BACK IN BED. ASSESSMENT COMPLETED AND PLAN OF CARE FOR THE EVENING DISCUSSED. PT REQUESTING PAIN MEDICATION AT THIS TIME FOR 6/10 BACK PAIN. PRN MEDICATION GIVEN (SEE EMAR). CALL LIGHT WITHIN REACH. NO FURTHER NEEDS AT THIS TIME.
--- NOTE | 2019-02-05 21:28 | NUR ---
PT UP TO BSC. BM IS YELLOW LIQUID MIXED WITH URINE.
--- NOTE | 2019-02-06 | NUR ---
IN ROOM FOR ASSESSMENT. ASSISTED PT TO BEDSIDE COMMODE. PT HAS SMALL LIQUID STOOL MIXED WITH URINE. LIGHT YELLOW IN COLOR. BACK IN BED. ASSISTED WITH REPOSITIONING. CALL LIGHT WITHIN REACH. DENIES ANY PAIN OR DIZZINESS AT THIS TIME. WILL CONTINUE TO MONITOR
--- NOTE | 2019-02-06 02:00 | NUR ---
PT RESTING WITH EYES CLOSED. BREATHING EVEN AND UNLABORED. OXYGEN SATURATIONS AT 95 ON ROOM AIR. CALL LIGHT AND PERSONAL BELONGINGS WITHIN REACH OF PATIENT.
--- NOTE | 2019-02-06 04:30 | NUR ---
ANSWERED CALL LIGHT AND ASSISTED PT TO BSC. PT VOIDED, NO BM AT THIS TIME. ASSESSMENT COMPLETED. CALL LIGHT WITHIN REACH. NO FURTHER NEEDS AT THIS TIME.
--- NOTE | 2019-02-06 05:00 | NUR ---
LAB IN ROOM TO DRAW BLOOD
--- NOTE | 2019-02-06 07:26 | NUR ---
REPORT REC'D FROM TIME CLOCK MECHANIC. PATIENT RESTING IN BED AT THIS TIME, LAYING ON HER LEFT SIDE. PATIENT WILL HAVE AN UPPER AND LOWER SCOPE TODAY WITH DR. CAMILO.
--- NOTE | 2019-02-06 08:05 | NUR ---
PATIENT UP TO BSC AND THEN INTO CHAIR FOR THIS AM. PT FEELING WELL THIS AM. ASSESSMENT COMPLETE. PT TALKS TO HER DAUGHTER ON PHONE. PT TAKES MEDS WITH A SIP OF WATER. LR CONTINUES AT 50 ML/HR. SCOPE WILL BE THIS AFTERNOON, AROUND 3 PM. BED LINENS CHANGED. PT TO BE GIVEN SHOWER THIS AM.
--- NOTE | 2019-02-06 10:47 | NUR ---
PATIENT TAKEN DOWN TO SHOWER ROOM AND GIVEN SHOWER. PT TOLERATED WELL. PT NOW BACK IN BED, WAITING FOR HER SCOPE WHICH WILL BE AROUND 1330 THIS AFTERNOON. PT REMAINS NPO. DENIES FURTHER NEEDS AND CALL LIGHT WITHIN REACH.
--- NOTE | 2019-02-06 12:42 | NUR ---
PATIENT UP TO BSC TO VOID. PT NERVOUS ABOUT HER UPCOMING PROCEDURE. DISCUSSED THIS WITH PATIENT AND ATTEMPTED TO EASE HER MIND. PT'S DAUGHTER CALLS AND CELL PHONE PLUGGED IN FOR PATIENT. PT EAGER TO HAVE HER PROCEDURE DONE.
--- NOTE | 2019-02-06 13:36 | NUR ---
PT LEFT FLOOR FOR OR CASE WITH STEPHANIE URIOSTEGUI.
--- NOTE | 2019-02-06 13:55 | NUR ---
UNABLE TO ASSESS AT THIS TIME, PATIENT IN OR.
--- NOTE | 2019-02-06 14:54 | NUR ---
PATIENT RETURNS FROM SCOPE AT 1439 ON STRETCHER. PT DROWSY AT THIS TIME. WEANED TO ROOM AIR. PATIENT STARTING TO WAKE UP AND ASKS, "NO CANCER? AM I DONE? WHAT ROOM AM I IN?" PATIENT INFORMED OF WHAT THE ANESTHESIA PROVIDER TOLD THIS RN WHEN PATIENT WAS BROUGHT BACK FROM SURGERY. IVF CONTINUE AT 50 ML/HR. PENDING FURTHER ORDERS FROM DR. CAMILO. WARM BLANKETS PROVIDED.
--- NOTE | 2019-02-06 15:46 | NUR ---
PATIENT UP TO BSC TO VOID AND HAD SMALL AMOUNT OF LIQUID BM. PT NOW FINISHING CLEAR LIQUID TRAY AND TOLERATING IT WELL. PT FORGETFUL AFTER HER SCOPE, AND ASKING OFTEN IF WE HAVE HEARD FROM DR. CAMILO YET. PT IS ORIENTED X4. CONTINUE TO MONITOR.
--- NOTE | 2019-02-06 17:30 | NUR ---
PATIENT CONTINUES TO REST IN BED AT THIS TIME. PT TO BE TRANSFERRED TO MED/SURG. IV FLUIDS TO BE D/C. PT CAN BE ADVANCED DIET TOLERATED. PT UPDATED.
--- NOTE | 2019-02-06 19:17 | NUR ---
REPORT RECIEVED FROM CCU RN. CARE ASSUMED AT THIS TIME.
--- NOTE | 2019-02-06 20:08 | NUR ---
IN TO ASSESS PATIENT. GIVEN PM MEDICATION AND PRN PAIN MEDICATION FOR 6/10 NECK PAIN (SEE EMAR). PT ALERT AND ORIENTED, UNDERSTANDS PLAN OF CARE FOR EVENING. CALL LIGHT WITHIN REACH. NO FURTHER NEEDS AT THIS TIME.
--- NOTE | 2019-02-06 20:41 | NUR ---
DAUGHTER IN VISITING WITH PATIENT AT THIS TIME.
--- NOTE | 2019-02-06 20:58 | NUR ---
PT UP TO BSC. ONE PERSON ASSIST REQUIRED. PT BACK IN BED, WARM BLANKETS PROVIDED. DAUGHTER REMAINS AT BEDSIDE. NO FURTHER NEEDS AT THIS TIME.
--- NOTE | 2019-02-06 21:00 | NUR ---
DAUGHTER RIDGE STATES PATIENT SEEMS MORE CONFUSED THAN NORMAL. PT ALERT AND ORIENTED TO PLACE AND SITUATION WHEN REMINDED. WILL CONTINUE TO MONITOR.
--- NOTE | 2019-02-06 22:00 | NUR ---
PT CALLING OUT FOR RIDGE (HER DAUGHTER). REORIENTED PATIENT TO TIME, PLACE, SITUATION, AND LOCATION. PT UP TO BEDSIDE COMMODE. REPORTS MILD ABDOMINAL PAIN AND URGENCY TO URINATE. APPEARS MORE CONFUSED THAN EARLIER IN THE SHIFT. BED ALARM ON, CALL LIGHT WITHIN REACH. WILL CONTINUE TO MONITOR.
--- NOTE | 2019-02-07 00:01 | NUR ---
ASSISTED PT TO BSC. HEART RATE UP TO 140 WITH ACTIVITY. AT REST HEART RATE 90-100. MD NOTIFIED, ORDERS RECIEVED ( SEE EMAR).
--- NOTE | 2019-02-07 01:11 | NUR ---
LAB RESULTS FOR URINALYSIS RECIEVED, NOTIFIED, ORDERS FOR ABX RECIEVED (SEE EMAR).
--- NOTE | 2019-02-07 03:08 | NUR ---
PT RESTING WITH EYES CLOSED. BREATHING EVEN AND UNLABORED. BED ALARM ON FOR SAFETY. CALL LIGHT AND PERSONAL ITEMS IN REACH.
--- NOTE | 2019-02-07 03:51 | NUR ---
ASSISTED PT TO BSC. PT APPEARS MORE ORIENTED TO SITUATION AND LOCATION AT THIS TIME. STEADY ON FEET WHEN AMBULATING. BACK IN BED AT THIS TIME. CALL LIGHT WITHIN REACH. BED ALARM ON FOR SAFETY.
--- NOTE | 2019-02-07 05:30 | NUR ---
LAB IN TO DRAW BLOOD
--- NOTE | 2019-02-07 06:53 | NUR ---
PT UP IN CHAIR AT THIS TIME. CALL LIGHT WITHIN REACH AND VISIBLE FROM NURSES STATION.
--- NOTE | 2019-02-07 07:45 | NUR ---
REPORT REC'D FROM STUDIO PRODUCER RNs. PT SITTING IN CHAIR, WATCHING TV AT THIS TIME. ASSESSMENT TO BE COMPLETED.
--- NOTE | 2019-02-07 09:09 | NUR ---
PATIENT USES CALL LIGHT AND WANTING TO GET BACK INTO BED. PT ASSISTED TO BSC THEN TO BED. PT RESTING NOW. VOIDS SMALL AMOUNT AND HAS SMALL AMOUNT OF LIQUID BM. CALL LIGHT WITHIN REACH.
--- NOTE | 2019-02-07 09:59 | NUR ---
PATIENT GIVEN HOME MEDICATIONS FOR BP AND FOR PAIN. PATIENT COMPLAINING OF ABDOMINAL PAIN. PT CURIOUS AGAIN ABOUT THE RESULTS OF YESTERDAY'S SCOPE. PT HAS BEEN TALKING WITH HER DAUGHTER ON THE PHONE. PT WANTING TO BE D/C SO SHE CAN GO TO [place] TO MICHAEL HER NEW GLASSES.
[2019-02-07] MEDS ORDERED: KEFLEX500 MG PO (11:01)
[2019-02-07] MEDS ORDERED: OMEPRAZOLE20 MG PO (11:11)
--- NOTE | 2019-02-07 11:20 | NUR ---
DR. RAMOS IN TO SEE PATIENT. PATIENT TO D/C HOME. PT WALKS IN HALLWAY AND TOLERATED WELL, DID BECOME SLIGHTLY DIZZY AFTER APPROX 15 STEPS AND HAD TO SIT ON HER WALKER, BUT RECOVERED WELL. SP02 97% ON ROOM AIR. PT'S LUNG SOUNDS REMAINS UNCHANGED. PT VISITING WITH EHR DAUGHTER. D/C PAPERWORK TO BE ORGANIZED.
--- NOTE | 2019-02-07 18:53 | OR ---
[facility] [address] [place], [place] [address] Signed DATE OF OPERATION: 02/06/2019 SURGEON: Sandhya Camilo MD PREOPERATIVE DIAGNOSES: 1. Severe anemia (hematocrit 21.1 prior to transfusion). 2. Recent hematochezia and previous melena. 3. History of Hill posterior gastropexy for reflux disease. POSTOPERATIVE DIAGNOSES: 1. No evidence of lesion to account for bleeding on upper endoscopy; mild gastritis. 2. Normal-appearing colon except for a small polyp in the left colon and internal hemorrhoids. PROCEDURES PERFORMED: 1. Esophagogastroduodenoscopy with biopsy. 2. Total colonoscopy to cecum with cold morcellation polypectomy x1. ANESTHESIA: Intravenous sedation, propofol infusion; Sarah Nuno CRNA. INDICATION: This 83-year-old white woman is a patient Dr. Pisano, who admitted her to the hospital on 02/04/2019, with hematochezia and dark black stool leading up to that admission. She was found to have a hematocrit of 21.1. She has been transfused with 2 units of packed red cells. Her hematocrit currently is 31. Of note, she is chronically anticoagulated for atrial fibrillation with apixaban. She has undergone a bowel prep and is to undergo upper endoscopy and colonoscopy at this time to identify source of bleeding. The risks of bleeding, infection, and perforation related to endoscopic evaluation was reviewed with her and her daughter, who is a nurse. They understand and wished to proceed. FINDINGS: Upper endoscopy showed no evidence of esophagitis, Billings's epithelium, stricture neoplasm, or other source of bleeding. There was mild gastritis. CLOtest was negative 30 minutes postprocedure. On colonoscopy, the prep was reasonably good. There was no evidence of blood either old or new. Complete colonoscopy was undertaken to the cecum showing only a small polyp of the left colon, which was excised and internal hemorrhoids. To be certain, the colonoscopy was repeated all the way to the cecum with irrigation of the cecum and attempts to enter the ileum, but there was some residual non-bloody stool in the region Electronically Signed By: SANDHYA CAMILO MD 02/07/19 1853 PATIENT NAME: PAULA CLARK OPERATIVE REPORT DATE OF : 31 REPORT #: [id number] PHYSICIAN: SANDHYA CAMILO MD PCP: RONI AUGUSTE DO REPORT IS CONFIDENTIAL AND NOT TO BE RELEASED WITHOUT AUTHORIZATION [facility] [address] [place], [place] [address] Signed which precluded intubation of the ileum despite efforts to do so. DESCRIPTION OF PROCEDURE: The patient was brought to the endoscopy suite and placed in lateral decubitus position, given intravenous sedation with propofol infusional technique by the fruit grader with full cardiopulmonary monitoring. A bite block was placed. An Olympus video upper endoscope passed in the hypopharynx. The vocal cords and proximal tissues were normal. Scope was advanced to the esophagus throughout its length, it appeared normal. Scope was advanced to the stomach, which was insufflated with air. There was no blood clots, bleeding, blood, or other abnormality. Pylorus was normal. Scope was passed through into the duodenum, which was normal. Biopsies were obtained there to assess for celiac disease. The scope was withdrawn and mild antral gastritis was noted. There was no ulceration. Biopsies were obtained for JOSE and pathologic testing. Retroflexed view was undertaken showing a good flap valve overall (mindful of previous Hill repair 2008). The scope was then withdrawn to the distal esophagus, which appeared normal. Careful withdrawal of scope was undertaken. Biopsies taken of the distal esophagus. Further withdrawal of scope showed no other findings. Plans were then made for colonoscopy. Digital rectal examination was performed showing no sign of anorectal abnormality. An Olympus video colonoscope was passed in the rectum and manipulated throughout the colon ultimately intubating the cecum itself. There was no sign of blood or clot or other abnormality. Irrigation was undertaken. The scope was carefully withdrawn. Upon withdrawal, there was a small polyp of the left colon which was excised with cold morcellation technique. Withdrawal of scope to the rectum showed no abnormality other than some internal hemorrhoids. Line fluoro showed significant bleeding and presumption of a lower source, the colonoscopy was completely repeated without too much of an issue, ultimately intubating the cecum once again. Attempts were made to intubate the ileum, but due to some residual stool (nonbloody) the scope could not enter the ileum. Good visualization of the cecum was afforded, however. The scope was then again carefully withdrawn and examination throughout showed no sign of abnormality. Retroflexed view again confirmed some internal hemorrhoidal change with no sign of active bleeding. The scope was removed and the patient was taken to recovery room in good condition. Uncertain etiology of anemia, hematochezia, and possible melena. PLAN: She will return to the ongoing care of Dr. Pisano. Would probably maintain a PPI medication on the short-term high-fiber diet otherwise. Further bleeding should warrant a small bowel evaluation likely to include a packed red blood cell scan. Electronically Signed By: SANDHYA CAMILO MD 02/07/19 1853 PATIENT NAME: PAULA CLARK OPERATIVE REPORT DATE OF : 31 REPORT #: [id number] PHYSICIAN: SANDHYA CAMILO MD PCP: RONI AUGUSTE DO REPORT IS CONFIDENTIAL AND NOT TO BE RELEASED WITHOUT AUTHORIZATION [address] [place], [place] [address] Signed MD BETTYE Rivera/HARLANL /[id number] cc: DO Filipe Vigil MD Copies: RONI AUGUSTE BRIAN DO ~ Electronically Signed By: SANDHYA CAMILO MD 02/07/19 1853 PATIENT NAME: PAULA CLARK OPERATIVE REPORT DATE OF : 31 REPORT #: [id number] PHYSICIAN: SANDHYA CAMILO MD PCP: RONI AUGUSTE DO REPORT IS CONFIDENTIAL AND NOT TO BE RELEASED WITHOUT AUTHORIZATION
--- NOTE | 2019-02-07 18:53 | CONS ---
[facility] [address], [place] [address] Signed DATE OF CONSULTATION: 02/05/2019 CONSULTING PHYSICIAN: Sandhya Camilo MD REQUESTING PHYSICIAN: Filipe Pisano MD PROBLEMS: Several weeks of melena and recent hematochezia. HISTORY OF PRESENT ILLNESS: This 83-year-old white woman is well known to me from the past having undergone Hill posterior gastropexy for intractable reflux disease in 2007. She has subsequently undergone incisional hernia repair by me in 2010 with implantation of mesh. 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 For the past few weeks at home, she has had very dark black type stool consistent with melena. She continues to take anticoagulant apixaban (Eliquis) for prophylaxis against stroke given her longstanding atrial fibrillation. Indeed, the patient took a dose even yesterday. Though she is known to have chronic heart failure and chronic kidney disease with somewhat elevated creatinine of 1.57, she is reasonably functional and has been hemodynamically stable since admission to the hospital. Consultation is made for possible colonoscopy given her hematochezia and finding of a CBC at presentation of a hematocrit of 21.1 with hemoglobin of 6.9. Notably, her platelet count was 160,000 yesterday and 131,000 today. She is on aspirin as well, it is noted. The patient has had no hematemesis at any time. She does have chronic cervical dysphagia for which she is anticipating a motility study by what sounds like video esophagogram this week actually. She is due to see a speech therapist in conjunction with this. REVIEW OF SYSTEMS: She denies any hematemesis. She has only had blood per rectum. Denies abdominal pain. She has no complaints or symptoms or signs of reflux currently. SOCIAL HISTORY: Electronically Signed By: SANDHYA CAMILO MD 02/07/19 1853 PATIENT NAME: PAULA CLARK CONSULTATION DATE OF : 31 REPORT #: [id number] PHYSICIAN: SANDHYA CAMILO MD PCP: RONI AUGUSTE DO REPORT IS CONFIDENTIAL AND NOT TO BE RELEASED WITHOUT AUTHORIZATION [facility] [address], [place] [address] Signed She is accompanied by her daughter, who is a former nurse at [employer], now working in [place]. PHYSICAL EXAMINATION: GENERAL: Pleasant white woman, who seems reasonably alert and oriented. She has some difficulty with speech, likely related to prior neurologic issues. Trachea is midline. CHEST: Shows normal respiratory excursion. She has no tachypnea. There is no audible wheeze. ABDOMEN: Obese, but generally soft. There is no focal mass or tenderness. I see no ecchymosis. No ascites. EXTREMITIES: Show no clubbing, cyanosis, or edema. LABORATORY DATA: Lab studies recently show a digoxin level of 1.28 on February 04. Her Chem profile shows a creatinine improving now at 1.50 down from 1.57. BNP is 973 yesterday. Coag studies show a ProTime of 25.5 corresponding to an INR of 2.3. CBC today shows white count 5.9 and hematocrit 24.8 following 1 unit of blood transfusion, anticipating a second unit today. ASSESSMENT AND PLAN: She has had what sounds like hematochezia recently. She had what sounds like melena preceding that for several weeks. She certainly does have a low hematocrit and has anticoagulant therapy, which may contribute to significant anemia with only trivial lesion causing bleeding. I am unaware of her last colonoscopy and review of her record does not demonstrate that. She certainly has undergone upper endoscopy by me a number of years ago. I would recommend upper endoscopy concurrent to her plan for colonoscopy as a propofol infusional sedation may be most appropriate given her numerous medical comorbidities. Certainly, she is off her thrombin inhibitor currently, though she took a dose yesterday. We will check her coag studies tomorrow. One would be cautious in interventions if coagulopathy was significant. She appears hemodynamically stable at this time. Although there are risks to withdrawal of anticoagulants in the setting of atrial fibrillation. The risks of bleeding and exsanguination are considerably higher and withholding of anticoagulants is quite appropriate as is being done. The risks of bleeding, infection, perforation, and so forth were reviewed with the patient and her daughter who attends to her. We will plan to do this tomorrow and check lab studies in the morning. Sandhya Camilo MD Electronically Signed By: SANDHYA CAMILO MD 02/07/19 8621 PATIENT NAME: PAULA CLARK CONSULTATION DATE OF : 31 REPORT #: [id number] PHYSICIAN: SANDHYA CAMILO MD PCP: RONI AUGUSTE DO REPORT IS CONFIDENTIAL AND NOT TO BE RELEASED WITHOUT AUTHORIZATION [address] [address] Signed /[facility] /[id number] cc: DO Filipe Vigil MD Copies: RONI AUGUSTE BRIAN DO ~ Electronically Signed By: SANDHYA CAMILO MD 02/07/19 1853 PATIENT NAME: PAULA CLARK CONSULTATION DATE OF : 31 REPORT #: [id number] PHYSICIAN: SANDHYA CAMILO MD PCP: RONI AUGUSTE DO REPORT IS CONFIDENTIAL AND NOT TO BE RELEASED WITHOUT AUTHORIZATION
--- NOTE | 2019-02-08 10:29 | PATH ---
[facility] [address], [place] [address] Signed SPECIMEN(S): A DUODENUM SPECIMEN(S): B PROXIMAL STOMACH SPECIMEN(S): C ANTRUM/PYLORUS SPECIMEN(S): D DISTAL LOWER ESOPHAGUS SPECIMEN(S): E DESCENDING POLYP SPECIMEN SOURCE: A. DUODENUM B. PROXIMAL STOMACH C. ANTRUM/PYLORUS D. DISTAL LOWER ESOPHAGUS E. DESCENDING POLYP CLINICAL HISTORY: Preop: GI bleed. Postop: EGD mild gastritis. Colon Small polyp x1, hemorrhoids. MICROSCOPIC DESCRIPTION: Histologic sections of all submitted blocks are examined by light microscopy. These findings, together with the gross examination, support the pathologic diagnosis. FINAL PATHOLOGIC DIAGNOSIS: A. Duodenum, biopsy: - Duodenal mucosa with mild increased lamina propria inflammation and focal Josesito gland hyperplasia, suggestive of peptic duodenitis. - No increased intraepithelial lymphocytes. - Normal villous architecture preset. - Negative for dysplasia or malignancy. B. Stomach, proximal, biopsy: - Atrophic oxyntic mucosa with chronic, active gastritis. - No unequivocal Helicobacter organisms seen, see Comment. - Negative for intestinal metaplasia, dysplasia, or malignancy. C. Stomach, antrum, biopsy: - Atrophic antral/oxyntic mucosa with chronic, active gastritis and complete intestinal metaplasia. - Suspicious for Helicobacter organisms, see Comment. - Negative for dysplasia or malignancy. D. Esophagus, lower, biopsy: - Squamous mucosa with changes suggestive of mild reflux esophagitis, see comment. - Negative for intestinal metaplasia, dysplasia, or malignancy. PATIENT NAME: PAULA CLARK PATHOLOGY DATE OF : 31 REPORT #: [id number] PHYSICIAN: DEO WEINER PCP: RONI AUGUSTE DO REPORT IS CONFIDENTIAL AND NOT TO BE RELEASED WITHOUT AUTHORIZATION [facility] [address], [place] [address] Signed E. Colon, descending, polyp, polypectomy: - Tubular adenoma. - Negative for high-grade dysplasia or malignancy. COMMENT: Immunohistochemical stains (with appropriately staining controls) for H. pylori were performed on specimens B and C and show no staining for organisms. However, organisms morphologically suspicious for Helicobacter are present in the antral biopsy. Please correlate with clinical and microbiologic findings. Sections of the distal esophagus (specimen D) demonstrate squamous mucosa with reactive epithelial cell enlargement, very few scattered intraepithelial lymphocytes, and mucosal capillary dilation. These changes could be secondary to mild reflux esophagitis. Clinical correlation required. NAL:cml:C2NR GROSS DESCRIPTION: Five specimens are received in five containers, labeled "VT." A. The specimen, labeled "VT, duodenal biopsy," is received in formalin and consists of a single 0.4 cm jenkins tissue fragment. Specimen is entirely submitted in cassette (A1). B. The specimen, labeled "VT, proximal gastric," is received in formalin and consists of two, 0.2 and 0.4 cm jenkins fragments. Specimen is entirely submitted in cassette (B1). C. The specimen, labeled "VT, antrum biopsy," is received in formalin and consists of two jenkins tissue fragments both measuring 0.2 cm. Specimen is entirely submitted in cassette (C1). D. The specimen, labeled "VT, distal esophageal biopsy," is received in formalin and consists of a single 0.2 cm jenkins-white tissue fragment. Specimen is entirely submitted in cassette (D1). E. The specimen, labeled "VT, descending colon polyp," is received in formalin and consists of a single 0.3 cm jenkins tissue fragment. Specimen is entirely submitted in cassette (E1). AM (under the direct supervision of a pathologist) The Gross Description was prepared using a voice recognition system. The report was reviewed for accuracy; however, sound-alike word errors, addition and/or deletions may occur. If there is any question about this report, please contact Client Services. PATIENT NAME: PAULA CLARK PATHOLOGY DATE OF : 31 REPORT #: [id number] PHYSICIAN: DEO WEINER PCP: RONI AUGUSTE DO REPORT IS CONFIDENTIAL AND NOT TO BE RELEASED WITHOUT AUTHORIZATION [facility] [address], [place] [address] Signed ADDITIONAL NOTES: Immunohistochemical and/or in situ hybridization studies were performed on this case with the appropriate positive controls that react as expected. This test was developed and its performance characteristics determined by [facility]. It has not been cleared or approved by the U.S. Food and Drug Administration. The FDA has determined that such clearance or approval is not necessary. This test is used for clinical purposes. It should not be regarded as investigational or for research. [facility] is certified under the Clinical Laboratory Improvement Amendments of 1988 (CLIA) as qualified to perform high complexity clinical laboratory testing. PERFORMING LABORATORY: The technical component was performed by [facility], [address] [place] [id number] (Cnc Maintenance Mechanic: Jannet Veliz MD; CLIA# [id number]). Professional interpretation was performed by [facility], [facility], [address] [address] (Cnc Maintenance Mechanic: Hector Tanner MD; CLIA# [id number]). Diagnostician: Lizbeth Birmingham MD Pathologist Electronically Signed 02/07/2019 Copies: ~ PATIENT NAME: PAULA CLARK PATHOLOGY DATE OF : 31 REPORT #: [id number] PHYSICIAN: [facility] PCP: RONI AUGUSTE DO REPORT IS CONFIDENTIAL AND NOT TO BE RELEASED WITHOUT AUTHORIZATION
== END 2019-02-07 12:05 | disposition home or self-care (01) | DRG 811 ==
LOC: ED 20:21 → CCU 22:46
PROVIDERS: Surgery; ADMIT Student in an Organized Health Care Education/Training Program
PROC: 30233N1 Transfusion of Nonautologous Red Blood Cells into Peripheral Vein, Percutaneous Approach (ICD-10-PCS; 2019-02-04)
PROC: 0DBG8ZX Excision of Left Large Intestine, Via Natural or Artificial Opening Endoscopic, Diagnostic (ICD-10-PCS; 2019-02-06)
PROC: 0DB98ZX Excision of Duodenum, Via Natural or Artificial Opening Endoscopic, Diagnostic (ICD-10-PCS; principal; 2019-02-06 15:00)
PROC: 0DB68ZX Excision of Stomach, Via Natural or Artificial Opening Endoscopic, Diagnostic (ICD-10-PCS; 2019-02-06 15:00)
DX: D62 Acute posthemorrhagic anemia (principal); K29.71 Gastritis, unspecified, with bleeding; I13.0 Hypertensive heart and chronic kidney disease with heart failure and stage 1 through stage 4 chronic kidney disease, or unspecified chronic kidney disease; N39.0 Urinary tract infection, site not specified; K64.8 Other hemorrhoids; I48.91 Unspecified atrial fibrillation; I25.10 Atherosclerotic heart disease of native coronary artery without angina pectoris; I50.9 Heart failure, unspecified; N18.9 Chronic kidney disease, unspecified; G47.33 Obstructive sleep apnea (adult) (pediatric); N28.9 Disorder of kidney and ureter, unspecified; G25.81 Restless legs syndrome; G89.29 Other chronic pain; E03.9 Hypothyroidism, unspecified; K63.5 Polyp of colon; Z66 Do not resuscitate; Z88.8 Allergy status to other drugs, medicaments and biological substances; Z79.01 Long term (current) use of anticoagulants; Z79.82 Long term (current) use of aspirin; Z79.891 Long term (current) use of opiate analgesic; Z79.899 Other long term (current) drug therapy
CPT/HCPCS: 36415; 36430; 80048; 80053; 80162; 81001; 83735; 83880; 85025; 85610; 85730; 86850; 86900; 86901; 86920; 93005; 93010; 96360; 96361; 99285-25; C9113; J0696; J2704; J7030; J7121; P9016